=== PATIENT | male | born 1985 | race Caucasian/White ===

== ENCOUNTER 2017-03-22 22:04 | Emergency (ER) | payer OTHER ==
[~2017-03-22] VITALS: Ht 170.2 cm; Wt 72.6 kg
[~2017-03-22 22:04] MED LIST: POTASSIUM CHLO20 MEQ PO
[2017-03-22 22:44] LABS: BASOPHILS ABSOLUTE AUTO 0.01 K/mm3 (0.00-0.23); BASOPHILS PERCENT AUTO 0 % (0-2); EOSINOPHILS PERCENT AUTO 0 % (0-6); Hematocrit 51.3 % (37.0-53.0); Hemoglobin 17.6 g/dL (13.5-17.5); IMMATURE GRAN ABSOLUTE AUTO 0.13 K/mm3 (0.00-0.10); IMMATURE GRAN PERCENT AUTO 1 % (0-1); LYMPHOCYTES ABSOLUTE AUTO 1.17 K/mm3 (0.84-5.20); LYMPHOCYTES PERCENT AUTO 6 % (21-46); MONOCYTES ABSOLUTE AUTO 0.85 K/mm3 (0.16-1.47); MONOCYTES PERCENT AUTO 5 % (4-13); Mean Corpuscular HGB 30.5 pg (26.0-34.0); Mean Corpuscular HGB Conc 34.3 g/dL (31.5-36.5); Mean Corpuscular Volume 89 fL (80-100); Mean Platelet Volume 11.4 fL (9.1-12.4); NEUTROPHILS ABSOLUTE AUTO 16.92 K/mm3 (1.96-9.15); NEUTROPHILS PERCENT AUTO 89 % (41-73); Platelet Count 286 K/mm3 (150-400); RDW Coefficient Variation 13.3 % (11.7-14.2); RDW Standard Deviation 43.3 fL (35.1-46.3); Red Blood Cell Count 5.77 M/mm3 (4.30-5.90); White Blood Cell Count 19.08 K/mm3 (4.00-11.30)
[2017-03-22 23:02] LABS: Alanine Aminotransfer (ALT/SGP 27 U/L (12-78); Albumin, Blood 4.7 g/dL (3.4-5.0); Albumin/Globulin Ratio 1.1 (0.8-1.8); Alk Phos 89 U/L (50-136); Anion Gap 11 mmol/L (6-16); Aspartate Aminotrans (AST/SGOT 19 U/L (12-37); Bilirubin, Total 0.8 mg/dL (0.1-1.0); Blood Urea Nitrogen 21 mg/dL (8-24); Bun/Creatinine Ratio 24.1 (12.0-20.0); CO2, Blood 26 mmol/L (21-32); Calcium, Blood 10.2 mg/dL (8.5-10.1); Chloride, Blood 103 mmol/L (98-108); Creatinine, Blood 0.87 mg/dL (0.60-1.20); Globulin, Blood 4.2 g/dL (2.2-4.0); Glomerular Filtration Rate >60 (60-); Glucose, Blood 203 mg/dL (70-99); Potassium, Blood 3.8 mmol/L (3.5-5.5); Sodium, Blood 140 mmol/L (136-145); Total Protein, Blood 8.9 g/dL (6.4-8.2)
[2017-03-23] MEDS ORDERED: PROM25 PO (03:42)
[2017-10-13] MEDS ORDERED: ACET325 PO (09:04)
[2017-10-13] MEDS ORDERED: CIPR500 PO (09:04)
[2017-10-13] MEDS ORDERED: CLIN150 PO (09:08)
[2017-10-13] MEDS ORDERED: PANT20 PO (09:08)
[2017-10-13] MEDS ORDERED: PROM25 PO (09:09)
[2018-02-17] MEDS ORDERED: K-Dur20 MEQ PO (13:38)
[2018-02-17] MEDS ORDERED: ONDA4ODT MM (13:38)
== END 2017-03-23 03:55 | disposition home or self-care (01) ==
LOC: ER 22:04
PROVIDERS: Emergency Medicine
DX: A08.4 Viral intestinal infection, unspecified (principal); Z87.891 Personal history of nicotine dependence; Z88.0 Allergy status to penicillin; Z88.5 Allergy status to narcotic agent
CPT/HCPCS: 36415; 74177; 80053; 83690; 85025; 96361; 96374; 96375; 99284; J1170; J2405; J2550; J7030; Q9967

== ENCOUNTER 2017-06-22 18:51 | Emergency (ER) | payer OTHER ==
[~2017-06-22] VITALS: Ht 172.7 cm; Wt 61.2 kg
[~2017-06-22 18:51] MED LIST changes: +PROM25 PO
[2017-06-22 19:19] LABS: Source, Urine Clean Catch
[2017-06-22 19:24] LABS: BASOPHILS ABSOLUTE AUTO 0.02 K/mm3 (0.00-0.23); BASOPHILS PERCENT AUTO 0 % (0-2); EOSINOPHILS PERCENT AUTO 0 % (0-6); Hematocrit 49.6 % (37.0-53.0); Hemoglobin 17.6 g/dL (13.5-17.5); IMMATURE GRAN ABSOLUTE AUTO 0.08 K/mm3 (0.00-0.10); IMMATURE GRAN PERCENT AUTO 1 % (0-1); LYMPHOCYTES ABSOLUTE AUTO 0.77 K/mm3 (0.84-5.20); LYMPHOCYTES PERCENT AUTO 6 % (21-46); MONOCYTES ABSOLUTE AUTO 0.38 K/mm3 (0.16-1.47); MONOCYTES PERCENT AUTO 3 % (4-13); Mean Corpuscular HGB 30.1 pg (26.0-34.0); Mean Corpuscular HGB Conc 35.5 g/dL (31.5-36.5); Mean Corpuscular Volume 85 fL (80-100); Mean Platelet Volume 11.2 fL (9.1-12.4); NEUTROPHILS ABSOLUTE AUTO 12.79 K/mm3 (1.96-9.15); NEUTROPHILS PERCENT AUTO 91 % (41-73); Platelet Count 268 K/mm3 (150-400); RDW Coefficient Variation 12.6 % (11.7-14.2); RDW Standard Deviation 38.3 fL (35.1-46.3); Red Blood Cell Count 5.84 M/mm3 (4.30-5.90); White Blood Cell Count 14.04 K/mm3 (4.00-11.30)
[2017-06-22 19:27] LABS: Appearance, Urine Hazy (Clear); Bilirubin, Urine Neg (Neg); Blood, Urine 2+ (Neg); Color, Urine Yellow (P-Yellow); Glucose Qualitative, Urine Neg (Neg); Ketones, Urine 4+ (Neg); Leukocyte Esterase, Urine 1+ (Neg); Nitrite, Urine Neg (Neg); Protein, Urine 2+ (Neg); Urobilinogen, Urine NORM (Normal)
[2017-06-22 19:39] LABS: Mucus Light (0-Heavy)
[2017-06-22 19:40] LABS: Amorphous Light (0-Heavy); Bacteria Few /hpf; Squamous Epithelial Cells Few /hpf (Few); White Blood Cells, Urine 0-2 /hpf (0-5)
[2017-06-22 19:42] LABS: Alanine Aminotransfer (ALT/SGP 31 U/L (12-78); Albumin, Blood 4.8 g/dL (3.4-5.0); Albumin/Globulin Ratio 1.3 (0.8-1.8); Alk Phos 68 U/L (50-136); Anion Gap 8 mmol/L (6-16); Aspartate Aminotrans (AST/SGOT 21 U/L (12-37); Bilirubin, Total 0.9 mg/dL (0.1-1.0); Blood Urea Nitrogen 17 mg/dL (8-24); Bun/Creatinine Ratio 19.1 (12.0-20.0); CO2, Blood 26 mmol/L (21-32); Calcium, Blood 9.8 mg/dL (8.5-10.1); Chloride, Blood 102 mmol/L (98-108); Creatinine, Blood 0.89 mg/dL (0.60-1.20); Globulin, Blood 3.6 g/dL (2.2-4.0); Glomerular Filtration Rate >60 (60-); Glucose, Blood 164 mg/dL (70-99); Potassium, Blood 3.7 mmol/L (3.5-5.5); Sodium, Blood 136 mmol/L (136-145); Total Protein, Blood 8.4 g/dL (6.4-8.2)
[2017-06-22] MEDS ORDERED: Phenergan25 MG PR (22:48)
[2017-06-22] MEDS ORDERED: Zofran Odt4 MG SL (22:48)
[2017-06-23] MEDS ORDERED: Ultram50 MG PO (18:49)
[2017-06-23] MEDS ORDERED: Protonix40 MG PO (18:49)
[2017-06-23] MEDS ORDERED: Zofran Odt8 MG SL (18:49)
== END 2017-06-22 22:57 | disposition home or self-care (01) ==
LOC: ER 18:51
PROVIDERS: Emergency Medicine
DX: K52.9 Noninfective gastroenteritis and colitis, unspecified (principal); Z88.0 Allergy status to penicillin; Z88.5 Allergy status to narcotic agent; Z87.891 Personal history of nicotine dependence
CPT/HCPCS: 36415; 74176; 80053; 81001; 83690; 85025; 87086; 93005; 93010; 96361; 96374; 96375; 96376; 99284; J2405; J2550; J3010; J7030

== ENCOUNTER 2017-06-23 13:46 | Emergency (ER) | payer OTHER ==
[~2017-06-23] VITALS: Ht 172.7 cm; Wt 61.2 kg
[~2017-06-23 13:46] MED LIST changes: +Phenergan25 MG PR; +Zofran Odt4 MG SL
[2017-06-23 14:27] LABS: BASOPHILS ABSOLUTE AUTO 0.02 K/mm3 (0.00-0.23); BASOPHILS PERCENT AUTO 0 % (0-2); EOSINOPHILS PERCENT AUTO 0 % (0-6); Hematocrit 49.4 % (37.0-53.0); Hemoglobin 17.5 g/dL (13.5-17.5); IMMATURE GRAN ABSOLUTE AUTO 0.07 K/mm3 (0.00-0.10); IMMATURE GRAN PERCENT AUTO 0 % (0-1); LYMPHOCYTES ABSOLUTE AUTO 1.84 K/mm3 (0.84-5.20); LYMPHOCYTES PERCENT AUTO 11 % (21-46); MONOCYTES ABSOLUTE AUTO 1.46 K/mm3 (0.16-1.47); MONOCYTES PERCENT AUTO 9 % (4-13); Mean Corpuscular HGB 29.6 pg (26.0-34.0); Mean Corpuscular HGB Conc 35.4 g/dL (31.5-36.5); Mean Corpuscular Volume 84 fL (80-100); NEUTROPHILS ABSOLUTE AUTO 13.06 K/mm3 (1.96-9.15); NEUTROPHILS PERCENT AUTO 79 % (41-73); Platelet Count 277 K/mm3 (150-400); RDW Coefficient Variation 12.6 % (11.7-14.2); RDW Standard Deviation 38.5 fL (35.1-46.3); Red Blood Cell Count 5.91 M/mm3 (4.30-5.90); White Blood Cell Count 16.45 K/mm3 (4.00-11.30)
[2017-06-23 14:50] LABS: Alanine Aminotransfer (ALT/SGP 31 U/L (12-78); Albumin, Blood 4.6 g/dL (3.4-5.0); Albumin/Globulin Ratio 1.2 (0.8-1.8); Alk Phos 63 U/L (50-136); Anion Gap 10 mmol/L (6-16); Aspartate Aminotrans (AST/SGOT 18 U/L (12-37); Bilirubin, Total 1.2 mg/dL (0.1-1.0); Blood Urea Nitrogen 18 mg/dL (8-24); Bun/Creatinine Ratio 20.7 (12.0-20.0); CO2, Blood 25 mmol/L (21-32); Calcium, Blood 9.4 mg/dL (8.5-10.1); Chloride, Blood 107 mmol/L (98-108); Creatinine, Blood 0.87 mg/dL (0.60-1.20); Globulin, Blood 3.7 g/dL (2.2-4.0); Glomerular Filtration Rate >60 (60-); Glucose, Blood 124 mg/dL (70-99); Potassium, Blood 3.3 mmol/L (3.5-5.5); Sodium, Blood 142 mmol/L (136-145); Total Protein, Blood 8.3 g/dL (6.4-8.2)
[2017-06-23] MEDS ORDERED: Ultram50 MG PO (18:49)
[2017-06-23] MEDS ORDERED: Protonix40 MG PO (18:49)
[2017-06-23] MEDS ORDERED: Zofran Odt8 MG SL (18:49)
== END 2017-06-23 19:54 | disposition home or self-care (01) ==
LOC: ER 13:46
PROVIDERS: Physician Assistant Medical
DX: E87.6 Hypokalemia (principal); Z88.0 Allergy status to penicillin; Z88.5 Allergy status to narcotic agent; Z87.891 Personal history of nicotine dependence
CPT/HCPCS: 36415; 80053; 83690; 85025; 96361; 96374; 96375; 96376; 99283; C9113; J1200; J1630; J2405; J7030

== ENCOUNTER 2017-06-25 10:49 | Emergency (ER) | payer OTHER ==
[~2017-06-25] VITALS: Ht 172.7 cm; Wt 61.2 kg
[~2017-06-25 10:49] MED LIST changes: +Protonix40 MG PO; +Ultram50 MG PO; +Zofran Odt8 MG SL
[2017-06-25 13:05] LABS: Calcium, Ionized (POC) 1.14 mmol/L (1.10-1.46); Chloride (POC) 103 mmol/L (98-108); Creatinine (POC) 0.8 mg/dL (0.8-1.3); Glucose (ISTAT POC) 107 mg/dL (70-99); Hemoglobin (POC) 14.6 g/dL (13.5-17.5); Potassium (POC) 3.1 mmol/L (3.5-5.5); Sodium (POC) 143 mmol/L (135-148); Total CO2 (POC) 26 mmol/L (21-32)
== END 2017-06-25 16:41 | disposition home or self-care (01) ==
LOC: ER 10:49
PROVIDERS: Emergency Medicine
DX: K31.89 Other diseases of stomach and duodenum (principal); R11.2 Nausea with vomiting, unspecified; K59.00 Constipation, unspecified; Z88.0 Allergy status to penicillin; Z88.5 Allergy status to narcotic agent; Z87.891 Personal history of nicotine dependence; Z79.899 Other long term (current) drug therapy
CPT/HCPCS: 80047; 85014; 96374; 99283; J2765

== ENCOUNTER → 2018-02-25 | Outpatient (CLI) | payer OTHER ==
[~2018-02-25] MED LIST changes: +ACET325 PO; +CIPR500 PO; +CLIN150 PO; +K-Dur20 MEQ PO; +ONDA4ODT MM; +PANT20 PO
[2018-02-25 18:14] LABS: Anion Gap 5 mmol/L (6-16); Blood Urea Nitrogen 18 mg/dL (8-24); Bun/Creatinine Ratio 18.3 (12.0-20.0); CO2, Blood 28 mmol/L (21-32); Calcium, Blood 8.7 mg/dL (8.5-10.1); Chloride, Blood 110 mmol/L (98-108); Creatinine, Blood 0.98 mg/dL (0.60-1.20); Glomerular Filtration Rate >60 (60-); Glucose, Blood 80 mg/dL (70-99); Potassium, Blood 4.4 mmol/L (3.5-5.5); Sodium, Blood 143 mmol/L (136-145)
== END ==
LOC: LAB SHORT 17:26 → LAB 17:26
PROVIDERS: Nurse Practitioner Family
DX: E87.6 Hypokalemia (principal)
CPT/HCPCS: 80048

== ENCOUNTER 2018-03-18 11:09 | Emergency (ER) | payer OTHER ==
[~2018-03-18] VITALS: Ht 160 cm; Wt 61.2 kg
[2018-03-18 12:07] LABS: BASOPHILS ABSOLUTE AUTO 0.05 K/mm3 (0.00-0.23); BASOPHILS PERCENT AUTO 0 % (0-2); EOSINOPHILS PERCENT AUTO 0 % (0-6); Hematocrit 51.8 % (37.0-53.0); Hemoglobin 18.6 g/dL (13.5-17.5); IMMATURE GRAN ABSOLUTE AUTO 0.13 K/mm3 (0.00-0.10); IMMATURE GRAN PERCENT AUTO 1 % (0-1); LYMPHOCYTES ABSOLUTE AUTO 2.62 K/mm3 (0.84-5.20); LYMPHOCYTES PERCENT AUTO 18 % (21-46); MONOCYTES ABSOLUTE AUTO 1.39 K/mm3 (0.16-1.47); MONOCYTES PERCENT AUTO 9 % (4-13); Mean Corpuscular HGB 30.4 pg (26.0-34.0); Mean Corpuscular HGB Conc 35.9 g/dL (31.5-36.5); Mean Corpuscular Volume 85 fL (80-100); NEUTROPHILS PERCENT AUTO 72 % (41-73); Platelet Count 312 K/mm3 (150-400); RDW Coefficient Variation 12.6 % (11.7-14.2); RDW Standard Deviation 39.1 fL (35.1-46.3); Red Blood Cell Count 6.12 M/mm3 (4.30-5.90); White Blood Cell Count 14.89 K/mm3 (4.00-11.30)
[2018-03-18 12:24] LABS: Alanine Aminotransfer (ALT/SGP 26 U/L (12-78); Albumin, Blood 4.6 g/dL (3.4-5.0); Albumin/Globulin Ratio 1.3 (0.8-1.8); Alk Phos 69 U/L (50-136); Anion Gap 15 mmol/L (6-16); Aspartate Aminotrans (AST/SGOT 14 U/L (12-37); Bilirubin, Total 1.9 mg/dL (0.1-1.0); Blood Urea Nitrogen 30 mg/dL (8-24); CO2, Blood 27 mmol/L (21-32); Calcium, Blood 9.6 mg/dL (8.5-10.1); Chloride, Blood 91 mmol/L (98-108); Creatinine, Blood 1.07 mg/dL (0.60-1.20); Globulin, Blood 3.6 g/dL (2.2-4.0); Glomerular Filtration Rate >60 (60-); Glucose, Blood 115 mg/dL (70-99); Potassium, Blood 2.9 mmol/L (3.5-5.5); Sodium, Blood 133 mmol/L (136-145); Total Protein, Blood 8.2 g/dL (6.4-8.2)
[2018-03-18 15:12] LABS: Source, Urine Clean Catch
[2018-03-18 15:17] LABS: Blood, Urine 3+ (Neg); Glucose Qualitative, Urine Neg (Neg); Ketones, Urine 4+ (Neg); Leukocyte Esterase, Urine 1+ (Neg); Nitrite, Urine Neg (Neg); Protein, Urine 2+ (Neg); Specific Gravity, Urine 1.015 (1.003-1.022); Urobilinogen, Urine 2+ (Normal)
[2018-03-18 15:46] LABS: Appearance, Urine Hazy (Clear); Bilirubin, Urine 1+ (Neg); Color, Urine Amber (P-Yellow)
[2018-03-18 15:48] LABS: Bacteria Mod /hpf; Hyaline Casts Rare /lpf (0-2); Mucus Mod (0-Heavy); Squamous Epithelial Cells Rare /hpf (Few)
== END 2018-03-18 20:01 | disposition home or self-care (01) ==
LOC: ER 11:09
PROVIDERS: Emergency Medicine
DX: N39.0 Urinary tract infection, site not specified (principal); E87.6 Hypokalemia; Z87.891 Personal history of nicotine dependence
CPT/HCPCS: 36415; 80053; 81001; 83690; 85025; 87086; 93005; 93010; 96361; 96365; 96366; 96375; 96376; 99285-25; J2405; J2550; J2765; J3480; J7030

== ENCOUNTER → 2018-03-20 | Outpatient (CLI) | payer OTHER ==
[2018-03-20 18:03] LABS: BASOPHILS ABSOLUTE AUTO 0.02 K/mm3 (0.00-0.23); BASOPHILS PERCENT AUTO 0 % (0-2); EOSINOPHILS ABSOLUTE AUTO 0.01 K/mm3 (0.00-0.68); EOSINOPHILS PERCENT AUTO 0 % (0-6); Hematocrit 48.3 % (37.0-53.0); Hemoglobin 16.7 g/dL (13.5-17.5); IMMATURE GRAN ABSOLUTE AUTO 0.06 K/mm3 (0.00-0.10); IMMATURE GRAN PERCENT AUTO 1 % (0-1); LYMPHOCYTES PERCENT AUTO 32 % (21-46); MONOCYTES ABSOLUTE AUTO 1.02 K/mm3 (0.16-1.47); MONOCYTES PERCENT AUTO 10 % (4-13); Mean Corpuscular HGB 30.2 pg (26.0-34.0); Mean Corpuscular HGB Conc 34.6 g/dL (31.5-36.5); Mean Corpuscular Volume 87 fL (80-100); Mean Platelet Volume 11.4 fL (9.1-12.4); NEUTROPHILS ABSOLUTE AUTO 6.21 K/mm3 (1.96-9.15); NEUTROPHILS PERCENT AUTO 58 % (41-73); Platelet Count 247 K/mm3 (150-400); RDW Coefficient Variation 12.2 % (11.7-14.2); RDW Standard Deviation 39.4 fL (35.1-46.3); Red Blood Cell Count 5.53 M/mm3 (4.30-5.90); White Blood Cell Count 10.72 K/mm3 (4.00-11.30)
[2018-03-20 18:59] LABS: Alanine Aminotransfer (ALT/SGP 21 U/L (12-78); Albumin, Blood 4.2 g/dL (3.4-5.0); Albumin/Globulin Ratio 1.2 (0.8-1.8); Alk Phos 58 U/L (50-136); Anion Gap 8 mmol/L (6-16); Aspartate Aminotrans (AST/SGOT 15 U/L (12-37); Bilirubin, Total 0.9 mg/dL (0.1-1.0); Blood Urea Nitrogen 16 mg/dL (8-24); Bun/Creatinine Ratio 14.2 (12.0-20.0); CO2, Blood 28 mmol/L (21-32); Chloride, Blood 99 mmol/L (98-108); Creatinine, Blood 1.13 mg/dL (0.60-1.20); Globulin, Blood 3.4 g/dL (2.2-4.0); Glomerular Filtration Rate >60 (60-); Glucose, Blood 105 mg/dL (70-99); Potassium, Blood 3.6 mmol/L (3.5-5.5); Sodium, Blood 135 mmol/L (136-145); Total Protein, Blood 7.6 g/dL (6.4-8.2)
[2018-03-24 14:08] LABS: CHLAMYDIA BY NAA Negative (Negative); GONOCOCCUS BY NAA Negative (Negative); TRICH VAG BY NAA Negative (Negative)
== END ==
LOC: LAB SHORT 17:51 → LAB 17:51
PROVIDERS: Nurse Practitioner Family
DX: R10.9 Unspecified abdominal pain (principal)
CPT/HCPCS: 80053; 83690; 85025; 87491; 87591; 87661

== ENCOUNTER 2018-10-28 13:13 | Emergency (ER) | payer OTHER ==
[~2018-10-28] VITALS: Ht 165.1 cm; Wt 65.8 kg
[2018-10-28 13:38] LABS: BASOPHILS ABSOLUTE AUTO 0.03 K/mm3 (0.00-0.23); BASOPHILS PERCENT AUTO 0 % (0-2); EOSINOPHILS PERCENT AUTO 0 % (0-6); Hematocrit 49.2 % (37.0-53.0); Hemoglobin 16.5 g/dL (13.5-17.5); IMMATURE GRAN ABSOLUTE AUTO 0.07 K/mm3 (0.00-0.10); IMMATURE GRAN PERCENT AUTO 1 % (0-1); LYMPHOCYTES ABSOLUTE AUTO 1.21 K/mm3 (0.84-5.20); LYMPHOCYTES PERCENT AUTO 10 % (21-46); MONOCYTES ABSOLUTE AUTO 0.56 K/mm3 (0.16-1.47); MONOCYTES PERCENT AUTO 4 % (4-13); Mean Corpuscular HGB 30.3 pg (26.0-34.0); Mean Corpuscular HGB Conc 33.5 g/dL (31.5-36.5); Mean Corpuscular Volume 90 fL (80-100); Mean Platelet Volume 10.8 fL (9.1-12.4); NEUTROPHILS ABSOLUTE AUTO 10.75 K/mm3 (1.96-9.15); NEUTROPHILS PERCENT AUTO 85 % (41-73); Platelet Count 270 K/mm3 (150-400); RDW Coefficient Variation 13.1 % (11.7-14.2); RDW Standard Deviation 43.4 fL (35.1-46.3); Red Blood Cell Count 5.45 M/mm3 (4.30-5.90); White Blood Cell Count 12.62 K/mm3 (4.00-11.30)
[2018-10-28 13:51] LABS: Alanine Aminotransfer (ALT/SGP 27 U/L (12-78); Albumin, Blood 4.4 g/dL (3.4-5.0); Albumin/Globulin Ratio 1.2 (0.8-1.8); Alk Phos 58 U/L (50-136); Anion Gap 13 mmol/L (6-16); Aspartate Aminotrans (AST/SGOT 28 U/L (12-37); Bilirubin, Total 0.9 mg/dL (0.1-1.0); Blood Urea Nitrogen 14 mg/dL (8-24); Bun/Creatinine Ratio 18.4 (12.0-20.0); CO2, Blood 21 mmol/L (21-32); Calcium, Blood 9.6 mg/dL (8.5-10.1); Chloride, Blood 108 mmol/L (98-108); Creatinine, Blood 0.76 mg/dL (0.60-1.20); Globulin, Blood 3.6 g/dL (2.2-4.0); Glomerular Filtration Rate >60 (60-); Glucose, Blood 134 mg/dL (70-99); Potassium, Blood 4.1 mmol/L (3.5-5.5); Sodium, Blood 142 mmol/L (136-145)
[2018-10-28] MEDS ORDERED: PROM25 PO (14:52)
== END 2018-10-28 16:30 | disposition home or self-care (01) ==
LOC: ER 13:13
PROVIDERS: Emergency Medicine
DX: R11.2 Nausea with vomiting, unspecified (principal); Z88.0 Allergy status to penicillin; Z88.5 Allergy status to narcotic agent; Z87.891 Personal history of nicotine dependence
CPT/HCPCS: 36415; 80053; 83690; 85025; 96374; 96375; 99284-25; J0780; J1200

== ENCOUNTER 2019-02-17 15:08 | Emergency (ER) | payer OTHER ==
[~2019-02-17] VITALS: Ht 167.6 cm; Wt 63.5 kg
[2019-02-17 15:41] LABS: BASOPHILS ABSOLUTE AUTO 0.05 K/mm3 (0.00-0.23); BASOPHILS PERCENT AUTO 0 % (0-2); EOSINOPHILS ABSOLUTE AUTO 0.01 K/mm3 (0.00-0.68); EOSINOPHILS PERCENT AUTO 0 % (0-6); Hematocrit 53.4 % (37.0-53.0); Hemoglobin 19.5 g/dL (13.5-17.5); IMMATURE GRAN ABSOLUTE AUTO 0.24 K/mm3 (0.00-0.10); IMMATURE GRAN PERCENT AUTO 1 % (0-1); LYMPHOCYTES ABSOLUTE AUTO 1.72 K/mm3 (0.84-5.20); LYMPHOCYTES PERCENT AUTO 7 % (21-46); MONOCYTES ABSOLUTE AUTO 2.46 K/mm3 (0.16-1.47); MONOCYTES PERCENT AUTO 9 % (4-13); Mean Corpuscular HGB 29.9 pg (26.0-34.0); Mean Corpuscular HGB Conc 36.5 g/dL (31.5-36.5); Mean Corpuscular Volume 82 fL (80-100); Mean Platelet Volume 11.5 fL (9.1-12.4); NEUTROPHILS ABSOLUTE AUTO 21.56 K/mm3 (1.96-9.15); NEUTROPHILS PERCENT AUTO 83 % (41-73); Platelet Count 264 K/mm3 (150-400); RDW Coefficient Variation 13.2 % (11.7-14.2); RDW Standard Deviation 38.4 fL (35.1-46.3); Red Blood Cell Count 6.53 M/mm3 (4.30-5.90); White Blood Cell Count 26.04 K/mm3 (4.00-11.30)
[2019-02-17 16:08] LABS: Troponin I 0.086 ng/mL (0.000-0.040)
[2019-02-17 16:09] LABS: Albumin, Blood 5.1 g/dL (3.4-5.0); Albumin/Globulin Ratio 1.3 (0.8-1.8); Bilirubin, Total 1.6 mg/dL (0.1-1.0); Bun/Creatinine Ratio 14.4 (12.0-20.0); Calcium, Blood 9.7 mg/dL (8.5-10.1); Creatinine, Blood 6.48 mg/dL (0.60-1.20); Globulin, Blood 3.9 g/dL (2.2-4.0); Potassium, Blood 4.3 mmol/L (3.5-5.5)
== END 2019-02-17 18:10 | disposition short-term general hospital (02) ==
LOC: ER 15:08
PROVIDERS: Physician Assistant
DX: A41.9 Sepsis, unspecified organism (principal); K22.3 Perforation of esophagus; J98.2 Interstitial emphysema; I21.4 Non-ST elevation (NSTEMI) myocardial infarction; N17.9 Acute kidney failure, unspecified; Z88.0 Allergy status to penicillin; Z88.5 Allergy status to narcotic agent; Z87.891 Personal history of nicotine dependence
CPT/HCPCS: 36415; 74022; 80053; 83690; 84484; 85025; 93005; 93010; 96365; 96375; 99285-25; J0744; J2550; J7030

== ENCOUNTER → 2019-02-25 | Outpatient (CLI) | payer OTHER ==
[2019-02-25 19:38] LABS: BASOPHILS ABSOLUTE AUTO 0.05 K/mm3 (0.00-0.23); BASOPHILS PERCENT AUTO 1 % (0-2); EOSINOPHILS PERCENT AUTO 1 % (0-6); Hematocrit 43.8 % (37.0-53.0); Hemoglobin 14.4 g/dL (13.5-17.5); IMMATURE GRAN ABSOLUTE AUTO 0.26 K/mm3 (0.00-0.10); IMMATURE GRAN PERCENT AUTO 3 % (0-1); LYMPHOCYTES ABSOLUTE AUTO 2.41 K/mm3 (0.84-5.20); LYMPHOCYTES PERCENT AUTO 28 % (21-46); MONOCYTES ABSOLUTE AUTO 0.83 K/mm3 (0.16-1.47); MONOCYTES PERCENT AUTO 10 % (4-13); Mean Corpuscular HGB 29.7 pg (26.0-34.0); Mean Corpuscular HGB Conc 32.9 g/dL (31.5-36.5); Mean Platelet Volume 11.6 fL (9.1-12.4); NEUTROPHILS PERCENT AUTO 58 % (41-73); Platelet Count 256 K/mm3 (150-400); RDW Coefficient Variation 12.6 % (11.7-14.2); RDW Standard Deviation 40.9 fL (35.1-46.3); Red Blood Cell Count 4.85 M/mm3 (4.30-5.90); White Blood Cell Count 8.75 K/mm3 (4.00-11.30)
[2019-02-25 19:39] LABS: Mean Corpuscular Volume 90 fL (80-100)
[2019-02-25 19:46] LABS: Alanine Aminotransfer (ALT/SGP 36 U/L (12-78); Albumin, Blood 3.7 g/dL (3.4-5.0); Albumin/Globulin Ratio 1.2 (0.8-1.8); Alk Phos 44 U/L (50-136); Anion Gap 7 mmol/L (6-16); Aspartate Aminotrans (AST/SGOT 26 U/L (12-37); Bilirubin, Total 0.3 mg/dL (0.1-1.0); Blood Urea Nitrogen 22 mg/dL (8-24); Bun/Creatinine Ratio 24.1 (12.0-20.0); CHOL/HDL RATIO 2.3; CO2, Blood 26 mmol/L (21-32); Calcium, Blood 8.7 mg/dL (8.5-10.1); Chloride, Blood 106 mmol/L (98-108); Cholesterol 123 mg/dL (50-200); Creatinine, Blood 0.91 mg/dL (0.60-1.20); Globulin, Blood 3.1 g/dL (2.2-4.0); Glomerular Filtration Rate >60 (60-); Glucose, Blood 88 mg/dL (70-99); HDL Cholesterol 53 mg/dL (>39); LDL/HDL RATIO 1.1; Low Density Lipoprotein Chol 57 mg/dL (0-110); Potassium, Blood 4.1 mmol/L (3.5-5.5); Sodium, Blood 139 mmol/L (136-145); Total Protein, Blood 6.8 g/dL (6.4-8.2); Triglycerides 64 mg/dL (30-140); Very Low Density Lipoprot Chol 12 mg/dL (6-28)
== END | disposition home or self-care (01) ==
LOC: LAB SHORT 18:43 → LAB 18:43
PROVIDERS: Nurse Practitioner Family
DX: R11.2 Nausea with vomiting, unspecified (principal)
CPT/HCPCS: 80053; 80061; 83690; 85025

== ENCOUNTER → 2019-04-01 | Outpatient (CLI) | payer OTHER ==
[2019-04-01 23:50] LABS: Adenovirus F 40/41 Not Detected (NOT DETECT); Astrovirus Not Detected (NOT DETECT); Campylobacter Sp Not Detected (NOT DETECT); Cryptosporidium Not Detected (NOT DETECT); Cyclospora Cayetanensis Not Detected (NOT DETECT); E. Coli O157 Not Detected (NOT DETECT); Entamoeba Histolytica Not Detected (NOT DETECT); Enteroaggregative E. coli-EAEC Not Detected (NOT DETECT); Enteropathogenic E. coli-EPEC Not Detected (NOT DETECT); Enterotoxigenic E. coli-ETEC Not Detected (NOT DETECT); Giardia Lamblia Not Detected (NOT DETECT); Norovirus GI/GII Not Detected (NOT DETECT); Plesiomonas Shigelloides Not Detected (NOT DETECT); Rotavirus A Not Detected (NOT DETECT); Salmonella Sp Not Detected (NOT DETECT); Sapovirus Not Detected (NOT DETECT); Shiga Toxin-prod E. coli-STEC Not Detected (NOT DETECT); Shigella/Enteroin E. coli-EIEC Not Detected (NOT DETECT); Vibrio Cholerae Not Detected (NOT DETECT); Vibrio Sp Not Detected (NOT DETECT); Yersinia Enterocolitica Not Detected (NOT DETECT)
== END | disposition home or self-care (01) ==
LOC: LAB 16:18 → LAB SHORT 16:18
PROVIDERS: Nurse Practitioner Family
DX: R11.2 Nausea with vomiting, unspecified (principal)
CPT/HCPCS: 0097U; 87324; 87338

== ENCOUNTER 2019-04-30 08:59 | Day surgery (SDC) | payer OTHER ==
[~2019-04-30] VITALS: Ht 167.6 cm; Wt 58.1 kg
[2019-04-30] MEDS ORDERED: ONDA4 PO (09:27)
--- NOTE | 2019-04-30 09:44 | NUR ---
Ambulatory in Day Surgery History, Chart, Medications and Allergies reviewed before start of procedure. Patient States Post-Procedure ride home has been arranged. Patient confirms NPO status and agrees with scheduled surgery.
--- NOTE | 2019-04-30 10:46 | NUR ---
04/30/19 1046 Dmitry Martínez Bite Block Placed. PATIENT DETERMINED TO BE ASA APPROPRIATE FOR PROPOFOL SEDATION PRIOR TO START OF PROCEDURE BY . History, Chart, Medications and Allergies reviewed before start of procedure.MONITOR INTACT WITH CONTINUOUS PULSE OXIMETRY AND INTERMITTENT BP.O2 VIA N/C INTACT THROUGHOUT SEDATION/PROCEDURE.
--- NOTE | 2019-04-30 11:32 | NUR ---
PT RESPONSIVE, BUT VERY SLEEPY. VSS. TOLERATING ORAL FLUIDS. WILL CONTINUE TO MONITOR.
--- NOTE | 2019-04-30 12:24 | NUR ---
Patient up to Ambulate independently. Gait steady. Discharge instructions reviewed with patient. Patient verbalizes understanding. Copy given to patient to take home. Discharged via wheelchair to private car for ride home.
== END 2019-04-30 12:00 | disposition home or self-care (01) ==
LOC: ORSCMMR 08:59 → ORD 10:00 → ORSCMMR 10:00
PROVIDERS: Internal Medicine Gastroenterology
PROC: 0DB78ZX Excision of Stomach, Pylorus, Via Natural or Artificial Opening Endoscopic, Diagnostic (ICD-10-PCS; principal; 2019-04-30 10:00)
DX: R11.2 Nausea with vomiting, unspecified (principal); K25.4 Chronic or unspecified gastric ulcer with hemorrhage
CPT/HCPCS: 88305; J2250; J2704; J7120

== ENCOUNTER 2019-11-18 10:52 | Emergency (ER) | payer OTHER ==
[~2019-11-18] VITALS: Ht 170.2 cm; Wt 61.2 kg
[~2019-11-18 10:52] MED LIST changes: +OMEP20ER PO; +ONDA4 PO
[2019-11-18 11:30] LABS: BASOPHILS ABSOLUTE AUTO 0.03 K/mm3 (0.00-0.23); BASOPHILS PERCENT AUTO 0 % (0-2); EOSINOPHILS ABSOLUTE AUTO 0.02 K/mm3 (0.00-0.68); EOSINOPHILS PERCENT AUTO 0 % (0-6); Hematocrit 50.6 % (37.0-53.0); Hemoglobin 17.1 g/dL (13.5-17.5); IMMATURE GRAN ABSOLUTE AUTO 0.09 K/mm3 (0.00-0.10); IMMATURE GRAN PERCENT AUTO 1 % (0-1); LYMPHOCYTES ABSOLUTE AUTO 2.13 K/mm3 (0.84-5.20); LYMPHOCYTES PERCENT AUTO 18 % (21-46); MONOCYTES ABSOLUTE AUTO 0.51 K/mm3 (0.16-1.47); MONOCYTES PERCENT AUTO 4 % (4-13); Mean Corpuscular HGB 30.4 pg (26.0-34.0); Mean Corpuscular HGB Conc 33.8 g/dL (31.5-36.5); Mean Corpuscular Volume 90 fL (80-100); NEUTROPHILS ABSOLUTE AUTO 9.11 K/mm3 (1.96-9.15); NEUTROPHILS PERCENT AUTO 77 % (41-73); Platelet Count 260 K/mm3 (150-400); RDW Coefficient Variation 12.9 % (11.7-14.2); RDW Standard Deviation 42.5 fL (35.1-46.3); Red Blood Cell Count 5.62 M/mm3 (4.30-5.90); White Blood Cell Count 11.89 K/mm3 (4.00-11.30)
[2019-11-18 11:41] LABS: Albumin, Blood 4.8 g/dL (3.4-5.0); Albumin/Globulin Ratio 1.5 (0.8-1.8); Alk Phos 68 U/L (50-136); Anion Gap 6 mmol/L (6-16); Aspartate Aminotrans (AST/SGOT 27 U/L (12-37); Bilirubin, Total 0.7 mg/dL (0.1-1.0); Blood Urea Nitrogen 11 mg/dL (8-24); Bun/Creatinine Ratio 10.5 (12.0-20.0); CO2, Blood 27 mmol/L (21-32); Calcium, Blood 9.9 mg/dL (8.5-10.1); Chloride, Blood 112 mmol/L (98-108); Creatinine, Blood 1.05 mg/dL (0.60-1.20); Globulin, Blood 3.3 g/dL (2.2-4.0); Glomerular Filtration Rate >60 (60-); Glucose, Blood 137 mg/dL (70-99); Potassium, Blood 3.6 mmol/L (3.5-5.5); Sodium, Blood 145 mmol/L (136-145); Total Protein, Blood 8.1 g/dL (6.4-8.2)
[2019-11-18 11:45] LABS: Alanine Aminotransfer (ALT/SGP 39 U/L (12-78)
[2019-11-18 13:57] LABS: Source, Urine Clean Catch
[2019-11-18 14:02] LABS: Bilirubin, Urine Neg (Neg); Blood, Urine 2+ (Neg); Glucose Qualitative, Urine Neg (Neg); Ketones, Urine 1+ (Neg); Leukocyte Esterase, Urine Neg (Neg); Nitrite, Urine Neg (Neg); Protein, Urine 1+ (Neg); Urobilinogen, Urine NORM (Normal)
[2019-11-18 14:11] LABS: Appearance, Urine Cloudy (Clear); Color, Urine Yellow (P-Yellow)
[2019-11-18 14:12] LABS: Amorphous Mod (0-Heavy); Bacteria Few /hpf; Red Blood Cells, Urine 0-2 /hpf (0-2); Squamous Epithelial Cells Not Seen /hpf (Few); White Blood Cells, Urine 0-2 /hpf (0-5)
[2019-11-18] MEDS ORDERED: COMPAZINE10 MG PO (14:20)
[2019-11-18] MEDS ORDERED: OMEPRAZOLE MAGN20 MG PO (14:20)
== END 2019-11-18 15:32 | disposition home or self-care (01) ==
LOC: ER 10:52
PROVIDERS: Emergency Medicine
DX: K27.9 Peptic ulcer, site unspecified, unspecified as acute or chronic, without hemorrhage or perforation (principal); I10 Essential (primary) hypertension; F12.90 Cannabis use, unspecified, uncomplicated; Z91.19 Patient's noncompliance with other medical treatment and regimen; Z87.891 Personal history of nicotine dependence
CPT/HCPCS: 36415; 74177; 80053; 81001; 83690; 85025; 96361; 96374-59; 96375; 99284-25; J1200; J1630; J2405; J7120; Q9967

== ENCOUNTER → 2019-12-31 | Outpatient (CLI) | payer OTHER ==
[~2019-12-31] MED LIST changes: +COMPAZINE10 MG PO; +OMEPRAZOLE MAGN20 MG PO
[2020-01-01 09:10] LABS: HIV SCREEN 4TH GENERATION WRFX Non Reactive (Non Reactive)
== END | disposition home or self-care (01) ==
LOC: LAB 16:21 → LAB SHORT 16:21
PROVIDERS: Nurse Practitioner Family
DX: Z11.59 Encounter for screening for other viral diseases (principal)
CPT/HCPCS: 86803; 87389

== ENCOUNTER 2020-02-02 13:16 | Emergency (ER) | payer OTHER ==
[~2020-02-02] VITALS: Ht 170.2 cm; Wt 61.2 kg
[2020-02-02 14:02] LABS: BASOPHILS ABSOLUTE AUTO 0.04 K/mm3 (0.00-0.23); BASOPHILS PERCENT AUTO 0 % (0-2); EOSINOPHILS PERCENT AUTO 0 % (0-6); Hematocrit 49.1 % (37.0-53.0); Hemoglobin 16.6 g/dL (13.5-17.5); IMMATURE GRAN ABSOLUTE AUTO 0.13 K/mm3 (0.00-0.10); IMMATURE GRAN PERCENT AUTO 1 % (0-1); LYMPHOCYTES ABSOLUTE AUTO 1.01 K/mm3 (0.84-5.20); LYMPHOCYTES PERCENT AUTO 6 % (21-46); MONOCYTES ABSOLUTE AUTO 0.56 K/mm3 (0.16-1.47); MONOCYTES PERCENT AUTO 3 % (4-13); Mean Corpuscular HGB 29.9 pg (26.0-34.0); Mean Corpuscular HGB Conc 33.8 g/dL (31.5-36.5); Mean Corpuscular Volume 88 fL (80-100); Mean Platelet Volume 11.5 fL (9.1-12.4); NEUTROPHILS ABSOLUTE AUTO 15.54 K/mm3 (1.96-9.15); NEUTROPHILS PERCENT AUTO 90 % (41-73); Platelet Count 261 K/mm3 (150-400); RDW Coefficient Variation 12.9 % (11.7-14.2); RDW Standard Deviation 42.3 fL (35.1-46.3); Red Blood Cell Count 5.56 M/mm3 (4.30-5.90); White Blood Cell Count 17.28 K/mm3 (4.00-11.30)
[2020-02-02 14:23] LABS: Alanine Aminotransfer (ALT/SGP 18 U/L (12-78); Albumin, Blood 4.6 g/dL (3.4-5.0); Albumin/Globulin Ratio 1.3 (0.8-1.8); Alk Phos 59 U/L (50-136); Anion Gap 5 mmol/L (6-16); Aspartate Aminotrans (AST/SGOT 13 U/L (12-37); Bilirubin, Total 0.6 mg/dL (0.1-1.0); Blood Urea Nitrogen 14 mg/dL (8-24); Bun/Creatinine Ratio 15.9 (12.0-20.0); CO2, Blood 26 mmol/L (21-32); Calcium, Blood 9.9 mg/dL (8.5-10.1); Chloride, Blood 111 mmol/L (98-108); Creatinine, Blood 0.88 mg/dL (0.60-1.20); Globulin, Blood 3.6 g/dL (2.2-4.0); Glomerular Filtration Rate >60 (60-); Glucose, Blood 163 mg/dL (70-99); Potassium, Blood 4.4 mmol/L (3.5-5.5); Sodium, Blood 142 mmol/L (136-145); Total Protein, Blood 8.2 g/dL (6.4-8.2)
[2020-02-02 20:35] LABS: Source, Urine Clean Catch
[2020-02-02 20:38] LABS: Appearance, Urine Clear (Clear); Bilirubin, Urine Neg (Neg); Blood, Urine 3+ (Neg); Color, Urine Amber (P-Yellow); Glucose Qualitative, Urine 1+ (Neg); Ketones, Urine 4+ (Neg); Leukocyte Esterase, Urine 1+ (Neg); Nitrite, Urine Neg (Neg); Protein, Urine 2+ (Neg); Specific Gravity, Urine 1.015 (1.003-1.022); Urobilinogen, Urine 1+ (Normal); pH, Urine 6.5 (5.0-8.0)
[2020-02-02 20:43] LABS: Bacteria Many /hpf; Mucus Heavy (0-Heavy); Squamous Epithelial Cells Not Seen /hpf (Few); Yeast/Fungi Urine Few /hpf
[2020-02-02] MEDS ORDERED: CIPR500 PO (21:46)
[2020-02-02] MEDS ORDERED: Flagyl500 MG PO (21:46)
== END 2020-02-02 22:45 | disposition home or self-care (01) ==
LOC: ER 13:16
PROVIDERS: Physician Assistant
DX: K52.9 Noninfective gastroenteritis and colitis, unspecified (principal); N39.0 Urinary tract infection, site not specified; Z87.891 Personal history of nicotine dependence
CPT/HCPCS: 36415; 74022; 74177; 80053; 81001; 83690; 85025; 87086; 96361; 96374-59; 96375; 99285-25; A9270-GY; J1885; J2405; J7030; Q9967

== ENCOUNTER → 2020-02-09 | Outpatient (CLI) | payer OTHER ==
[~2020-02-09] MED LIST changes: +Flagyl500 MG PO; +ONDA4ODT SL
[2020-02-09 18:01] LABS: Appearance, Urine Cloudy (Clear); Blood, Urine 4+ (Neg); Color, Urine Amber (P-Yellow); Glucose Qualitative, Urine Neg (Neg); Ketones, Urine 1+ (Neg); Leukocyte Esterase, Urine 1+ (Neg); Nitrite, Urine Neg (Neg); Protein, Urine 2+ (Neg); Urobilinogen, Urine 1+ (Normal)
[2020-02-09 18:14] LABS: Bilirubin, Urine 1+ (Neg)
[2020-02-09 18:18] LABS: Amorphous Mod (0-Heavy); Bacteria Few /hpf; Mucus Heavy (0-Heavy); Squamous Epithelial Cells Rare /hpf (Few)
== END | disposition home or self-care (01) ==
LOC: LAB 16:35
PROVIDERS: Nurse Practitioner Family
DX: R31.29 Other microscopic hematuria (principal)
CPT/HCPCS: 81001; 87086

== ENCOUNTER → 2020-02-20 | Outpatient (CLI) | payer OTHER ==
[~2020-02-20] MED LIST changes: -ONDA4ODT SL
[2020-02-20 16:04] LABS: Protein, Urine Quantitative 19.7 mg/dL (0.0-11.9)
[2020-02-20 16:07] LABS: Microalbumin, Urine Quant. 9.38 mg/L (0.000-20.000)
== END | disposition home or self-care (01) ==
LOC: LAB SHORT 11:42 → OLS 11:42
PROVIDERS: Internal Medicine Nephrology
DX: N18.1 Chronic kidney disease, stage 1 (principal); D63.1 Anemia in chronic kidney disease; N25.81 Secondary hyperparathyroidism of renal origin; E55.9 Vitamin D deficiency, unspecified; E78.00 Pure hypercholesterolemia, unspecified; N40.1 Benign prostatic hyperplasia with lower urinary tract symptoms; R76.9 Abnormal immunological finding in serum, unspecified; R94.5 Abnormal results of liver function studies; R94.6 Abnormal results of thyroid function studies; D51.8 Other vitamin B12 deficiency anemias; D52.8 Other folate deficiency anemias; D50.9 Iron deficiency anemia, unspecified
CPT/HCPCS: 81050; 82043; 84133; 84156

== ENCOUNTER 2020-03-23 13:42 | Emergency (ER) | payer OTHER ==
[~2020-03-23] VITALS: Ht 170.2 cm; Wt 88.5 kg
[2020-03-23 14:13] LABS: BASOPHILS ABSOLUTE AUTO 0.03 K/mm3 (0.00-0.23); BASOPHILS PERCENT AUTO 0 % (0-2); EOSINOPHILS PERCENT AUTO 0 % (0-6); Hematocrit 48.1 % (37.0-53.0); Hemoglobin 16.2 g/dL (13.5-17.5); IMMATURE GRAN ABSOLUTE AUTO 0.06 K/mm3 (0.00-0.10); IMMATURE GRAN PERCENT AUTO 1 % (0-1); LYMPHOCYTES ABSOLUTE AUTO 1.01 K/mm3 (0.84-5.20); LYMPHOCYTES PERCENT AUTO 8 % (21-46); MONOCYTES ABSOLUTE AUTO 0.45 K/mm3 (0.16-1.47); MONOCYTES PERCENT AUTO 4 % (4-13); Mean Corpuscular HGB 29.8 pg (26.0-34.0); Mean Corpuscular HGB Conc 33.7 g/dL (31.5-36.5); Mean Corpuscular Volume 88 fL (80-100); Mean Platelet Volume 10.7 fL (9.1-12.4); NEUTROPHILS ABSOLUTE AUTO 11.48 K/mm3 (1.96-9.15); NEUTROPHILS PERCENT AUTO 88 % (41-73); Platelet Count 287 K/mm3 (150-400); RDW Coefficient Variation 12.8 % (11.7-14.2); RDW Standard Deviation 41.8 fL (35.1-46.3); Red Blood Cell Count 5.44 M/mm3 (4.30-5.90); White Blood Cell Count 13.03 K/mm3 (4.00-11.30)
[2020-03-23 14:43] LABS: Alanine Aminotransfer (ALT/SGP 24 U/L (12-78); Albumin, Blood 4.4 g/dL (3.4-5.0); Albumin/Globulin Ratio 1.2 (0.8-1.8); Alk Phos 71 U/L (50-136); Anion Gap 9 mmol/L (6-16); Aspartate Aminotrans (AST/SGOT 13 U/L (12-37); Bilirubin, Total 0.6 mg/dL (0.1-1.0); Blood Urea Nitrogen 21 mg/dL (8-24); Bun/Creatinine Ratio 27.5 (12.0-20.0); CO2, Blood 24 mmol/L (21-32); Calcium, Blood 9.5 mg/dL (8.5-10.1); Chloride, Blood 111 mmol/L (98-108); Creatinine, Blood 0.76 mg/dL (0.60-1.20); Globulin, Blood 3.7 g/dL (2.2-4.0); Glomerular Filtration Rate >60 (60-); Glucose, Blood 138 mg/dL (70-99); Potassium, Blood 3.6 mmol/L (3.5-5.5); Sodium, Blood 144 mmol/L (136-145); Total Protein, Blood 8.1 g/dL (6.4-8.2)
[2020-03-23] MEDS ORDERED: ONDA4ODT SL (16:25)
[2020-03-23] MEDS ORDERED: OMEPRAZOLE MAGN20 MG PO (16:25)
== END 2020-03-23 17:08 | disposition home or self-care (01) ==
LOC: ER 13:42
PROVIDERS: Physician Assistant
DX: R10.11 Right upper quadrant pain (principal); R11.2 Nausea with vomiting, unspecified; Z88.0 Allergy status to penicillin; Z88.5 Allergy status to narcotic agent; Z87.891 Personal history of nicotine dependence
CPT/HCPCS: 36415; 74018; 80053; 83690; 85025; 96361; 96374; 96375; 99284-25; J1170; J1200; J1630; J2405; J7120

== ENCOUNTER 2020-03-25 08:47 | Emergency (ER) | payer OTHER ==
[~2020-03-25] VITALS: Ht 170.2 cm; Wt 65.8 kg
[~2020-03-25 08:47] MED LIST changes: +ONDA4ODT SL
[2020-03-25 09:16] LABS: BASOPHILS ABSOLUTE AUTO 0.04 K/mm3 (0.00-0.23); BASOPHILS PERCENT AUTO 0 % (0-2); EOSINOPHILS ABSOLUTE AUTO 0.01 K/mm3 (0.00-0.68); EOSINOPHILS PERCENT AUTO 0 % (0-6); Hematocrit 48.7 % (37.0-53.0); Hemoglobin 16.6 g/dL (13.5-17.5); IMMATURE GRAN PERCENT AUTO 1 % (0-1); LYMPHOCYTES ABSOLUTE AUTO 1.89 K/mm3 (0.84-5.20); LYMPHOCYTES PERCENT AUTO 17 % (21-46); MONOCYTES ABSOLUTE AUTO 0.67 K/mm3 (0.16-1.47); MONOCYTES PERCENT AUTO 6 % (4-13); Mean Corpuscular HGB 30.4 pg (26.0-34.0); Mean Corpuscular HGB Conc 34.1 g/dL (31.5-36.5); Mean Corpuscular Volume 89 fL (80-100); Mean Platelet Volume 10.6 fL (9.1-12.4); NEUTROPHILS ABSOLUTE AUTO 8.41 K/mm3 (1.96-9.15); NEUTROPHILS PERCENT AUTO 76 % (41-73); Platelet Count 264 K/mm3 (150-400); RDW Standard Deviation 42.2 fL (35.1-46.3); Red Blood Cell Count 5.46 M/mm3 (4.30-5.90); White Blood Cell Count 11.12 K/mm3 (4.00-11.30)
[2020-03-25 09:39] LABS: Alanine Aminotransfer (ALT/SGP 28 U/L (12-78); Albumin, Blood 4.5 g/dL (3.4-5.0); Albumin/Globulin Ratio 1.3 (0.8-1.8); Alk Phos 65 U/L (50-136); Anion Gap 6 mmol/L (6-16); Aspartate Aminotrans (AST/SGOT 14 U/L (12-37); Bilirubin, Total 0.8 mg/dL (0.1-1.0); Blood Urea Nitrogen 24 mg/dL (8-24); Bun/Creatinine Ratio 28.1 (12.0-20.0); CO2, Blood 31 mmol/L (21-32); Calcium, Blood 9.2 mg/dL (8.5-10.1); Chloride, Blood 104 mmol/L (98-108); Creatinine, Blood 0.85 mg/dL (0.60-1.20); Globulin, Blood 3.4 g/dL (2.2-4.0); Glomerular Filtration Rate >60 (60-); Glucose, Blood 123 mg/dL (70-99); Potassium, Blood 3.6 mmol/L (3.5-5.5); Sodium, Blood 141 mmol/L (136-145); Total Protein, Blood 7.9 g/dL (6.4-8.2)
== END 2020-03-25 11:03 | disposition home or self-care (01) ==
LOC: ER 08:47
PROVIDERS: Emergency Medicine
DX: R11.2 Nausea with vomiting, unspecified (principal); R10.13 Epigastric pain; Z87.19 Personal history of other diseases of the digestive system; Z88.0 Allergy status to penicillin; Z88.5 Allergy status to narcotic agent
CPT/HCPCS: 76705; 80053; 83690; 85025; 96374; 96375; 99284-25; A9270; J1200; J1630; J7030

== ENCOUNTER 2021-08-21 16:23 | Emergency (ER) | payer OTHER ==
[~2021-08-21] VITALS: Ht 170.2 cm; Wt 59.0 kg
[2021-08-21 17:08] LABS: BASOPHILS ABSOLUTE AUTO 0.04 K/mm3 (0.00-0.23); BASOPHILS PERCENT AUTO 0 % (0-2); EOSINOPHILS ABSOLUTE AUTO 0.03 K/mm3 (0.00-0.68); EOSINOPHILS PERCENT AUTO 0 % (0-6); Hematocrit 45.1 % (37.0-53.0); Hemoglobin 15.4 g/dL (13.5-17.5); IMMATURE GRAN ABSOLUTE AUTO 0.07 K/mm3 (0.00-0.10); IMMATURE GRAN PERCENT AUTO 1 % (0-1); LYMPHOCYTES ABSOLUTE AUTO 1.88 K/mm3 (0.84-5.20); LYMPHOCYTES PERCENT AUTO 14 % (21-46); MONOCYTES ABSOLUTE AUTO 0.77 K/mm3 (0.16-1.47); MONOCYTES PERCENT AUTO 6 % (4-13); Mean Corpuscular HGB 30.1 pg (26.0-34.0); Mean Corpuscular HGB Conc 34.1 g/dL (31.5-36.5); Mean Corpuscular Volume 88 fL (80-100); Mean Platelet Volume 10.4 fL (9.1-12.4); NEUTROPHILS ABSOLUTE AUTO 10.39 K/mm3 (1.96-9.15); NEUTROPHILS PERCENT AUTO 79 % (41-73); Platelet Count 276 K/mm3 (150-400); RDW Coefficient Variation 12.8 % (11.7-14.2); RDW Standard Deviation 41.6 fL (35.1-46.3); Red Blood Cell Count 5.12 M/mm3 (4.30-5.90); White Blood Cell Count 13.18 K/mm3 (4.00-11.30)
[2021-08-21 18:08] LABS: Albumin, Blood 4.3 g/dL (3.4-5.0); Albumin/Globulin Ratio 1.3 (0.8-1.8); Bilirubin, Total 0.6 mg/dL (0.1-1.0); Bun/Creatinine Ratio 19.3 (12.0-20.0); Calcium, Blood 9.4 mg/dL (8.5-10.1); Creatinine, Blood 0.83 mg/dL (0.60-1.20); Globulin, Blood 3.3 g/dL (2.2-4.0); Potassium, Blood 3.7 mmol/L (3.5-5.5); Total Protein, Blood 7.6 g/dL (6.4-8.2)
[2021-08-22] MEDS ORDERED: ONDA4ODT MM (01:33)
[2021-08-22] MEDS ORDERED: PROM12.5S PR (01:33)
== END 2021-08-22 01:40 | disposition home or self-care (01) ==
LOC: ER 16:23
PROVIDERS: Physician Assistant
DX: R11.2 Nausea with vomiting, unspecified (principal); R10.13 Epigastric pain; D72.829 Elevated white blood cell count, unspecified; I10 Essential (primary) hypertension; Z87.19 Personal history of other diseases of the digestive system; Z88.0 Allergy status to penicillin; Z88.5 Allergy status to narcotic agent
CPT/HCPCS: 36415; 74176; 80053; 83690; 85025; 96361; 96374; 96375; 99284-25; A9270; J1790; J1885; J2405; J7030

== ENCOUNTER 2021-09-07 19:42 | Emergency (ER) | payer OTHER ==
[~2021-09-07] VITALS: Ht 170.2 cm; Wt 61.2 kg
[~2021-09-07 19:42] MED LIST changes: +PROM12.5S PR
[2021-09-07 20:21] LABS: BASOPHILS ABSOLUTE AUTO 0.02 K/mm3 (0.00-0.23); BASOPHILS PERCENT AUTO 0 % (0-2); EOSINOPHILS PERCENT AUTO 0 % (0-6); Hematocrit 46.9 % (37.0-53.0); Hemoglobin 16.2 g/dL (13.5-17.5); IMMATURE GRAN ABSOLUTE AUTO 0.02 K/mm3 (0.00-0.10); IMMATURE GRAN PERCENT AUTO 0 % (0-1); LYMPHOCYTES ABSOLUTE AUTO 0.65 K/mm3 (0.84-5.20); LYMPHOCYTES PERCENT AUTO 9 % (21-46); MONOCYTES ABSOLUTE AUTO 0.38 K/mm3 (0.16-1.47); MONOCYTES PERCENT AUTO 5 % (4-13); Mean Corpuscular HGB 29.8 pg (26.0-34.0); Mean Corpuscular HGB Conc 34.5 g/dL (31.5-36.5); Mean Corpuscular Volume 86 fL (80-100); Mean Platelet Volume 10.9 fL (9.1-12.4); NEUTROPHILS PERCENT AUTO 86 % (41-73); Platelet Count 210 K/mm3 (150-400); RDW Coefficient Variation 13.2 % (11.7-14.2); Red Blood Cell Count 5.44 M/mm3 (4.30-5.90); White Blood Cell Count 7.67 K/mm3 (4.00-11.30)
[2021-09-07 20:42] LABS: Albumin, Blood 4.5 g/dL (3.4-5.0); Albumin/Globulin Ratio 1.3 (0.8-1.8); Bilirubin, Total 0.4 mg/dL (0.1-1.0); Bun/Creatinine Ratio 21.5 (12.0-20.0); Creatinine, Blood 0.84 mg/dL (0.60-1.20); Globulin, Blood 3.5 g/dL (2.2-4.0); Potassium, Blood 3.6 mmol/L (3.5-5.5)
[2021-09-07] MEDS ORDERED: PROM12.5S PR (22:38)
[2021-09-09] MEDS ORDERED: PROC5 PO (15:54)
== END 2021-09-07 23:00 | disposition home or self-care (01) ==
LOC: ER 19:42
PROVIDERS: Physician Assistant
DX: R11.15 Cyclical vomiting syndrome unrelated to migraine (principal); I10 Essential (primary) hypertension; Z88.5 Allergy status to narcotic agent; Z88.0 Allergy status to penicillin; Z79.899 Other long term (current) drug therapy
CPT/HCPCS: 36415; 80053; 83690; 85025; 96374; 96375; 99284-25; J1200; J1630; J1885; J2405; J2550; J7030

== ENCOUNTER 2021-09-11 10:50 | Emergency (ER) | payer OTHER ==
[~2021-09-11] VITALS: Ht 170.2 cm; Wt 61.2 kg
[~2021-09-11 10:50] MED LIST changes: +PROC5 PO
[2021-09-11 11:34] LABS: BASOPHILS ABSOLUTE AUTO 0.04 K/mm3 (0.00-0.23); BASOPHILS PERCENT AUTO 0 % (0-2); EOSINOPHILS ABSOLUTE AUTO 0.02 K/mm3 (0.00-0.68); EOSINOPHILS PERCENT AUTO 0 % (0-6); Hematocrit 46.8 % (37.0-53.0); Hemoglobin 16.1 g/dL (13.5-17.5); IMMATURE GRAN ABSOLUTE AUTO 0.06 K/mm3 (0.00-0.10); IMMATURE GRAN PERCENT AUTO 1 % (0-1); LYMPHOCYTES ABSOLUTE AUTO 2.55 K/mm3 (0.84-5.20); LYMPHOCYTES PERCENT AUTO 23 % (21-46); MONOCYTES ABSOLUTE AUTO 0.69 K/mm3 (0.16-1.47); MONOCYTES PERCENT AUTO 6 % (4-13); Mean Corpuscular HGB 30.1 pg (26.0-34.0); Mean Corpuscular HGB Conc 34.4 g/dL (31.5-36.5); Mean Corpuscular Volume 88 fL (80-100); Mean Platelet Volume 11.1 fL (9.1-12.4); NEUTROPHILS ABSOLUTE AUTO 7.95 K/mm3 (1.96-9.15); NEUTROPHILS PERCENT AUTO 70 % (41-73); Platelet Count 239 K/mm3 (150-400); RDW Coefficient Variation 12.5 % (11.7-14.2); RDW Standard Deviation 40.2 fL (35.1-46.3); Red Blood Cell Count 5.34 M/mm3 (4.30-5.90); White Blood Cell Count 11.31 K/mm3 (4.00-11.30)
[2021-09-11 11:46] LABS: Albumin, Blood 4.4 g/dL (3.4-5.0); Albumin/Globulin Ratio 1.4 (0.8-1.8); Bilirubin, Total 1.1 mg/dL (0.1-1.0); Bun/Creatinine Ratio 20.3 (12.0-20.0); Calcium, Blood 9.5 mg/dL (8.5-10.1); Creatinine, Blood 0.94 mg/dL (0.60-1.20); Globulin, Blood 3.2 g/dL (2.2-4.0); Potassium, Blood 3.7 mmol/L (3.5-5.5); Total Protein, Blood 7.6 g/dL (6.4-8.2)
== END 2021-09-11 16:46 | disposition home or self-care (01) ==
LOC: ER 10:50
PROVIDERS: Physician Assistant
DX: R11.2 Nausea with vomiting, unspecified (principal); F12.10 Cannabis abuse, uncomplicated; Z87.891 Personal history of nicotine dependence
CPT/HCPCS: 36415; 80053; 83690; 85025; J1200; J1630; J2405; J2550; J7030

== ENCOUNTER 2022-01-02 10:36 | Observation (INO) | payer OTHER ==
[~2022-01-02] VITALS: Ht 170.2 cm; Wt 62.0 kg
[~2022-01-02 10:36] MED LIST changes: +POTA20PAC PO
[2022-01-02 11:27] LABS: BASOPHILS ABSOLUTE AUTO 0.04 K/mm3 (0.00-0.23); BASOPHILS PERCENT AUTO 0 % (0-2); EOSINOPHILS ABSOLUTE AUTO 0.02 K/mm3 (0.00-0.68); EOSINOPHILS PERCENT AUTO 0 % (0-6); Hemoglobin 17.7 g/dL (13.5-17.5); IMMATURE GRAN ABSOLUTE AUTO 0.16 K/mm3 (0.00-0.10); IMMATURE GRAN PERCENT AUTO 1 % (0-1); LYMPHOCYTES ABSOLUTE AUTO 3.24 K/mm3 (0.84-5.20); LYMPHOCYTES PERCENT AUTO 21 % (21-46); MONOCYTES ABSOLUTE AUTO 1.97 K/mm3 (0.16-1.47); MONOCYTES PERCENT AUTO 13 % (4-13); Mean Corpuscular HGB 30.6 pg (26.0-34.0); Mean Corpuscular HGB Conc 36.9 g/dL (31.5-36.5); Mean Corpuscular Volume 83 fL (80-100); Mean Platelet Volume 11.2 fL (9.1-12.4); NEUTROPHILS ABSOLUTE AUTO 10.38 K/mm3 (1.96-9.15); NEUTROPHILS PERCENT AUTO 66 % (41-73); Platelet Count 260 K/mm3 (150-400); RDW Coefficient Variation 12.3 % (11.7-14.2); RDW Standard Deviation 37.2 fL (35.1-46.3); Red Blood Cell Count 5.78 M/mm3 (4.30-5.90); White Blood Cell Count 15.81 K/mm3 (4.00-11.30)
[2022-01-02 11:54] LABS: Albumin, Blood 4.4 g/dL (3.4-5.0); Albumin/Globulin Ratio 1.3 (0.8-1.8); Bilirubin, Total 2.1 mg/dL (0.1-1.0); Bun/Creatinine Ratio 21.3 (12.0-20.0); Calcium, Blood 9.7 mg/dL (8.5-10.1); Creatinine, Blood 1.69 mg/dL (0.60-1.20); Globulin, Blood 3.4 g/dL (2.2-4.0); Potassium, Blood 2.3 mmol/L (3.5-5.5); Total Protein, Blood 7.8 g/dL (6.4-8.2)
[2022-01-02 13:28] LABS: Source, Urine Clean Catch
[2022-01-02 13:50] LABS: Appearance, Urine Clear (Clear); Bilirubin, Urine Neg (Neg); Blood, Urine 4+ (Neg); Color, Urine Amber (P-Yellow); Glucose Qualitative, Urine Neg (Neg); Ketones, Urine 3+ (Neg); Leukocyte Esterase, Urine 1+ (Neg); Nitrite, Urine Neg (Neg); Protein, Urine 2+ (Neg); Urobilinogen, Urine NORM (Normal)
[2022-01-02 14:04] LABS: Bacteria Few /hpf; Squamous Epithelial Cells Not Seen /hpf (Few); White Blood Cells, Urine 0-2 /hpf (0-5)
--- NOTE | 2022-01-02 18:19 | NUR ---
PT ARRIVED AT 1800 VIA CART. NO DISTRESS NOTED AND AOX4. PT SETTLED INTO ROOM AND CALL LIGHT PUT WITHIN REACH. WILL CONTINUE TO MONITOR.
[2022-01-02 18:30] LABS: U Amphetamine Screen Not Detected; U Barbituate Screen Not Detected; U Benzodiazapine Screen Not Detected; U Cannabinoids Screen DETECTED; U Cocaine Screen Not Detected; U Methadone Screen Not Detected; U Methamphetamine Screen Not Detected; U Opiates Screen Not Detected; U Phencyclidine Screen Not Detected
[2022-01-02 18:31] LABS: U Buprenorphine Screen Not Detected; U Oxycodone Screen Not Detected; U Propoxyphene Screen Not Detected
--- NOTE | 2022-01-02 20:15 | NUR ---
CALL PLACED TO DR. FINE - REVIEWED VS - NO NEW ORDERS WITH ELEVATED BP. RECEIVED ORDER FOR COMPAZINE, BLADDER SCAN IF NEEDED.
--- NOTE | 2022-01-02 20:30 | NUR ---
PT REPORTS HE IS HOMELESS, LIVES WITH HIS GIRLFRIEND - PT RELAYS THEY ARE IN THE PROCESS OF GETTING A MOTOR HOME. PT REPORTS USE OF THC, 3X A WEEK APPX - "HELPS HIM GET TO SLEEP." PT HAS OCCASIONAL SCANT AMOUNT OF EMESIS - WILL GET ORDER FOR NAUSEA MEDICATION - NOT ZOFRAN PT'S QT IS PROLONGED. PT HAS TELE IN PLACE - SINUS TACH. PT DENIES ANY CHEST PAIN, JAW PAIN, SHOULDER PAIN, OR SOB. PT'S ONLY COMPLAINT IS NAUSEA, FEELING COLD, AND BURNING WITH URINATION. REVIEWED CALL LIGHT WITH PT. FLUIDS AT BEDSIDE. IV INFUSING TO LEFT HAND IV SITE WITHOUT COMPLICATIONS.
[2022-01-03 05:57] LABS: Hematocrit 42.1 % (37.0-53.0); Hemoglobin 14.6 g/dL (13.5-17.5); Mean Corpuscular HGB 30.8 pg (26.0-34.0); Mean Corpuscular HGB Conc 34.7 g/dL (31.5-36.5); Mean Platelet Volume 11.5 fL (9.1-12.4); Platelet Count 197 K/mm3 (150-400); RDW Coefficient Variation 12.5 % (11.7-14.2); RDW Standard Deviation 41.2 fL (35.1-46.3); Red Blood Cell Count 4.74 M/mm3 (4.30-5.90); White Blood Cell Count 9.91 K/mm3 (4.00-11.30)
[2022-01-03 06:04] LABS: Mean Corpuscular Volume 89 fL (80-100)
[2022-01-03 06:44] LABS: Bun/Creatinine Ratio 17.3 (12.0-20.0); Creatinine, Blood 1.33 mg/dL (0.60-1.20); Potassium, Blood 3.1 mmol/L (3.5-5.5)
--- NOTE | 2022-01-03 06:51 | NUR ---
SHIFT SUMMARY - PT HAD SMALL AMOUNT OF YELLOW EMESIS - APPX 100 CC. PT MEDICATED WITH COMPAZINE WITH GOOD RELIEF, AND THEN ATIVAN X1 WITH RESULT OF SLEEP. PT HAD MULTIPLE BLANKETS ON, PER PT REQUEST. PT WAS SWEATING AND FRAME WELDER [employer]GO UTILITY TRAILERS ASSISTED WITH BED BATH, LINEN CHANGE THIS AM. AFEBRILE. IV FLUIDS CONTINUE INFUSING AT 200 CC HOUR - SEE EMAR. WILL CONTINUE TO MONITOR UNTIL AM SHIFT CHANGE. CALL LIGHT WITHIN REACH. BED IN LOW POSITION. MINIMAL SWELLING/REDNESS TO GROIN AREA.
--- NOTE | 2022-01-03 18:20 | NUR ---
SHIFT SUMMARY- VSS. PT ON RA. PT VOMITED X3, MEDICATED PER EMAR. INDEPENDANT IN ROOM. NS RUNNING AT 200 HR. PT ASLEEP MOST OF SHIFT. D/C- PT EDUCATED PER PAPERWORK. SENT HOME ALL BELONGINGS AND PAPERWORK WITH PT. IV D/C. TELE D/C. WHEEL CHAIR TO AUTOMOBILE WITH FAMILY MEMBER.
--- NOTE | 2022-01-04 15:49 | NUR ---
POTASSIUM PRESCRIPTION DR. HINOJOSA GAVE A VERBAL ORDER TO CHANGE THE DISCHARGE PRESCRIPTION FROM POTASSIUM 20 MEQ PACKET DAILY TO POTASSIUM 20 MEQ TAB PO DAILY, DISPENSE 30 TABS AND NO REFILLS. THIS RN CALLED THE PRESCRIPTION INTO [facility].
== END 2022-01-03 17:25 | disposition home or self-care (01) ==
LOC: ER 10:36 → MEDS 10:37 → ERHOLD 10:37 → MEDS 18:09
PROVIDERS: Nurse Practitioner Acute Care; Physician Assistant; ADMIT Internal Medicine
DX: E87.6 Hypokalemia (principal); N17.9 Acute kidney failure, unspecified; I10 Essential (primary) hypertension; R94.31 Abnormal electrocardiogram [ECG] [EKG]; E86.0 Dehydration; K21.9 Gastro-esophageal reflux disease without esophagitis; N50.89 Other specified disorders of the male genital organs; D72.829 Elevated white blood cell count, unspecified; Z87.11 Personal history of peptic ulcer disease; Z88.0 Allergy status to penicillin; Z88.5 Allergy status to narcotic agent; Z86.718 Personal history of other venous thrombosis and embolism
CPT/HCPCS: 36415; 74177; 76870; 80048; 80053; 81001; 82550; 83690; 83735; 84484; 85025; 85027; 87086; 93005; 93010; 96366; 96372; 96375; 96376; A9270; G0378; J0780; J1200; J1644; J2060; J2405; J3010; J3480; J7030; J7050; Q9967

== ENCOUNTER → 2022-01-23 | Outpatient (CLI) | payer OTHER ==
[2022-01-23 10:22] LABS: BASOPHILS ABSOLUTE AUTO 0.04 K/mm3 (0.00-0.23); BASOPHILS PERCENT AUTO 0 % (0-2); EOSINOPHILS ABSOLUTE AUTO 0.03 K/mm3 (0.00-0.68); EOSINOPHILS PERCENT AUTO 0 % (0-6); Hematocrit 47.9 % (37.0-53.0); IMMATURE GRAN ABSOLUTE AUTO 0.07 K/mm3 (0.00-0.10); IMMATURE GRAN PERCENT AUTO 1 % (0-1); LYMPHOCYTES PERCENT AUTO 17 % (21-46); MONOCYTES ABSOLUTE AUTO 0.82 K/mm3 (0.16-1.47); MONOCYTES PERCENT AUTO 7 % (4-13); Mean Corpuscular HGB 30.1 pg (26.0-34.0); Mean Corpuscular HGB Conc 33.4 g/dL (31.5-36.5); Mean Corpuscular Volume 90 fL (80-100); Mean Platelet Volume 10.5 fL (9.1-12.4); NEUTROPHILS PERCENT AUTO 75 % (41-73); Platelet Count 284 K/mm3 (150-400); RDW Standard Deviation 42.6 fL (35.1-46.3); Red Blood Cell Count 5.31 M/mm3 (4.30-5.90); White Blood Cell Count 11.96 K/mm3 (4.00-11.30)
[2022-01-23 10:33] LABS: Albumin, Blood 4.6 g/dL (3.4-5.0); Albumin/Globulin Ratio 1.4 (0.8-1.8); Bilirubin, Total 0.4 mg/dL (0.1-1.0); Bun/Creatinine Ratio 14.2 (12.0-20.0); Calcium, Blood 9.7 mg/dL (8.5-10.1); Creatinine, Blood 1.06 mg/dL (0.60-1.20); Globulin, Blood 3.4 g/dL (2.2-4.0); Potassium, Blood 3.9 mmol/L (3.5-5.5)
== END | disposition home or self-care (01) ==
LOC: LAB 10:17 → LAB SHORT 10:17
PROVIDERS: Physician Assistant
DX: R10.9 Unspecified abdominal pain (principal)
CPT/HCPCS: 80053; 83690; 85025

== ENCOUNTER 2022-01-25 08:09 | Emergency (ER) | payer OTHER ==
[~2022-01-25] VITALS: Ht 172.7 cm; Wt 61.2 kg
[2022-01-25 08:54] LABS: BASOPHILS ABSOLUTE AUTO 0.06 K/mm3 (0.00-0.23); BASOPHILS PERCENT AUTO 0 % (0-2); EOSINOPHILS ABSOLUTE AUTO 0.01 K/mm3 (0.00-0.68); EOSINOPHILS PERCENT AUTO 0 % (0-6); Hemoglobin 18.1 g/dL (13.5-17.5); IMMATURE GRAN ABSOLUTE AUTO 0.17 K/mm3 (0.00-0.10); IMMATURE GRAN PERCENT AUTO 1 % (0-1); LYMPHOCYTES ABSOLUTE AUTO 2.19 K/mm3 (0.84-5.20); LYMPHOCYTES PERCENT AUTO 15 % (21-46); MONOCYTES ABSOLUTE AUTO 1.38 K/mm3 (0.16-1.47); MONOCYTES PERCENT AUTO 9 % (4-13); Mean Corpuscular HGB 30.3 pg (26.0-34.0); Mean Corpuscular HGB Conc 35.5 g/dL (31.5-36.5); Mean Platelet Volume 10.7 fL (9.1-12.4); NEUTROPHILS ABSOLUTE AUTO 11.05 K/mm3 (1.96-9.15); NEUTROPHILS PERCENT AUTO 74 % (41-73); Platelet Count 360 K/mm3 (150-400); RDW Standard Deviation 40.2 fL (35.1-46.3); Red Blood Cell Count 5.98 M/mm3 (4.30-5.90); White Blood Cell Count 14.86 K/mm3 (4.00-11.30)
[2022-01-25 08:56] LABS: Mean Corpuscular Volume 85 fL (80-100)
[2022-01-25 09:11] LABS: Albumin, Blood 5.1 g/dL (3.4-5.0); Albumin/Globulin Ratio 1.2 (0.8-1.8); Bilirubin, Total 0.9 mg/dL (0.1-1.0); Bun/Creatinine Ratio 14.3 (12.0-20.0); Calcium, Blood 11.1 mg/dL (8.5-10.1); Creatinine, Blood 1.82 mg/dL (0.60-1.20); Globulin, Blood 4.1 g/dL (2.2-4.0); Potassium, Blood 3.7 mmol/L (3.5-5.5); Total Protein, Blood 9.2 g/dL (6.4-8.2)
[2022-01-25 10:35] LABS: Influenza A, PCR NEGATIVE (NEGATIVE); Influenza B, PCR NEGATIVE (NEGATIVE); Resp Syncytial Virus, PCR NEGATIVE (NEGATIVE); SARS-Cov-2 (COVID-19) PCR, MMC NEGATIVE (NEGATIVE)
[2022-01-25] MEDS ORDERED: ONDA4ODT MM (12:28)
[2022-01-25 13:02] LABS: Source, Urine Clean Catch
[2022-01-25 13:04] LABS: Bilirubin, Urine Neg (Neg); Blood, Urine 3+ (Neg); Glucose Qualitative, Urine Neg (Neg); Ketones, Urine 4+ (Neg); Leukocyte Esterase, Urine 1+ (Neg); Nitrite, Urine Neg (Neg); Protein, Urine 3+ (Neg); Urobilinogen, Urine 2+ (Normal)
[2022-01-25 13:14] LABS: Appearance, Urine Hazy (Clear); Bacteria Rare /hpf; Color, Urine Yellow (P-Yellow); Squamous Epithelial Cells Few /hpf (Few)
[2022-01-25 14:06] LABS: U Amphetamine Screen Not Detected; U Barbituate Screen Not Detected; U Benzodiazapine Screen Not Detected; U Buprenorphine Screen Not Detected; U Cannabinoids Screen DETECTED; U Cocaine Screen Not Detected; U Methadone Screen Not Detected; U Methamphetamine Screen Not Detected; U Opiates Screen DETECTED; U Oxycodone Screen Not Detected; U Phencyclidine Screen Not Detected; U Propoxyphene Screen Not Detected
== END 2022-01-25 15:05 | disposition home or self-care (01) ==
LOC: ER 08:09
PROVIDERS: Physician Assistant
DX: F12.90 Cannabis use, unspecified, uncomplicated (principal); A08.4 Viral intestinal infection, unspecified; R11.2 Nausea with vomiting, unspecified; I11.0 Hypertensive heart disease with heart failure; I50.9 Heart failure, unspecified; Z88.0 Allergy status to penicillin; Z88.5 Allergy status to narcotic agent; Z20.822 Contact with and (suspected) exposure to COVID-19
CPT/HCPCS: 0241U; 36415; 74177; 80053; 81001; 83690; 85025; 87086; 96361; 96374-59; 96375; 99285-25; J1170; J1790; J2405; J2550; J7030; Q9967

== ENCOUNTER 2022-01-27 08:43 | Emergency (ER) | payer OTHER ==
[~2022-01-27] VITALS: Ht 170.2 cm; Wt 61.2 kg
[2022-01-27 09:45] LABS: BASOPHILS ABSOLUTE AUTO 0.03 K/mm3 (0.00-0.23); BASOPHILS PERCENT AUTO 0 % (0-2); EOSINOPHILS PERCENT AUTO 0 % (0-6); Hematocrit 40.4 % (37.0-53.0); Hemoglobin 14.5 g/dL (13.5-17.5); IMMATURE GRAN ABSOLUTE AUTO 0.03 K/mm3 (0.00-0.10); IMMATURE GRAN PERCENT AUTO 0 % (0-1); LYMPHOCYTES ABSOLUTE AUTO 1.48 K/mm3 (0.84-5.20); LYMPHOCYTES PERCENT AUTO 17 % (21-46); MONOCYTES ABSOLUTE AUTO 0.78 K/mm3 (0.16-1.47); MONOCYTES PERCENT AUTO 9 % (4-13); Mean Corpuscular HGB 30.4 pg (26.0-34.0); Mean Corpuscular HGB Conc 35.9 g/dL (31.5-36.5); Mean Corpuscular Volume 85 fL (80-100); Mean Platelet Volume 10.7 fL (9.1-12.4); NEUTROPHILS ABSOLUTE AUTO 6.22 K/mm3 (1.96-9.15); NEUTROPHILS PERCENT AUTO 73 % (41-73); Platelet Count 240 K/mm3 (150-400); RDW Coefficient Variation 12.5 % (11.7-14.2); RDW Standard Deviation 38.2 fL (35.1-46.3); Red Blood Cell Count 4.77 M/mm3 (4.30-5.90); White Blood Cell Count 8.54 K/mm3 (4.00-11.30)
[2022-01-27 09:48] LABS: Albumin/Globulin Ratio 1.4 (0.8-1.8); Bilirubin, Total 0.9 mg/dL (0.1-1.0); Bun/Creatinine Ratio 13.5 (12.0-20.0); Creatinine, Blood 0.96 mg/dL (0.60-1.20); Globulin, Blood 2.9 g/dL (2.2-4.0); Potassium, Blood 2.8 mmol/L (3.5-5.5); Total Protein, Blood 6.9 g/dL (6.4-8.2)
[2022-01-27 10:49] LABS: Source, Urine Clean Catch
[2022-01-27 11:10] LABS: Appearance, Urine Clear (Clear); Bilirubin, Urine Neg (Neg); Blood, Urine Neg (Neg); Color, Urine Yellow (P-Yellow); Glucose Qualitative, Urine Neg (Neg); Ketones, Urine Neg (Neg); Leukocyte Esterase, Urine Neg (Neg); Nitrite, Urine Neg (Neg); Protein, Urine Neg (Neg); Urobilinogen, Urine NORM (Normal)
[2022-01-27 11:29] LABS: Influenza A, PCR NEGATIVE (NEGATIVE); Influenza B, PCR NEGATIVE (NEGATIVE); Resp Syncytial Virus, PCR NEGATIVE (NEGATIVE); SARS-Cov-2 (COVID-19) PCR, MMC NEGATIVE (NEGATIVE)
[2022-01-28 23:07] LABS: CHLAMYDIA TRACHOMATIS, NAA Negative (Negative)
== END 2022-01-27 14:48 | disposition short-term general hospital (02) ==
LOC: ER 08:43
PROVIDERS: Student in an Organized Health Care Education/Training Program
DX: N50.811 Right testicular pain (principal); I10 Essential (primary) hypertension; Z20.822 Contact with and (suspected) exposure to COVID-19; Z88.0 Allergy status to penicillin; Z88.5 Allergy status to narcotic agent
CPT/HCPCS: 0241U; 36415; 76870; 80053; 81003; 85025; 86850; 86900; 86901; 87491; 87591; 93005; 93010; A9270; J1170; J2405; J3480; J7030

== ENCOUNTER 2022-03-23 11:14 | Emergency (ER) | payer OTHER ==
[~2022-03-23] VITALS: Ht 170.2 cm; Wt 61.2 kg
[2022-03-23 12:03] LABS: BASOPHILS ABSOLUTE AUTO 0.04 K/mm3 (0.00-0.23); BASOPHILS PERCENT AUTO 0 % (0-2); EOSINOPHILS ABSOLUTE AUTO 0.05 K/mm3 (0.00-0.68); EOSINOPHILS PERCENT AUTO 0 % (0-6); Hematocrit 44.2 % (37.0-53.0); Hemoglobin 15.4 g/dL (13.5-17.5); IMMATURE GRAN ABSOLUTE AUTO 0.07 K/mm3 (0.00-0.10); IMMATURE GRAN PERCENT AUTO 1 % (0-1); LYMPHOCYTES ABSOLUTE AUTO 2.44 K/mm3 (0.84-5.20); LYMPHOCYTES PERCENT AUTO 21 % (21-46); MONOCYTES ABSOLUTE AUTO 0.86 K/mm3 (0.16-1.47); MONOCYTES PERCENT AUTO 7 % (4-13); Mean Corpuscular HGB 30.3 pg (26.0-34.0); Mean Corpuscular HGB Conc 34.8 g/dL (31.5-36.5); Mean Corpuscular Volume 87 fL (80-100); Mean Platelet Volume 11.2 fL (9.1-12.4); NEUTROPHILS ABSOLUTE AUTO 8.09 K/mm3 (1.96-9.15); NEUTROPHILS PERCENT AUTO 70 % (41-73); Platelet Count 287 K/mm3 (150-400); RDW Coefficient Variation 12.6 % (11.7-14.2); Red Blood Cell Count 5.09 M/mm3 (4.30-5.90); White Blood Cell Count 11.55 K/mm3 (4.00-11.30)
[2022-03-23 12:23] LABS: Albumin, Blood 4.3 g/dL (3.4-5.0); Albumin/Globulin Ratio 1.3 (0.8-1.8); Bilirubin, Total 1.1 mg/dL (0.1-1.0); Bun/Creatinine Ratio 11.6 (12.0-20.0); Calcium, Blood 9.6 mg/dL (8.5-10.1); Creatinine, Blood 1.12 mg/dL (0.60-1.20); Globulin, Blood 3.4 g/dL (2.2-4.0); Total Protein, Blood 7.7 g/dL (6.4-8.2)
[2022-03-23 14:19] LABS: Source, Urine Clean Catch
[2022-03-23 14:33] LABS: Bilirubin, Urine Neg (Neg); Blood, Urine 2+ (Neg); Color, Urine Yellow (P-Yellow); Glucose Qualitative, Urine Neg (Neg); Ketones, Urine 1+ (Neg); Leukocyte Esterase, Urine Neg (Neg); Nitrite, Urine Neg (Neg); Protein, Urine 2+ (Neg); Specific Gravity, Urine 1.015 (1.003-1.022); Urobilinogen, Urine 1+ (Normal)
[2022-03-23 16:01] LABS: Appearance, Urine Hazy (Clear)
[2022-03-23 16:02] LABS: Amorphous Light (0-Heavy); Bacteria Few /hpf; Calcium Oxalate Crystals Many /hpf; Mucus Light (0-Heavy); Red Blood Cells, Urine 0-2 /hpf (0-2); Squamous Epithelial Cells Rare /hpf (Few); White Blood Cells, Urine 0-2 /hpf (0-5)
[2022-03-23] MEDS ORDERED: Cipro500 MG PO (16:16)
[2022-03-23] MEDS ORDERED: PHENERGAN25 MG PR (16:16)
[2022-03-23] MEDS ORDERED: DICY20 PO (16:16)
== END 2022-03-23 17:18 | disposition home or self-care (01) ==
LOC: ER 11:14
PROVIDERS: Physician Assistant
DX: K52.9 Noninfective gastroenteritis and colitis, unspecified (principal); I10 Essential (primary) hypertension; Z88.5 Allergy status to narcotic agent; Z88.0 Allergy status to penicillin; Z87.891 Personal history of nicotine dependence
CPT/HCPCS: 36415; 74177; 80053; 81001; 83690; 85025; A9270; J1790; J1885; J2405; Q9967

== ENCOUNTER 2022-03-27 09:30 | Emergency (ER) | payer OTHER ==
[~2022-03-27] VITALS: Ht 170.2 cm; Wt 61.2 kg
[~2022-03-27 09:30] MED LIST changes: +Cipro500 MG PO; +DICY20 PO; +PHENERGAN25 MG PR
[2022-03-27 10:20] LABS: BASOPHILS ABSOLUTE AUTO 0.06 K/mm3 (0.00-0.23); BASOPHILS PERCENT AUTO 1 % (0-2); EOSINOPHILS ABSOLUTE AUTO 0.01 K/mm3 (0.00-0.68); EOSINOPHILS PERCENT AUTO 0 % (0-6); Hematocrit 46.2 % (37.0-53.0); Hemoglobin 16.9 g/dL (13.5-17.5); IMMATURE GRAN ABSOLUTE AUTO 0.17 K/mm3 (0.00-0.10); IMMATURE GRAN PERCENT AUTO 1 % (0-1); LYMPHOCYTES ABSOLUTE AUTO 2.43 K/mm3 (0.84-5.20); LYMPHOCYTES PERCENT AUTO 19 % (21-46); MONOCYTES ABSOLUTE AUTO 1.34 K/mm3 (0.16-1.47); MONOCYTES PERCENT AUTO 11 % (4-13); Mean Corpuscular HGB 30.7 pg (26.0-34.0); Mean Corpuscular HGB Conc 36.6 g/dL (31.5-36.5); Mean Corpuscular Volume 84 fL (80-100); Mean Platelet Volume 10.7 fL (9.1-12.4); NEUTROPHILS ABSOLUTE AUTO 8.78 K/mm3 (1.96-9.15); NEUTROPHILS PERCENT AUTO 69 % (41-73); NRBC ABSOLUTE 0.04 K/mm3 (0.00-0.02); NRBC Auto 0.3 /100 WBC (0.0-0.2); Platelet Count 328 K/mm3 (150-400); RDW Coefficient Variation 12.7 % (11.7-14.2); RDW Standard Deviation 38.6 fL (35.1-46.3); Red Blood Cell Count 5.51 M/mm3 (4.30-5.90); White Blood Cell Count 12.79 K/mm3 (4.00-11.30)
[2022-03-27 10:40] LABS: Albumin, Blood 4.4 g/dL (3.4-5.0); Albumin/Globulin Ratio 1.3 (0.8-1.8); Bilirubin, Total 0.8 mg/dL (0.1-1.0); Bun/Creatinine Ratio 12.1 (12.0-20.0); Calcium, Blood 9.7 mg/dL (8.5-10.1); Creatinine, Blood 1.49 mg/dL (0.60-1.20); Globulin, Blood 3.3 g/dL (2.2-4.0); Potassium, Blood 3.5 mmol/L (3.5-5.5); Total Protein, Blood 7.7 g/dL (6.4-8.2)
[2022-03-27 11:43] LABS: Source, Urine Clean Catch
[2022-03-27 11:53] LABS: Appearance, Urine Hazy (Clear); Bilirubin, Urine Neg (Neg); Blood, Urine Neg (Neg); Color, Urine Amber (P-Yellow); Glucose Qualitative, Urine Neg (Neg); Ketones, Urine 1+ (Neg); Leukocyte Esterase, Urine Neg (Neg); Nitrite, Urine Neg (Neg); Protein, Urine 3+ (Neg); Urobilinogen, Urine 1+ (Normal)
[2022-03-27 12:15] LABS: Mucus Heavy (0-Heavy); Red Blood Cells, Urine 0-2 /hpf (0-2); Squamous Epithelial Cells Not Seen /hpf (Few); White Blood Cells, Urine 0-2 /hpf (0-5)
[2022-03-27 12:16] LABS: Amorphous Light (0-Heavy); Bacteria Few /hpf; Calcium Oxalate Crystals Few /hpf; Transitional Epithelial Cells Rare /hpf (0-Rare)
[2022-03-27] MEDS ORDERED: CIPR500 PO (14:25)
[2022-03-27] MEDS ORDERED: METR500 PO (14:25)
== END 2022-03-27 15:08 | disposition home or self-care (01) ==
LOC: ER 09:30
PROVIDERS: Physician Assistant
DX: K52.9 Noninfective gastroenteritis and colitis, unspecified (principal); I10 Essential (primary) hypertension; Z88.0 Allergy status to penicillin; Z88.5 Allergy status to narcotic agent; Z87.891 Personal history of nicotine dependence
CPT/HCPCS: 36415; 80053; 81001; 83605; 83690; 85025; A9270; J1885; J2270; J2405; J7030

== ENCOUNTER 2022-05-07 09:42 | Emergency (ER) | payer OTHER ==
[~2022-05-07] VITALS: Ht 165.1 cm; Wt 79.4 kg
[~2022-05-07 09:42] MED LIST changes: +METR500 PO
[2022-05-07 11:23] LABS: BASOPHILS ABSOLUTE AUTO 0.03 K/mm3 (0.00-0.23); BASOPHILS PERCENT AUTO 0 % (0-2); EOSINOPHILS PERCENT AUTO 0 % (0-6); Hematocrit 41.3 % (37.0-53.0); Hemoglobin 14.1 g/dL (13.5-17.5); IMMATURE GRAN ABSOLUTE AUTO 0.05 K/mm3 (0.00-0.10); IMMATURE GRAN PERCENT AUTO 1 % (0-1); LYMPHOCYTES ABSOLUTE AUTO 0.87 K/mm3 (0.84-5.20); LYMPHOCYTES PERCENT AUTO 8 % (21-46); MONOCYTES ABSOLUTE AUTO 0.41 K/mm3 (0.16-1.47); MONOCYTES PERCENT AUTO 4 % (4-13); Mean Corpuscular HGB 30.5 pg (26.0-34.0); Mean Corpuscular HGB Conc 34.1 g/dL (31.5-36.5); Mean Corpuscular Volume 89 fL (80-100); Mean Platelet Volume 11.6 fL (9.1-12.4); NEUTROPHILS ABSOLUTE AUTO 9.53 K/mm3 (1.96-9.15); NEUTROPHILS PERCENT AUTO 87 % (41-73); Platelet Count 220 K/mm3 (150-400); RDW Coefficient Variation 12.7 % (11.7-14.2); RDW Standard Deviation 41.6 fL (35.1-46.3); Red Blood Cell Count 4.63 M/mm3 (4.30-5.90); White Blood Cell Count 10.89 K/mm3 (4.00-11.30)
[2022-05-07 11:30] LABS: Albumin, Blood 4.2 g/dL (3.4-5.0); Albumin/Globulin Ratio 1.4 (0.8-1.8); Bilirubin, Total 0.4 mg/dL (0.1-1.0); Bun/Creatinine Ratio 17.3 (12.0-20.0); Calcium, Blood 9.2 mg/dL (8.5-10.1); Creatinine, Blood 0.93 mg/dL (0.60-1.20); Potassium, Blood 3.4 mmol/L (3.5-5.5); Total Protein, Blood 7.2 g/dL (6.4-8.2)
[2022-05-07] MEDS ORDERED: ONDA4ODT MM (11:51)
== END 2022-05-07 12:08 | disposition home or self-care (01) ==
LOC: ER 09:42
PROVIDERS: Student in an Organized Health Care Education/Training Program
DX: R11.2 Nausea with vomiting, unspecified (principal); I10 Essential (primary) hypertension; Z88.0 Allergy status to penicillin; Z88.5 Allergy status to narcotic agent; Z79.899 Other long term (current) drug therapy; Z87.891 Personal history of nicotine dependence
CPT/HCPCS: 36415; 80053; 83690; 85025; 96374; 96375; 99284-25; J1200; J1630; J1885; J2405

== ENCOUNTER 2022-05-23 08:52 | Emergency (ER) | payer OTHER ==
[~2022-05-23] VITALS: Ht 170.2 cm; Wt 65.8 kg
[2022-05-23 09:23] LABS: BASOPHILS ABSOLUTE AUTO 0.05 K/mm3 (0.00-0.23); BASOPHILS PERCENT AUTO 0 % (0-2); EOSINOPHILS PERCENT AUTO 0 % (0-6); Hematocrit 46.4 % (37.0-53.0); Hemoglobin 16.5 g/dL (13.5-17.5); IMMATURE GRAN PERCENT AUTO 1 % (0-1); LYMPHOCYTES ABSOLUTE AUTO 1.33 K/mm3 (0.84-5.20); LYMPHOCYTES PERCENT AUTO 9 % (21-46); MONOCYTES ABSOLUTE AUTO 0.44 K/mm3 (0.16-1.47); MONOCYTES PERCENT AUTO 3 % (4-13); Mean Corpuscular HGB 30.2 pg (26.0-34.0); Mean Corpuscular HGB Conc 35.6 g/dL (31.5-36.5); Mean Corpuscular Volume 85 fL (80-100); Mean Platelet Volume 10.8 fL (9.1-12.4); NEUTROPHILS PERCENT AUTO 86 % (41-73); Platelet Count 339 K/mm3 (150-400); RDW Coefficient Variation 12.7 % (11.7-14.2); RDW Standard Deviation 39.5 fL (35.1-46.3); Red Blood Cell Count 5.47 M/mm3 (4.30-5.90); White Blood Cell Count 14.12 K/mm3 (4.00-11.30)
[2022-05-23 09:45] LABS: Albumin/Globulin Ratio 1.4 (0.8-1.8); Bilirubin, Total 0.9 mg/dL (0.1-1.0); Bun/Creatinine Ratio 20.2 (12.0-20.0); Calcium, Blood 10.3 mg/dL (8.5-10.1); Creatinine, Blood 1.14 mg/dL (0.60-1.20); Globulin, Blood 3.5 g/dL (2.2-4.0); Potassium, Blood 3.8 mmol/L (3.5-5.5); Total Protein, Blood 8.5 g/dL (6.4-8.2)
[2022-05-23] MEDS ORDERED: METO10 PO (12:57)
== END 2022-05-23 14:00 | disposition home or self-care (01) ==
LOC: ER 08:52
PROVIDERS: Emergency Medicine
DX: R10.13 Epigastric pain (principal); R11.2 Nausea with vomiting, unspecified; I10 Essential (primary) hypertension; Z87.891 Personal history of nicotine dependence; Z79.899 Other long term (current) drug therapy
CPT/HCPCS: 36415; 80053; 83690; 83735; 85025; 96361; 96374; 96375; 96376; 99284-25; J1630; J3010; J7030

== ENCOUNTER 2022-05-26 13:07 | Emergency (ER) | payer OTHER ==
[~2022-05-26] VITALS: Ht 170.2 cm; Wt 61.2 kg
[~2022-05-26 13:07] MED LIST changes: +METO10 PO
[2022-05-26 14:25] LABS: BASOPHILS ABSOLUTE AUTO 0.02 K/mm3 (0.00-0.23); BASOPHILS PERCENT AUTO 0 % (0-2); EOSINOPHILS PERCENT AUTO 0 % (0-6); Hematocrit 41.9 % (37.0-53.0); Hemoglobin 15.3 g/dL (13.5-17.5); IMMATURE GRAN ABSOLUTE AUTO 0.03 K/mm3 (0.00-0.10); IMMATURE GRAN PERCENT AUTO 0 % (0-1); LYMPHOCYTES ABSOLUTE AUTO 0.94 K/mm3 (0.84-5.20); LYMPHOCYTES PERCENT AUTO 9 % (21-46); MONOCYTES ABSOLUTE AUTO 0.42 K/mm3 (0.16-1.47); MONOCYTES PERCENT AUTO 4 % (4-13); Mean Corpuscular HGB 30.7 pg (26.0-34.0); Mean Corpuscular HGB Conc 36.5 g/dL (31.5-36.5); Mean Corpuscular Volume 84 fL (80-100); Mean Platelet Volume 10.8 fL (9.1-12.4); NEUTROPHILS PERCENT AUTO 86 % (41-73); Platelet Count 256 K/mm3 (150-400); RDW Coefficient Variation 12.7 % (11.7-14.2); RDW Standard Deviation 38.8 fL (35.1-46.3); Red Blood Cell Count 4.99 M/mm3 (4.30-5.90); White Blood Cell Count 10.21 K/mm3 (4.00-11.30)
[2022-05-26 14:32] LABS: Albumin, Blood 4.6 g/dL (3.4-5.0); Albumin/Globulin Ratio 1.4 (0.8-1.8); Bilirubin, Total 0.8 mg/dL (0.1-1.0); Bun/Creatinine Ratio 18.2 (12.0-20.0); Calcium, Blood 9.9 mg/dL (8.5-10.1); Creatinine, Blood 0.99 mg/dL (0.60-1.20); Globulin, Blood 3.3 g/dL (2.2-4.0); Potassium, Blood 3.6 mmol/L (3.5-5.5); Total Protein, Blood 7.9 g/dL (6.4-8.2)
[2022-05-26 15:24] LABS: U Amphetamine Screen Not Detected; U Barbituate Screen Not Detected; U Benzodiazapine Screen Not Detected; U Buprenorphine Screen Not Detected; U Cannabinoids Screen DETECTED; U Cocaine Screen Not Detected; U Methadone Screen Not Detected; U Methamphetamine Screen Not Detected; U Opiates Screen DETECTED; U Oxycodone Screen Not Detected; U Phencyclidine Screen Not Detected; U Propoxyphene Screen Not Detected
[2022-05-26] MEDS ORDERED: HYDR1TAB94 PO (15:38)
[2022-05-26] MEDS ORDERED: PROM25 PO (15:38)
[2022-05-26] MEDS ORDERED: Pepcid20 MG PO (15:38)
== END 2022-05-26 15:51 | disposition home or self-care (01) ==
LOC: ER 13:07
PROVIDERS: Emergency Medicine
DX: R10.9 Unspecified abdominal pain (principal); R11.2 Nausea with vomiting, unspecified; I10 Essential (primary) hypertension; Z87.19 Personal history of other diseases of the digestive system; Z88.0 Allergy status to penicillin; Z88.5 Allergy status to narcotic agent; Z79.899 Other long term (current) drug therapy; Z87.891 Personal history of nicotine dependence
CPT/HCPCS: 80053; 83690; 85025; C9113; J1170; J1790; J7120

== ENCOUNTER → 2022-06-01 | Outpatient (CLI) | payer OTHER ==
[~2022-06-01] MED LIST changes: +HYDR1TAB94 PO; +Pepcid20 MG PO
[2022-06-05 08:05] LABS: Stool Occult Bld Immuno 1 Negative (NEGATIVE)
== END | disposition home or self-care (01) ==
LOC: LAB SHORT 12:00 → LAB 12:00
PROVIDERS: Internal Medicine Nephrology
DX: N18.2 Chronic kidney disease, stage 2 (mild) (principal); D63.1 Anemia in chronic kidney disease; N25.81 Secondary hyperparathyroidism of renal origin; E55.9 Vitamin D deficiency, unspecified; E78.00 Pure hypercholesterolemia, unspecified; D51.8 Other vitamin B12 deficiency anemias; R76.9 Abnormal immunological finding in serum, unspecified; R94.5 Abnormal results of liver function studies
CPT/HCPCS: G0328

== ENCOUNTER → 2022-06-03 | Outpatient (CLI) | payer OTHER ==
[2022-06-04 18:59] LABS: Microalbumin, Urine Quant. 6.71 mg/L (0.000-20.000); Protein, Urine Quantitative 14.7 mg/dL (0.0-11.9)
== END | disposition home or self-care (01) ==
LOC: LAB SHORT 11:00 → LAB 11:00 → EDSTATUS 01-23 11:30 → LAB FUT 01-23 11:30
PROVIDERS: Internal Medicine Nephrology
DX: N18.30 Chronic kidney disease, stage 3 unspecified (principal); D63.1 Anemia in chronic kidney disease; N25.81 Secondary hyperparathyroidism of renal origin; E55.9 Vitamin D deficiency, unspecified; E78.00 Pure hypercholesterolemia, unspecified; R76.9 Abnormal immunological finding in serum, unspecified; R94.5 Abnormal results of liver function studies; G60.9 Hereditary and idiopathic neuropathy, unspecified; D51.8 Other vitamin B12 deficiency anemias
CPT/HCPCS: 81050; 82043; 82570; 84156

== ENCOUNTER 2022-07-18 08:05 | Emergency (ER) | payer OTHER ==
[~2022-07-18] VITALS: Ht 170.2 cm; Wt 63.5 kg
[~2022-07-18 08:05] MED LIST changes: +OMEP20ER
[2022-07-18 09:20] LABS: BASOPHILS ABSOLUTE AUTO 0.03 K/mm3 (0.00-0.23); BASOPHILS PERCENT AUTO 0 % (0-2); EOSINOPHILS ABSOLUTE AUTO 0.06 K/mm3 (0.00-0.68); EOSINOPHILS PERCENT AUTO 1 % (0-6); Hematocrit 44.4 % (37.0-53.0); IMMATURE GRAN ABSOLUTE AUTO 0.05 K/mm3 (0.00-0.10); IMMATURE GRAN PERCENT AUTO 0 % (0-1); LYMPHOCYTES ABSOLUTE AUTO 1.49 K/mm3 (0.84-5.20); LYMPHOCYTES PERCENT AUTO 11 % (21-46); MONOCYTES ABSOLUTE AUTO 0.71 K/mm3 (0.16-1.47); MONOCYTES PERCENT AUTO 5 % (4-13); Mean Corpuscular HGB 30.5 pg (26.0-34.0); Mean Corpuscular HGB Conc 33.8 g/dL (31.5-36.5); Mean Corpuscular Volume 90 fL (80-100); Mean Platelet Volume 11.9 fL (9.1-12.4); NEUTROPHILS ABSOLUTE AUTO 10.87 K/mm3 (1.96-9.15); NEUTROPHILS PERCENT AUTO 82 % (41-73); Platelet Count 240 K/mm3 (150-400); RDW Coefficient Variation 13.3 % (11.7-14.2); RDW Standard Deviation 44.5 fL (35.1-46.3); Red Blood Cell Count 4.91 M/mm3 (4.30-5.90); White Blood Cell Count 13.21 K/mm3 (4.00-11.30)
[2022-07-18 09:51] LABS: Albumin, Blood 4.3 g/dL (3.4-5.0); Albumin/Globulin Ratio 1.2 (0.8-1.8); Bilirubin, Total 0.4 mg/dL (0.1-1.0); Bun/Creatinine Ratio 23.1 (12.0-20.0); Calcium, Blood 9.2 mg/dL (8.5-10.1); Creatinine, Blood 0.91 mg/dL (0.60-1.20); Globulin, Blood 3.5 g/dL (2.2-4.0); Total Protein, Blood 7.8 g/dL (6.4-8.2)
[2022-07-18] MEDS ORDERED: PHENERGAN25 MG PR (11:33)
[2022-07-18 12:30] VITALS: BP 172/112
== END 2022-07-18 12:30 | disposition home or self-care (01) ==
LOC: ER 08:05
PROVIDERS: Physician Assistant
DX: R11.2 Nausea with vomiting, unspecified (principal); I12.9 Hypertensive chronic kidney disease with stage 1 through stage 4 chronic kidney disease, or unspecified chronic kidney disease; N18.9 Chronic kidney disease, unspecified; Z88.0 Allergy status to penicillin; Z88.5 Allergy status to narcotic agent; Z87.891 Personal history of nicotine dependence
CPT/HCPCS: 80053; 83690; 85025; 96374; 96375; 99284-25; J1630; J1885; J7030

== ENCOUNTER 2022-07-24 15:54 | Emergency (ER) | payer OTHER ==
[~2022-07-24] VITALS: Ht 172.7 cm; Wt 63.5 kg
[~2022-07-24 15:54] MED LIST changes: +PANTOPRAZOLE SO40 M2 PO; +Zofran4 MG
[2022-07-24 19:54] LABS: BASOPHILS ABSOLUTE AUTO 0.04 K/mm3 (0.00-0.23); BASOPHILS PERCENT AUTO 0 % (0-2); EOSINOPHILS PERCENT AUTO 0 % (0-6); Hematocrit 42.8 % (37.0-53.0); Hemoglobin 14.8 g/dL (13.5-17.5); IMMATURE GRAN ABSOLUTE AUTO 0.08 K/mm3 (0.00-0.10); IMMATURE GRAN PERCENT AUTO 1 % (0-1); LYMPHOCYTES ABSOLUTE AUTO 1.23 K/mm3 (0.84-5.20); LYMPHOCYTES PERCENT AUTO 11 % (21-46); MONOCYTES PERCENT AUTO 6 % (4-13); Mean Corpuscular HGB 30.1 pg (26.0-34.0); Mean Corpuscular HGB Conc 34.6 g/dL (31.5-36.5); Mean Corpuscular Volume 87 fL (80-100); Mean Platelet Volume 10.9 fL (9.1-12.4); NEUTROPHILS ABSOLUTE AUTO 9.63 K/mm3 (1.96-9.15); NEUTROPHILS PERCENT AUTO 83 % (41-73); Platelet Count 262 K/mm3 (150-400); RDW Coefficient Variation 12.8 % (11.7-14.2); RDW Standard Deviation 40.7 fL (35.1-46.3); Red Blood Cell Count 4.91 M/mm3 (4.30-5.90); White Blood Cell Count 11.68 K/mm3 (4.00-11.30)
[2022-07-24 20:21] LABS: Albumin, Blood 4.1 g/dL (3.4-5.0); Albumin/Globulin Ratio 1.3 (0.8-1.8); Bilirubin, Total 0.7 mg/dL (0.1-1.0); Bun/Creatinine Ratio 13.1 (12.0-20.0); Calcium, Blood 9.2 mg/dL (8.5-10.1); Creatinine, Blood 0.84 mg/dL (0.60-1.20); Globulin, Blood 3.1 g/dL (2.2-4.0); Potassium, Blood 3.6 mmol/L (3.5-5.5); Total Protein, Blood 7.2 g/dL (6.4-8.2)
[2022-07-24] MEDS ORDERED: ONDA4ODT MM (21:46)
[2022-07-24 22:09] VITALS: BP 153/111
== END 2022-07-24 22:03 | disposition home or self-care (01) ==
LOC: ER 15:54
PROVIDERS: Emergency Medicine
DX: K52.9 Noninfective gastroenteritis and colitis, unspecified (principal); I12.9 Hypertensive chronic kidney disease with stage 1 through stage 4 chronic kidney disease, or unspecified chronic kidney disease; N18.9 Chronic kidney disease, unspecified; Z88.0 Allergy status to penicillin; Z88.5 Allergy status to narcotic agent; Z87.891 Personal history of nicotine dependence; R10.33 Periumbilical pain; G89.29 Other chronic pain; R11.2 Nausea with vomiting, unspecified
CPT/HCPCS: 74018; 74177; 80053; 81001; 83690; 84484; 85025; 93005; 93010; 96361; 96374; 96374-59; 96375; 99284-25; A9270; J1200; J1630; J1790; J1885; J2405; J2550; J7030; Q9967

== ENCOUNTER 2022-09-13 13:39 | Emergency (ER) | payer OTHER ==
[~2022-09-13] VITALS: Ht 170.2 cm; Wt 63.5 kg
[2022-09-13 14:16] LABS: BASOPHILS ABSOLUTE AUTO 0.06 K/mm3 (0.00-0.23); BASOPHILS PERCENT AUTO 0 % (0-2); EOSINOPHILS ABSOLUTE AUTO 0.04 K/mm3 (0.00-0.68); EOSINOPHILS PERCENT AUTO 0 % (0-6); Hematocrit 47.6 % (37.0-53.0); Hemoglobin 16.4 g/dL (13.5-17.5); IMMATURE GRAN ABSOLUTE AUTO 0.12 K/mm3 (0.00-0.10); IMMATURE GRAN PERCENT AUTO 1 % (0-1); LYMPHOCYTES ABSOLUTE AUTO 2.25 K/mm3 (0.84-5.20); LYMPHOCYTES PERCENT AUTO 15 % (21-46); MONOCYTES ABSOLUTE AUTO 0.61 K/mm3 (0.16-1.47); MONOCYTES PERCENT AUTO 4 % (4-13); Mean Corpuscular HGB 30.5 pg (26.0-34.0); Mean Corpuscular HGB Conc 34.5 g/dL (31.5-36.5); Mean Corpuscular Volume 89 fL (80-100); Mean Platelet Volume 11.6 fL (9.1-12.4); NEUTROPHILS ABSOLUTE AUTO 11.53 K/mm3 (1.96-9.15); NEUTROPHILS PERCENT AUTO 79 % (41-73); Platelet Count 302 K/mm3 (150-400); RDW Coefficient Variation 13.5 % (11.7-14.2); Red Blood Cell Count 5.38 M/mm3 (4.30-5.90); White Blood Cell Count 14.61 K/mm3 (4.00-11.30)
[2022-09-13 14:35] LABS: Albumin, Blood 4.9 g/dL (3.4-5.0); Albumin/Globulin Ratio 1.4 (0.8-1.8); Bilirubin, Total 0.8 mg/dL (0.1-1.0); Bun/Creatinine Ratio 14.9 (12.0-20.0); Calcium, Blood 10.6 mg/dL (8.5-10.1); Creatinine, Blood 1.21 mg/dL (0.60-1.20); Globulin, Blood 3.5 g/dL (2.2-4.0); Potassium, Blood 4.4 mmol/L (3.5-5.5); Total Protein, Blood 8.4 g/dL (6.4-8.2)
[2022-09-13 15:57] LABS: Source, Urine Clean Catch
[2022-09-13 16:04] LABS: Bilirubin, Urine Neg (Neg); Blood, Urine 3+ (Neg); Color, Urine Yellow (P-Yellow); Glucose Qualitative, Urine Neg (Neg); Ketones, Urine 1+ (Neg); Leukocyte Esterase, Urine Neg (Neg); Nitrite, Urine Neg (Neg); Protein, Urine Neg (Neg); Urobilinogen, Urine NORM (Normal)
[2022-09-13 16:20] LABS: Appearance, Urine Hazy (Clear)
[2022-09-13 16:22] LABS: Calcium Oxalate Crystals Rare /hpf; Mucus Mod (0-Heavy); Squamous Epithelial Cells Rare /hpf (Few); White Blood Cells, Urine 0-2 /hpf (0-5)
[2022-09-13 16:23] LABS: Bacteria Mod /hpf; Hyaline Casts 0-2 /lpf (0-2)
[2022-09-13 16:31] LABS: U Amphetamine Screen Not Detected; U Barbituate Screen Not Detected; U Benzodiazapine Screen Not Detected; U Buprenorphine Screen Not Detected; U Cannabinoids Screen DETECTED; U Cocaine Screen Not Detected; U Methadone Screen Not Detected; U Methamphetamine Screen Not Detected; U Opiates Screen DETECTED; U Oxycodone Screen Not Detected; U Phencyclidine Screen Not Detected; U Propoxyphene Screen Not Detected
[2022-09-13] MEDS ORDERED: Prinivil5 MG PO (16:56)
[2022-09-13] MEDS ORDERED: ONDA4ODT SL (16:56)
[2022-09-13] MEDS ORDERED: PROM25 PO (16:56)
[2022-09-13 17:00] VITALS: BP 183/113
[2022-09-15] MEDS ORDERED: LOSARTAN POTASS25 M2 PO (15:51)
[2022-09-17] MEDS ORDERED: ONDA4ODT MM (11:21)
[2022-09-17] MEDS ORDERED: AMLO5 PO (12:16)
[2022-09-17] MEDS ORDERED: LISI5 PO (12:18)
== END 2022-09-13 17:30 | disposition home or self-care (01) ==
LOC: ER 13:39
PROVIDERS: Emergency Medicine
DX: R10.9 Unspecified abdominal pain (principal); R11.2 Nausea with vomiting, unspecified; I10 Essential (primary) hypertension; K21.9 Gastro-esophageal reflux disease without esophagitis; Z88.0 Allergy status to penicillin; Z88.5 Allergy status to narcotic agent; Z79.899 Other long term (current) drug therapy; Z87.891 Personal history of nicotine dependence
CPT/HCPCS: 80053; 81001; 83690; 85025; 87086; 93005; 93010; 96374; 96375; 99284-25; A9270; C9113; J1170; J1790; J7120

== ENCOUNTER 2022-09-15 15:23 | Inpatient (IN) | payer OTHER ==
[~2022-09-15] VITALS: Ht 170.2 cm; Wt 59.5 kg
[~2022-09-15 15:23] MED LIST changes: +Prinivil5 MG PO
[2022-09-15] MEDS ORDERED: LOSARTAN POTASS25 M2 PO ×2 (15:51)
[2022-09-15 16:14] LABS: BASOPHILS ABSOLUTE AUTO 0.04 K/mm3 (0.00-0.23); BASOPHILS PERCENT AUTO 0 % (0-2); EOSINOPHILS PERCENT AUTO 0 % (0-6); Hematocrit 49.2 % (37.0-53.0); Hemoglobin 17.8 g/dL (13.5-17.5); IMMATURE GRAN ABSOLUTE AUTO 0.21 K/mm3 (0.00-0.10); IMMATURE GRAN PERCENT AUTO 1 % (0-1); LYMPHOCYTES ABSOLUTE AUTO 1.94 K/mm3 (0.84-5.20); LYMPHOCYTES PERCENT AUTO 11 % (21-46); MONOCYTES ABSOLUTE AUTO 1.68 K/mm3 (0.16-1.47); MONOCYTES PERCENT AUTO 10 % (4-13); Mean Corpuscular HGB 30.2 pg (26.0-34.0); Mean Corpuscular HGB Conc 36.2 g/dL (31.5-36.5); Mean Platelet Volume 11.3 fL (9.1-12.4); NEUTROPHILS ABSOLUTE AUTO 13.48 K/mm3 (1.96-9.15); NEUTROPHILS PERCENT AUTO 78 % (41-73); Platelet Count 318 K/mm3 (150-400); RDW Coefficient Variation 13.3 % (11.7-14.2); White Blood Cell Count 17.35 K/mm3 (4.00-11.30)
[2022-09-15 16:21] LABS: Mean Corpuscular Volume 83 fL (80-100)
[2022-09-15 16:25] LABS: Albumin, Blood 5.1 g/dL (3.4-5.0); Albumin/Globulin Ratio 1.5 (0.8-1.8); Bilirubin, Total 1.3 mg/dL (0.1-1.0); Bun/Creatinine Ratio 9.7 (12.0-20.0); Calcium, Blood 9.8 mg/dL (8.5-10.1); Creatinine, Blood 5.28 mg/dL (0.60-1.20); Globulin, Blood 3.5 g/dL (2.2-4.0); Potassium, Blood 3.5 mmol/L (3.5-5.5); Total Protein, Blood 8.6 g/dL (6.4-8.2)
[2022-09-15 18:07] LABS: Bicarbonate Venous 23.5 mmol/L (24.0-30.0); PCO2 Venous 32.3 mmHg (38-42); pH Blood Venous 7.44 (7.34-7.37)
[2022-09-15 20:38] LABS: Source, Urine Clean Catch
[2022-09-15 20:44] LABS: Appearance, Urine Clear (Clear); Bilirubin, Urine Neg (Neg); Blood, Urine 3+ (Neg); Color, Urine Yellow (P-Yellow); Glucose Qualitative, Urine Neg (Neg); Ketones, Urine 1+ (Neg); Leukocyte Esterase, Urine Neg (Neg); Nitrite, Urine Neg (Neg); Protein, Urine 2+ (Neg); Specific Gravity, Urine 1.025 (1.003-1.022); Urobilinogen, Urine NORM (Normal)
--- NOTE | 2022-09-15 20:48 | NUR ---
ACCEPTING RN SELENA SANCHEZ SPOKE WITH PRIMARY GROUP EXERCISE MANAGER DARIUS FOR REPORT PRIOR TO TRANSFER. GROUP EXERCISE MANAGER STATED THAT PATIENT WAS JUST GIVEN DILAUDED 10 MINUTES PRIOR, AND PATIENT WAS RESTING COMFORTABLY WITH 02 SAT MID 90'S AND RESPIRATIONS OF 6 PER MINUTE. RESPIRATIONS WERE QUESTIONED BY THE RECEIVING RN, AND ER PRIMARY ASSURED HER PATIENT WOKE EASILY AND WAS READY FOR TRANSFER. PUTTY MIXER AND APPLIER INFORMED. DULCE MARIA COHEN, RN
[2022-09-15 20:56] LABS: Bacteria Few /hpf; Squamous Epithelial Cells Rare /hpf (Few)
[2022-09-15 20:57] LABS: Calcium Oxalate Crystals Rare /hpf
[2022-09-15 21:05] VITALS: BP 128/75
[2022-09-15 21:09] LABS: Bun/Creatinine Ratio 13.9 (12.0-20.0); Calcium, Blood 8.1 mg/dL (8.5-10.1); Creatinine, Blood 3.09 mg/dL (0.60-1.20); Potassium, Blood 4.2 mmol/L (3.5-5.5)
--- NOTE | 2022-09-15 22:00 | NUR ---
ADMIT NOTE; PT ARRIVES FROM THE ED VIA GURNEY. THE PT IS AXO X4 AND INDEPENDENT IN THE ROOM THEREFORE THE PT IS ABLE TO INDEPENDENTLY TRANSFER FROM ED GURNEY TO THE HOSPITAL BED. UPOM ADMIT THE PT ARRIVES WITH KCL AND NS INFUSING, TOLERATIMNG WELL. THE PT ENDORSES SOME NAUSEA BUT NO VOMITING. THE PT ALSO ENDORSES 3/10 ABD PAIN UPON ADMIT. THE PT HAS NO FURTHER COMPLAINTS AT THIS TIME. THE PT APPEARS TO BE IN NO ACUTE DISTRESS. CURRENTLY THE PT IS SLEEPING IN BED WITH THE BED IN THE LOWEST POSITION AND THE CALL LIGHT AT BEDSIDE.
--- NOTE | 2022-09-15 23:19 | NUR ---
GARMENT FINISHER VERIFIED WITH PT THAT HE HAS NO FLAMMABLE OBJECTS IN HIS POSSESION WELL EDUCATED PT ON POTENTIAL FLAMMABLE OBJECTS/ITEMS.
--- NOTE | 2022-09-16 04:07 | NUR ---
SHIFT SUMMARY; NO ACUTE CHANGES OVERNIGHT. THE PT HAS BEEN RESTING IN BED SINCE ADMIT. THE PT IS AXO X4 AND INDEPENDENT IN THE ROOM. THE PT WAS NAUSEOUS UPON ADMIT BUT HAS NOT SINCE ENDORSED BEING NAUSEOUS. THE PT HAS BEEN ABLE TO URINATE A FEW TIMES THIS EVENING W/O DIFFICULTY. THE PT DENIES ANY CHEST PAIN/PRESSURE OR SOB. CURRENTLY THE PT IS SLEEPING IN BED WITH THE BED IN THE LOWEST POSITION AND THE CALL LIGHT AT BEDSIDE.
[2022-09-16 04:51] LABS: Hematocrit 38.1 % (37.0-53.0); Hemoglobin 13.2 g/dL (13.5-17.5); Mean Corpuscular HGB 30.3 pg (26.0-34.0); Mean Corpuscular HGB Conc 34.6 g/dL (31.5-36.5); Mean Platelet Volume 11.2 fL (9.1-12.4); Platelet Count 190 K/mm3 (150-400); RDW Coefficient Variation 13.7 % (11.7-14.2); RDW Standard Deviation 44.3 fL (35.1-46.3); Red Blood Cell Count 4.35 M/mm3 (4.30-5.90); White Blood Cell Count 9.99 K/mm3 (4.00-11.30)
[2022-09-16 04:53] LABS: Mean Corpuscular Volume 88 fL (80-100)
[2022-09-16 05:17] LABS: Bun/Creatinine Ratio 17.6 (12.0-20.0); Calcium, Blood 7.7 mg/dL (8.5-10.1); Creatinine, Blood 2.05 mg/dL (0.60-1.20); Magnesium, Blood 2.2 mg/dL (1.6-2.4); Potassium, Blood 3.8 mmol/L (3.5-5.5)
--- NOTE | 2022-09-16 05:29 | NUR ---
CALLED DR. CORCORAN TO REQUEST INCREASE IN PAIN MEDICATION FOR PT. PT AWOKE THIS MORMNING WITH 10/10 ABD PAIN. I MEDICATED THE PT WITH A TOTAL OF 50MCG OF FENTANYL WITH NO RELIEF. PT IS HOLDING ABDOMEN AND TEARFUL. PT VOMITTED 100MLS, MEDICATED FOR NAUSEA. NOTIFIED OF PTS CURRENT STATE, NO NEW ORDERS AT THIS TIME.
[2022-09-16 07:32] VITALS: BP 163/108
--- NOTE | 2022-09-16 10:29 | NUR ---
DR VANG ROUNDED ON PATEINT ADJUSTED AND ADDED MEDICATIONS, PATIENT INFORMED OFF ALL CHANGES, INGNITION AND FIRES SAFETY REVIEWED WITH PATIENT, MEDICATED FOR PAIN ORDERED, HAD A DM VERY HARD REPORTED FROM PATIENT, CALL LIGHT WITH IN REACH
[2022-09-16 15:46] VITALS: BP 132/89
--- NOTE | 2022-09-16 18:26 | NUR ---
NO ACUTE CHANGES, PATIENT RATES PAIN 10 AND SHARP, PATIENT CONTINUES TO BARE DONE AND HYUPERVETILATE, KPAD TO ABD, MEDICATED WITH LEVSIN, FENT, ZOFRAN, REGLAN STARTED SCHEDULED, MINIMAL FOOD TOLERATED, USE BSC INDEPENDENTLY, BUN CREAT AND GFR IMPROVED, NS @200, DM TODAY, PATIENT REPORTS IT BEING A PELLET. PATEINT NORBERT LOUDLY AND IS UNCONSOLABLE WITH THE PAIN, DR MARTIN, PATIENT SEEN IN HOSPITAL EVERY 2 MONTH, HAD A COLONSCOPY 2 MONTHS AGO, CALL LIGHT WITH IN REACH, WILL RELAY TO PM JACKI
[2022-09-16 20:21] VITALS: BP 168/109
--- NOTE | 2022-09-16 22:08 | NUR ---
ATTEMPTED TO TAKE PTS BLOOD PRESSURE MULTIPLE TIMES THIS EVENING. EACH TIME THE PT BEARS DOWN AND FLEXES WHILE VITALS ARE BEING TAKEN. PT IS HOLDING HIS ABDOMEN AND STATES THAT HIS ABD PAIN IS 10/10. PT HAS ALSO BEEN MEDICATED FOR PAIN AND WITH NAUSEA MEDICATION. EDUCATED PT ON RELAXATION TECHNIQUES BUT PT HAS YET TO IMPLEMENT THEM. WILL CONTINUE TO ATTEMPT TO TAKE VITALS ON PT.
[2022-09-16 23:20] VITALS: BP 133/92
--- NOTE | 2022-09-17 04:26 | NUR ---
SHIFT SUMMARY; NO ACUTE CHANGES OVERNIGHT. THE PT IS AXO X4 AND INDEPENDENT IN THE ROOM. THE PT WAS ENDORSING 10/10 ABD PAIN AT THE BEGINNING OF SHIFT, HOWEVER AFTER BEING MEDICATED FOR PAIN AND NAUSEA THE PT WAS ABLE TO SLEEP THE REST OF THE NIGHT. CURRENTLY THE PT IS SLEEPING IN BED WITH THE BED IN THE LOWEST POSITION AND THE CALL LIGHT AT BEDSIDE. THE PT DENIES ANY SOB OR CHEST PAIN/PRESSURE THIS SHIFT. FIRE SAFETY WAS MAINTAINED T/O THE SHIFT.
[2022-09-17 05:11] LABS: BASOPHILS ABSOLUTE AUTO 0.03 K/mm3 (0.00-0.23); BASOPHILS PERCENT AUTO 0 % (0-2); EOSINOPHILS ABSOLUTE AUTO 0.03 K/mm3 (0.00-0.68); EOSINOPHILS PERCENT AUTO 0 % (0-6); Hematocrit 40.2 % (37.0-53.0); Hemoglobin 14.1 g/dL (13.5-17.5); IMMATURE GRAN ABSOLUTE AUTO 0.07 K/mm3 (0.00-0.10); IMMATURE GRAN PERCENT AUTO 1 % (0-1); LYMPHOCYTES ABSOLUTE AUTO 3.39 K/mm3 (0.84-5.20); LYMPHOCYTES PERCENT AUTO 33 % (21-46); MONOCYTES ABSOLUTE AUTO 1.14 K/mm3 (0.16-1.47); MONOCYTES PERCENT AUTO 11 % (4-13); Mean Corpuscular HGB 30.2 pg (26.0-34.0); Mean Corpuscular HGB Conc 35.1 g/dL (31.5-36.5); Mean Corpuscular Volume 86 fL (80-100); Mean Platelet Volume 11.9 fL (9.1-12.4); NEUTROPHILS ABSOLUTE AUTO 5.72 K/mm3 (1.96-9.15); NEUTROPHILS PERCENT AUTO 55 % (41-73); Platelet Count 213 K/mm3 (150-400); RDW Standard Deviation 40.5 fL (35.1-46.3); Red Blood Cell Count 4.67 M/mm3 (4.30-5.90); White Blood Cell Count 10.38 K/mm3 (4.00-11.30)
[2022-09-17 05:38] LABS: Bun/Creatinine Ratio 11.5 (12.0-20.0); Calcium, Blood 8.6 mg/dL (8.5-10.1); Creatinine, Blood 1.04 mg/dL (0.60-1.20); Potassium, Blood 3.4 mmol/L (3.5-5.5)
[2022-09-17 06:26] VITALS: BP 170/99
--- NOTE | 2022-09-17 06:27 | NUR ---
PT HOLDING ABD AND TEARFUL THIS AM IN RELATION TO ABD PAIN DESPITE MEDICATING THE PT FOR GI UPSET, PAIN AND N/V. UNABLE TO OBTAIN A ACCURATE B/P THIS AM DUE TO THE PT BAREING DOWN AND FLEXING CONTINUALLY DURING VITALS. EDUCATED THE PT ON RELAXATION TECHNIQUES. WILL RELAY TO DAYSHIFT RN TO OBTAIN ACCURATE VITALS ONCE PT IS SETTLED.
[2022-09-17 07:44] VITALS: BP 139/96
[2022-09-17] MEDS ORDERED: ONDA4ODT MM ×2 (11:21)
--- NOTE | 2022-09-17 12:10 | NUR ---
DISCHARGE MEDICATION VERBAL ORDER THIS RN DISCUSSED WITH DR. VANG THAT PT'S MEDICATION LIST WAS NOT UPDATED CORRECTLY. THIS RN LISTED MEDICATIONS THAT WERE MISSING FROM DISCHARGE MEDICATION LIST. DR. VANG VERBALLY ORDERED TO DC LISINOPRIL AND CONTINUE TAKING PHENERGAN AND PROTONIX WITH HOME DOSING THAT IS ON MEDICATION LIST. ZOFRAN WAS CHANGED TO NEW ORDERS GIVEN ON DISCHARGE MEDICATION LIST.
[2022-09-17] MEDS ORDERED: AMLO5 PO ×2 (12:16)
[2022-09-17] MEDS ORDERED: LISI5 PO ×2 (12:18)
--- NOTE | 2022-09-17 14:39 | NUR ---
PT DISCHARGED FROM THE UNIT. IV REMOVED. DISCHARGE INSTRUCTIONS REVIEWED. MEDICATION FAXED TO PHARMACY. PT LEFT UNIT VIA WHEEL CHAIR. TAXI TO DRIVE HOME.
== END 2022-09-17 13:00 | disposition home or self-care (01) | DRG 683 ==
LOC: ER 15:23 → MEDS 20:17 → ENPENDDIS 09-17 10:47 → MEDS 09-17 13:00
PROVIDERS: Internal Medicine; Nurse Practitioner Acute Care; Student in an Organized Health Care Education/Training Program; ADMIT Family Medicine
DX: N17.9 Acute kidney failure, unspecified (principal); E87.20 Acidosis, unspecified; I10 Essential (primary) hypertension; K21.9 Gastro-esophageal reflux disease without esophagitis; E86.9 Volume depletion, unspecified; D72.828 Other elevated white blood cell count; E86.0 Dehydration; R10.9 Unspecified abdominal pain; R11.2 Nausea with vomiting, unspecified; F41.9 Anxiety disorder, unspecified; Z87.11 Personal history of peptic ulcer disease; Z87.19 Personal history of other diseases of the digestive system; Z98.890 Other specified postprocedural states; Z79.899 Other long term (current) drug therapy; Z88.5 Allergy status to narcotic agent; Z88.0 Allergy status to penicillin; Z79.811 Long term (current) use of aromatase inhibitors; Z86.718 Personal history of other venous thrombosis and embolism; Z87.891 Personal history of nicotine dependence
CPT/HCPCS: 36415; 51798; 74176; 80048; 80053; 81001; 82550; 82803; 82947; 83605; 83690; 83735; 84484; 85025; 85027; 86038; 93005; 93010; 94760; 96361; 96365; 96366; 96375; 99285-25; A9270; C9113; J1170; J1200; J1644; J2405; J2765; J3010; J3480; J7030

== ENCOUNTER → 2022-10-31 | Outpatient (CLI) | payer OTHER ==
[~2022-10-31] MED LIST changes: +AMLO5 PO; +Bentyl10 MG PO; +FAMO20 PO; +LISI5 PO; +LOSARTAN POTASS25 M2 PO; +TRAZ50 PO
== END | disposition home or self-care (01) ==
LOC: LAB SHORT 10:28 → LAB 10:28
DX: R93.3 Abnormal findings on diagnostic imaging of other parts of digestive tract (principal)
CPT/HCPCS: 83993

== ENCOUNTER 2022-11-08 11:27 | Emergency (ER) | payer OTHER ==
[~2022-11-08] VITALS: Ht 170.2 cm; Wt 63.0 kg
[~2022-11-08 11:27] MED LIST changes: -Bentyl10 MG PO; -FAMO20 PO; -TRAZ50 PO
[2022-11-08 12:15] LABS: BASOPHILS ABSOLUTE AUTO 0.05 K/mm3 (0.00-0.23); BASOPHILS PERCENT AUTO 1 % (0-2); EOSINOPHILS ABSOLUTE AUTO 0.04 K/mm3 (0.00-0.68); EOSINOPHILS PERCENT AUTO 0 % (0-6); Hematocrit 47.1 % (37.0-53.0); Hemoglobin 16.8 g/dL (13.5-17.5); IMMATURE GRAN ABSOLUTE AUTO 0.03 K/mm3 (0.00-0.10); IMMATURE GRAN PERCENT AUTO 0 % (0-1); LYMPHOCYTES ABSOLUTE AUTO 2.81 K/mm3 (0.84-5.20); LYMPHOCYTES PERCENT AUTO 27 % (21-46); MONOCYTES ABSOLUTE AUTO 0.91 K/mm3 (0.16-1.47); MONOCYTES PERCENT AUTO 9 % (4-13); Mean Corpuscular HGB 30.7 pg (26.0-34.0); Mean Corpuscular HGB Conc 35.7 g/dL (31.5-36.5); Mean Corpuscular Volume 86 fL (80-100); Mean Platelet Volume 10.9 fL (9.1-12.4); NEUTROPHILS ABSOLUTE AUTO 6.42 K/mm3 (1.96-9.15); NEUTROPHILS PERCENT AUTO 63 % (41-73); Platelet Count 281 K/mm3 (150-400); RDW Coefficient Variation 12.8 % (11.7-14.2); Red Blood Cell Count 5.48 M/mm3 (4.30-5.90); White Blood Cell Count 10.26 K/mm3 (4.00-11.30)
[2022-11-08 12:38] LABS: Albumin, Blood 4.7 g/dL (3.4-5.0); Albumin/Globulin Ratio 1.3 (0.8-1.8); Bilirubin, Direct 0.2 mg/dL (0.0-0.3); Bilirubin, Indirect 0.7 mg/dL (0.1-0.7); Bilirubin, Total 0.9 mg/dL (0.1-1.0); Bun/Creatinine Ratio 11.5 (12.0-20.0); Creatinine, Blood 1.31 mg/dL (0.60-1.20); Globulin, Blood 3.6 g/dL (2.2-4.0); Potassium, Blood 3.5 mmol/L (3.5-5.5); Total Protein, Blood 8.3 g/dL (6.4-8.2)
[2022-11-08 15:32] LABS: Source, Urine Clean Catch
[2022-11-08 15:35] LABS: Bilirubin, Urine Neg (Neg); Blood, Urine 3+ (Neg); Color, Urine Yellow (P-Yellow); Glucose Qualitative, Urine 2+ (Neg); Ketones, Urine 4+ (Neg); Leukocyte Esterase, Urine Neg (Neg); Nitrite, Urine Neg (Neg); Protein, Urine Neg (Neg); Specific Gravity, Urine 1.015 (1.003-1.022); Urobilinogen, Urine NORM (Normal)
[2022-11-08 15:46] LABS: Appearance, Urine Hazy (Clear)
[2022-11-08 15:47] LABS: Mucus Mod (0-Heavy); Squamous Epithelial Cells Rare /hpf (Few); White Blood Cells, Urine 0-2 /hpf (0-5)
[2022-11-08 15:48] LABS: Amorphous Light (0-Heavy); Bacteria Many /hpf; Hyaline Casts 0-2 /lpf (0-2)
[2022-11-08] MEDS ORDERED: METO10 PO (16:15)
[2022-11-08] MEDS ORDERED: ONDA4ODT MM (16:15)
[2022-11-08] MEDS ORDERED: PROM12.5S PR (16:15)
[2022-11-08 16:30] VITALS: BP 170/118
== END 2022-11-08 16:42 | disposition home or self-care (01) ==
LOC: ER 11:27
PROVIDERS: Student in an Organized Health Care Education/Training Program
DX: R11.2 Nausea with vomiting, unspecified (principal); F12.90 Cannabis use, unspecified, uncomplicated; R10.84 Generalized abdominal pain; N17.9 Acute kidney failure, unspecified; Z88.0 Allergy status to penicillin; Z88.5 Allergy status to narcotic agent; Z79.899 Other long term (current) drug therapy; I10 Essential (primary) hypertension; K21.9 Gastro-esophageal reflux disease without esophagitis; Z87.891 Personal history of nicotine dependence
CPT/HCPCS: 80048; 80076; 81001; 83690; 83735; 85025; 87086; 93005; 93010; 96361; 96374; 96375; 96376; 99285-25; A9270; J1790; J1885; J7030

== ENCOUNTER 2022-11-09 20:51 | Inpatient (IN) | payer OTHER ==
[~2022-11-09] VITALS: Ht 170.2 cm; Wt 56.0 kg
[2022-11-09 21:39] LABS: Albumin, Blood 5.3 g/dL (3.4-5.0); Albumin/Globulin Ratio 1.6 (0.8-1.8); Bilirubin, Total 1.6 mg/dL (0.1-1.0); Bun/Creatinine Ratio 8.4 (12.0-20.0); Calcium, Blood 10.8 mg/dL (8.5-10.1); Creatinine, Blood 4.27 mg/dL (0.60-1.20); Globulin, Blood 3.3 g/dL (2.2-4.0); Potassium, Blood 3.9 mmol/L (3.5-5.5); Total Protein, Blood 8.6 g/dL (6.4-8.2)
[2022-11-09 23:51] LABS: BASOPHILS ABSOLUTE AUTO 0.04 K/mm3 (0.00-0.23); BASOPHILS PERCENT AUTO 0 % (0-2); EOSINOPHILS PERCENT AUTO 0 % (0-6); Hematocrit 46.8 % (37.0-53.0); Hemoglobin 17.3 g/dL (13.5-17.5); IMMATURE GRAN ABSOLUTE AUTO 0.14 K/mm3 (0.00-0.10); IMMATURE GRAN PERCENT AUTO 1 % (0-1); LYMPHOCYTES ABSOLUTE AUTO 2.02 K/mm3 (0.84-5.20); LYMPHOCYTES PERCENT AUTO 11 % (21-46); MONOCYTES ABSOLUTE AUTO 1.57 K/mm3 (0.16-1.47); MONOCYTES PERCENT AUTO 8 % (4-13); Mean Corpuscular HGB 30.1 pg (26.0-34.0); Mean Corpuscular Volume 82 fL (80-100); Mean Platelet Volume 10.9 fL (9.1-12.4); NEUTROPHILS ABSOLUTE AUTO 15.21 K/mm3 (1.96-9.15); NEUTROPHILS PERCENT AUTO 80 % (41-73); Platelet Count 309 K/mm3 (150-400); RDW Coefficient Variation 12.9 % (11.7-14.2); Red Blood Cell Count 5.74 M/mm3 (4.30-5.90); White Blood Cell Count 18.98 K/mm3 (4.00-11.30)
[2022-11-10 01:13] VITALS: BP 124/77
--- NOTE | 2022-11-10 05:30 | NUR ---
SHIFT SUMMARY PT ARRIVED TO UNIT ROUGHLY 0130 FROM ED, PT IS A&O4 INDEPENDENT WITH ADLS, NO EPISODE OF VOMITING SINCE ARRIVAL, NO COMPLAINTS OF PAIN, RA, VSS, CONTINUE POC
[2022-11-10 06:30] LABS: Albumin, Blood 4.1 g/dL (3.4-5.0); Albumin/Globulin Ratio 1.5 (0.8-1.8); Bilirubin, Total 0.8 mg/dL (0.1-1.0); Bun/Creatinine Ratio 13.6 (12.0-20.0); Calcium, Blood 8.9 mg/dL (8.5-10.1); Creatinine, Blood 3.01 mg/dL (0.60-1.20); Globulin, Blood 2.7 g/dL (2.2-4.0); Potassium, Blood 3.3 mmol/L (3.5-5.5); Total Protein, Blood 6.8 g/dL (6.4-8.2)
[2022-11-10 07:27] VITALS: BP 149/107
[2022-11-10 08:04] LABS: Source, Urine Voided
[2022-11-10 08:10] LABS: Appearance, Urine Hazy (Clear); Bilirubin, Urine Neg (Neg); Blood, Urine 2+ (Neg); Color, Urine Yellow (P-Yellow); Glucose Qualitative, Urine Neg (Neg); Ketones, Urine 2+ (Neg); Leukocyte Esterase, Urine Neg (Neg); Nitrite, Urine Neg (Neg); Protein, Urine 2+ (Neg); Urobilinogen, Urine NORM (Normal)
[2022-11-10 08:23] LABS: U Amphetamine Screen Not Detected; U Barbituate Screen Not Detected; U Benzodiazapine Screen Not Detected; U Buprenorphine Screen Not Detected; U Cannabinoids Screen DETECTED; U Cocaine Screen Not Detected; U Methadone Screen Not Detected; U Methamphetamine Screen Not Detected; U Opiates Screen Not Detected; U Oxycodone Screen Not Detected; U Phencyclidine Screen Not Detected; U Propoxyphene Screen Not Detected
[2022-11-10 08:37] LABS: Hyaline Casts 50-100 /lpf (0-2)
[2022-11-10 08:39] LABS: Calcium Oxalate Crystals Few /hpf
[2022-11-10 08:42] LABS: Bacteria Many /hpf
[2022-11-10 08:43] LABS: Mucus Heavy (0-Heavy); Squamous Epithelial Cells Rare /hpf (Few)
--- NOTE | 2022-11-10 16:25 | NUR ---
SHIFT SUMMARY PT HAS BEEN SLEEPING BUT WAKING WITH MEDICAITONS AND PT CARE. N/V CONTINUES. PT YELLING AND CRYING OUT IN DISCOMFORT. TREATED PER EMAR. DENIES PAIN. POOR PO INTAKE, TEA COLORED URINE. INDEPENDENT IN THE ROOM. SPIKED FEVER. DR. VANG NOTIFIED. START TYLENOL AND ORDER BLOOD CULTURES
[2022-11-10 16:39] VITALS: BP 153/101
--- NOTE | 2022-11-10 16:59 | NUR ---
PT REPORTS BOWEL SCHEDULE IS NOT REGULAR FOR HIM. HE IS UNSURE OF THE LAST BM DATE. DR VANG NOTIFIED. XR OF ABDOMEN ORDERED.
[2022-11-10 19:24] VITALS: BP 100/66
[2022-11-11 03:24] VITALS: BP 113/67
--- NOTE | 2022-11-11 04:31 | NUR ---
PATIENT A/OX4, UP INDEPENDENTLY IN ROOM. SLEPT WELL THROUGH THE NIGHT. VSS, AFEBRILE THIS SHIFT. NO EMESIS, DENIES ANY NAUSEA. RECEIVING REGLAN Q6. NS CONTINUES AT 100ML/HR. PATIENT USING URINAL TO VOID. SKIN INTACT. NO NEW CONCERNS OVERNIGHT.
[2022-11-11 05:58] LABS: BASOPHILS ABSOLUTE AUTO 0.04 K/mm3 (0.00-0.23); BASOPHILS PERCENT AUTO 0 % (0-2); EOSINOPHILS ABSOLUTE AUTO 0.02 K/mm3 (0.00-0.68); EOSINOPHILS PERCENT AUTO 0 % (0-6); Hematocrit 37.3 % (37.0-53.0); Hemoglobin 13.1 g/dL (13.5-17.5); IMMATURE GRAN ABSOLUTE AUTO 0.03 K/mm3 (0.00-0.10); IMMATURE GRAN PERCENT AUTO 0 % (0-1); LYMPHOCYTES ABSOLUTE AUTO 3.31 K/mm3 (0.84-5.20); LYMPHOCYTES PERCENT AUTO 35 % (21-46); MONOCYTES ABSOLUTE AUTO 0.85 K/mm3 (0.16-1.47); MONOCYTES PERCENT AUTO 9 % (4-13); Mean Corpuscular HGB 30.5 pg (26.0-34.0); Mean Corpuscular HGB Conc 35.1 g/dL (31.5-36.5); Mean Platelet Volume 11.1 fL (9.1-12.4); NEUTROPHILS PERCENT AUTO 55 % (41-73); Platelet Count 178 K/mm3 (150-400); RDW Coefficient Variation 13.1 % (11.7-14.2); RDW Standard Deviation 41.4 fL (35.1-46.3); White Blood Cell Count 9.45 K/mm3 (4.00-11.30)
[2022-11-11 05:59] LABS: Mean Corpuscular Volume 87 fL (80-100)
[2022-11-11 06:06] LABS: Bun/Creatinine Ratio 23.3 (12.0-20.0); Calcium, Blood 8.4 mg/dL (8.5-10.1); Creatinine, Blood 1.16 mg/dL (0.60-1.20); Potassium, Blood 3.8 mmol/L (3.5-5.5)
[2022-11-11 07:39] VITALS: BP 172/131
[2022-11-11] MEDS ORDERED: Bentyl10 MG PO (12:04)
[2022-11-11] MEDS ORDERED: ACET325 PO (12:08)
[2022-11-11] MEDS ORDERED: FAMO20 PO (12:09)
[2022-11-11] MEDS ORDERED: TRAZ50 PO (12:10)
--- NOTE | 2022-11-11 15:02 | NUR ---
DISCHARGE PT DISCHARGED HOME. DISCHARGE INSTRUCTIONS DISCUSSED WITH PT. EMPHASIZED THE IMPORTANCE OF TAKING PRESCRIBED MEDICIATONS TO HELP WITH NAUSEA. PT ALERT AND ORIENTED X4. NO QUESTIONS OR CONCERNS AT THIS TIME.
== END 2022-11-11 14:56 | disposition home or self-care (01) | DRG 683 ==
LOC: ER 20:51 → MEDS 20:52
PROVIDERS: Emergency Medicine; Internal Medicine; Student in an Organized Health Care Education/Training Program; ADMIT Internal Medicine
DX: N17.9 Acute kidney failure, unspecified (principal); E87.20 Acidosis, unspecified; R11.2 Nausea with vomiting, unspecified; F12.10 Cannabis abuse, uncomplicated; D72.829 Elevated white blood cell count, unspecified; E86.0 Dehydration; G47.00 Insomnia, unspecified; G89.29 Other chronic pain; N18.2 Chronic kidney disease, stage 2 (mild); K21.9 Gastro-esophageal reflux disease without esophagitis; I12.9 Hypertensive chronic kidney disease with stage 1 through stage 4 chronic kidney disease, or unspecified chronic kidney disease; Z88.0 Allergy status to penicillin; Z88.5 Allergy status to narcotic agent; Z71.51 Drug abuse counseling and surveillance of drug abuser; Z79.899 Other long term (current) drug therapy; Z87.19 Personal history of other diseases of the digestive system; Z87.11 Personal history of peptic ulcer disease; Z98.890 Other specified postprocedural states; Z87.891 Personal history of nicotine dependence
CPT/HCPCS: 36415; 74018; 80048; 80053; 81001; 83690; 85025; 87086; 96372; 96374; 96375; 96376; 99285-25; A9270; G0378; J1200; J1630; J1644; J2765; J3480; J7030

== ENCOUNTER 2022-11-12 11:51 | Emergency (ER) | payer OTHER ==
[~2022-11-12] VITALS: Ht 170.2 cm; Wt 63.0 kg
[~2022-11-12 11:51] MED LIST changes: +Bentyl10 MG PO; +FAMO20 PO; +TRAZ50 PO
[2022-11-12 12:40] LABS: BASOPHILS ABSOLUTE AUTO 0.02 K/mm3 (0.00-0.23); BASOPHILS PERCENT AUTO 0 % (0-2); EOSINOPHILS ABSOLUTE AUTO 0.01 K/mm3 (0.00-0.68); EOSINOPHILS PERCENT AUTO 0 % (0-6); Hematocrit 39.2 % (37.0-53.0); Hemoglobin 14.1 g/dL (13.5-17.5); IMMATURE GRAN ABSOLUTE AUTO 0.04 K/mm3 (0.00-0.10); IMMATURE GRAN PERCENT AUTO 1 % (0-1); LYMPHOCYTES ABSOLUTE AUTO 2.25 K/mm3 (0.84-5.20); LYMPHOCYTES PERCENT AUTO 27 % (21-46); MONOCYTES ABSOLUTE AUTO 0.91 K/mm3 (0.16-1.47); MONOCYTES PERCENT AUTO 11 % (4-13); Mean Corpuscular HGB 30.3 pg (26.0-34.0); Mean Corpuscular Volume 84 fL (80-100); Mean Platelet Volume 10.7 fL (9.1-12.4); NEUTROPHILS PERCENT AUTO 61 % (41-73); Platelet Count 204 K/mm3 (150-400); RDW Coefficient Variation 12.7 % (11.7-14.2); RDW Standard Deviation 38.4 fL (35.1-46.3); Red Blood Cell Count 4.66 M/mm3 (4.30-5.90); White Blood Cell Count 8.33 K/mm3 (4.00-11.30)
[2022-11-12 13:00] LABS: Albumin, Blood 4.3 g/dL (3.4-5.0); Albumin/Globulin Ratio 1.6 (0.8-1.8); Bilirubin, Total 1.4 mg/dL (0.1-1.0); Bun/Creatinine Ratio 15.1 (12.0-20.0); Calcium, Blood 9.4 mg/dL (8.5-10.1); Creatinine, Blood 1.19 mg/dL (0.60-1.20); Globulin, Blood 2.7 g/dL (2.2-4.0); Potassium, Blood 3.3 mmol/L (3.5-5.5)
[2022-11-12 14:00] VITALS: BP 150/103
== END 2022-11-12 14:12 | disposition home or self-care (01) ==
LOC: ER 11:51
PROVIDERS: Emergency Medicine
DX: R11.15 Cyclical vomiting syndrome unrelated to migraine (principal); F12.90 Cannabis use, unspecified, uncomplicated; Z88.0 Allergy status to penicillin; Z88.5 Allergy status to narcotic agent; Z79.899 Other long term (current) drug therapy; I10 Essential (primary) hypertension; K21.9 Gastro-esophageal reflux disease without esophagitis; Z87.891 Personal history of nicotine dependence
CPT/HCPCS: 80053; 83690; 85025; 96361; 96374; 96375; 99284-25; J1200; J1630; J2405; J7030

== ENCOUNTER 2023-01-26 08:55 | Inpatient (IN) | payer OTHER ==
[2023-01-26] VITALS (26 sets, daily range): BP systolic 150–184; BP diastolic 104–135
[~2023-01-26] VITALS: Ht 170.2 cm; Wt 57.0 kg
[2023-01-26 09:13] LABS: BASOPHILS ABSOLUTE AUTO 0.13 K/mm3 (0.00-0.23); BASOPHILS PERCENT AUTO 1 % (0-2); EOSINOPHILS ABSOLUTE AUTO 0.01 K/mm3 (0.00-0.68); EOSINOPHILS PERCENT AUTO 0 % (0-6); Hemoglobin 19.4 g/dL (13.5-17.5); IMMATURE GRAN ABSOLUTE AUTO 0.68 K/mm3 (0.00-0.10); IMMATURE GRAN PERCENT AUTO 3 % (0-1); LYMPHOCYTES ABSOLUTE AUTO 1.76 K/mm3 (0.84-5.20); LYMPHOCYTES PERCENT AUTO 7 % (21-46); MONOCYTES ABSOLUTE AUTO 1.31 K/mm3 (0.16-1.47); MONOCYTES PERCENT AUTO 5 % (4-13); Mean Corpuscular HGB 30.1 pg (26.0-34.0); Mean Corpuscular HGB Conc 34.3 g/dL (31.5-36.5); Mean Corpuscular Volume 88 fL (80-100); Mean Platelet Volume 11.2 fL (9.1-12.4); NEUTROPHILS ABSOLUTE AUTO 21.34 K/mm3 (1.96-9.15); NEUTROPHILS PERCENT AUTO 85 % (41-73); Platelet Count 375 K/mm3 (150-400); RDW Coefficient Variation 13.9 % (11.7-14.2); RDW Standard Deviation 42.9 fL (35.1-46.3); Red Blood Cell Count 6.44 M/mm3 (4.30-5.90); White Blood Cell Count 25.23 K/mm3 (4.00-11.30)
[2023-01-26 09:15] LABS: Hematocrit 56.6 % (37.0-53.0)
[2023-01-26 09:50] LABS: Albumin, Blood 5.6 g/dL (3.4-5.0); Albumin/Globulin Ratio 1.1 (0.8-1.8); Bilirubin, Direct 0.2 mg/dL (0.0-0.3); Bilirubin, Indirect 0.8 mg/dL (0.1-0.7); Bun/Creatinine Ratio 7.6 (12.0-20.0); Calcium, Blood 10.3 mg/dL (8.5-10.1); Creatinine, Blood 5.68 mg/dL (0.60-1.20); Globulin, Blood 5.1 g/dL (2.2-4.0); Magnesium, Blood 2.6 mg/dL (1.6-2.4); Potassium, Blood 3.9 mmol/L (3.5-5.5); Total Protein, Blood 10.7 g/dL (6.4-8.2)
[2023-01-26 12:13] LABS: Base Excess Venous -9.2 mmol/L; Bicarbonate Venous 17.9 mmol/L (24.0-30.0); PCO2 Venous 35.6 mmHg (38-42)
[2023-01-26 15:01] LABS: Bun/Creatinine Ratio 10.4 (12.0-20.0); Calcium, Blood 8.1 mg/dL (8.5-10.1); Creatinine, Blood 4.14 mg/dL (0.60-1.20); Potassium, Blood 4.2 mmol/L (3.5-5.5)
[2023-01-26 15:47] LABS: Adenovirus Not Detected (NOT DETECT); Bordetella pertussis Not Detected (NOT DETECT); Chlamydophila pneumoniae Not Detected (NOT DETECT); Coronavirus 229E Not Detected (NOT DETECT); Coronavirus HKU1 Not Detected (NOT DETECT); Coronavirus NL63 Not Detected (NOT DETECT); Coronavirus OC43 Not Detected (NOT DETECT); Human Metapneumovirus Not Detected (NOT DETECT); Human Rhinovirus/Enterovirus Not Detected (NOT DETECT); Influenza A/2009-H1 Not Detected (NOT DETECT); Influenza A/H1 Not Detected (NOT DETECT); Influenza A/H3 Not Detected (NOT DETECT); Influenza B Not Detected (NOT DETECT); Mycoplasma pneumoniae Not Detected (NOT DETECT); Parainfluenza Virus 1 Not Detected (NOT DETECT); Parainfluenza Virus 2 Not Detected (NOT DETECT); Parainfluenza Virus 3 Not Detected (NOT DETECT); Parainfluenza Virus 4 Not Detected (NOT DETECT); Respiratory Syncytial Virus Not Detected (NOT DETECT); SARS-Cov-2 (COVID-19), BioFire Not Detected (NOT DETECT)
[2023-01-26 18:31] LABS: Bun/Creatinine Ratio 14.3 (12.0-20.0); Calcium, Blood 8.3 mg/dL (8.5-10.1); Creatinine, Blood 3.07 mg/dL (0.60-1.20); Potassium, Blood 4.1 mmol/L (3.5-5.5)
[2023-01-26 18:38] LABS: Source, Urine Clean Catch
--- NOTE | 2023-01-26 18:46 | NUR ---
Summary. Pt arrive to ICU at 1410 via bed. Report received from TROUBLE OPERATOR. Pt sleepy and nauseous but arousable and oriented. Medicated with PRN anti-emetics, fluids started. Pt in bed for remainder of shift. NS infusing at 150 ml/hr. No acute events during shift. See chart for further details. Will report off to nightshift RN.
[2023-01-26 18:55] LABS: Appearance, Urine Clear (Clear); Bilirubin, Urine Neg (Neg); Blood, Urine 4+ (Neg); Color, Urine Yellow (P-Yellow); Glucose Qualitative, Urine 3+ (Neg); Ketones, Urine 1+ (Neg); Leukocyte Esterase, Urine Neg (Neg); Nitrite, Urine Neg (Neg); Protein, Urine 2+ (Neg); Specific Gravity, Urine 1.025 (1.003-1.022); Urobilinogen, Urine NORM (Normal)
[2023-01-26 18:59] LABS: BASOPHILS ABSOLUTE AUTO 0.02 K/mm3 (0.00-0.23); BASOPHILS PERCENT AUTO 0 % (0-2); EOSINOPHILS ABSOLUTE AUTO 0.01 K/mm3 (0.00-0.68); EOSINOPHILS PERCENT AUTO 0 % (0-6); Hematocrit 42.4 % (37.0-53.0); Hemoglobin 15.4 g/dL (13.5-17.5); IMMATURE GRAN ABSOLUTE AUTO 0.09 K/mm3 (0.00-0.10); IMMATURE GRAN PERCENT AUTO 1 % (0-1); LYMPHOCYTES ABSOLUTE AUTO 1.03 K/mm3 (0.84-5.20); LYMPHOCYTES PERCENT AUTO 6 % (21-46); MONOCYTES ABSOLUTE AUTO 1.03 K/mm3 (0.16-1.47); MONOCYTES PERCENT AUTO 6 % (4-13); Mean Corpuscular HGB 30.2 pg (26.0-34.0); Mean Corpuscular HGB Conc 36.3 g/dL (31.5-36.5); Mean Platelet Volume 10.8 fL (9.1-12.4); NEUTROPHILS ABSOLUTE AUTO 14.76 K/mm3 (1.96-9.15); NEUTROPHILS PERCENT AUTO 87 % (41-73); Platelet Count 238 K/mm3 (150-400); RDW Coefficient Variation 13.2 % (11.7-14.2); RDW Standard Deviation 40.1 fL (35.1-46.3); White Blood Cell Count 16.94 K/mm3 (4.00-11.30)
[2023-01-26 18:59] LABS: Bacteria Many /hpf; Hyaline Casts 25-50 /lpf (0-2); Squamous Epithelial Cells Rare /hpf (Few)
[2023-01-26 19:00] LABS: Mucus Mod (0-Heavy)
[2023-01-26 19:02] LABS: Mean Corpuscular Volume 83 fL (80-100)
--- NOTE | 2023-01-26 21:04 | NUR ---
TRANSFER NOTE/ASSUMPTION OF CARE THIS RN RECEIVED REPORT FROM SERGIO ECHEVERRIA IN THE ICU. PT TRANSFERRED TO PCU 14 AT 1915. PT LETHARGIC AND ORIENTED X4. PALE AND DIAPHORETIC. TEMP OF 100.0 UPON ARRIVAL. HTN NOTED; SBP 160'S. SR/ST ON MONITOR WITH HR 90-110'S. MANAGER [facility] ([facility]) CALLED THIS RN NOTING ST ELEVATION ALARM ON TELE AROUND 1999. EKG RECEIVED. THIS RN CALLED MD FINE. MD FINE TO UNIT TO LOOK AT EKG. MD FINE WITH ORDERS TO ADD TROPONIN ONTO LAB WORK SCHEDULED FOR 2199 AND THEN REPEAT AFTER 3HRS. ORDERS PLACED. PT DENIES CHEST PAIN/PRESSURE. HICCUPS NOTED OCCASIONALLY. DENIES NAUSEA AT THIS TIME. ON RA WITH SPO2 >92%. BED IN LOWEST POSITION AND CALL LIGHT WITHIN REACH.
[2023-01-26 22:08] LABS: Bun/Creatinine Ratio 16.1 (12.0-20.0); Creatinine, Blood 2.54 mg/dL (0.60-1.20); Magnesium, Blood 1.9 mg/dL (1.6-2.4); Phosphorus, Blood 3.2 mg/dL (2.5-4.9); Potassium, Blood 4.1 mmol/L (3.5-5.5)
[2023-01-26 23:45] LABS: Anti-Xa UFH, PHA Monitoring <0.10 IU/mL; International Normalized Ratio 1.09; Prothrombin Time Results 11.4 Sec (9.7-11.5)
[2023-01-27] VITALS (13 sets, daily range): BP systolic 106–175; BP diastolic 80–132
[2023-01-27] LABS: U Amphetamine Screen Not Detected; U Barbituate Screen Not Detected; U Benzodiazapine Screen Not Detected; U Buprenorphine Screen Not Detected; U Cannabinoids Screen DETECTED; U Cocaine Screen Not Detected; U Methadone Screen Not Detected; U Methamphetamine Screen Not Detected; U Opiates Screen Not Detected; U Oxycodone Screen Not Detected; U Phencyclidine Screen Not Detected
--- NOTE | 2023-01-27 00:24 | NUR ---
PATIENT UPDATE MD FINE NOTIFIED OF TROPONIN OF 1446. ORDER TO REPEAT EKG. EKG REPEATED AND MD FINE NOTIFIED. MD FINE UNABLE TO SEE EKG AT THIS TIME, MD TYLER NOTIFIED AND SAW NEW EKG. MD TYLER WITH NEW ORDERS, SEE CHART AND EMAR. PT CONTINUES TO DENY CHEST PAIN/PRESSURE. PT WAS MEDICATED PER EMAR FOR NAUSEA PRIOR TO PLAVIX/ASPIRIN/LIPITOR; PT VOMITED PILLS. NOTIFIED; MD WITH ORDERS TO ONLY START HEP GTT. MONITORING VIA TELEMETRY FOR WORSENING ST ELEVATION. MD TYLER NOTIFIED FOR HTN WITH SBP 170'S; ORDER FOR IV HYDRALAZINE. ST ON MONITOR WITH HR 100-110'S. SBP NOW 120'S APPROX 20 MINUTES AFTER HYDRALAZINE. WILL CONTINUE TO CYCLE BP AND MONITOR. PT CONTINUES TO BE LETHARGIC, BUT IS AROUSED EASILY AND ANSWERS ALL QUESTIONS APPROPRIATELY. BED IN LOWEST POSITION AND CALL LIGHT WITHIN REACH.
[2023-01-27 02:29] LABS: Bun/Creatinine Ratio 18.8 (12.0-20.0); Calcium, Blood 8.2 mg/dL (8.5-10.1); Creatinine, Blood 2.07 mg/dL (0.60-1.20)
--- NOTE | 2023-01-27 04:50 | NUR ---
SHIFT SUMMARY SEE PREVIOUS NOTES REGARDING ACUTE CHANGES OVERNIGHT. MD AWARE OF ST ELEVATION. CONTINUES TO DENY CHEST PAIN/PRESSURE AND SOB. INTERMITTENT NAUSEA AND HICCUPS NOTED; MEDICATING PER EMAR WITH ANTIEMETICS. VITALS REMAIN UNCHANGED SINCE PREVIOUS NOTE. PT REPOSITIONING SELF IN BED. USING URINAL INDEPENDENTLY. HEP GTT AND NS INFUSING PER EMAR. PT CONTINUES TO BE NPO. THIS RN CALLED IN CARDIOLOGY CONSULT TO ANSWERING SERVICE. BED IN LOWEST POSITION AND CALL LIGHT WITHIN REACH. THIS RN WILL REPORT TO ONCOMING DAYSHIFT RN.
[2023-01-27 06:39] LABS: Calcium, Blood 8.2 mg/dL (8.5-10.1); Creatinine, Blood 1.65 mg/dL (0.60-1.20); Magnesium, Blood 2.1 mg/dL (1.6-2.4); Phosphorus, Blood 2.6 mg/dL (2.5-4.9); Potassium, Blood 3.7 mmol/L (3.5-5.5)
--- NOTE | 2023-01-27 07:32 | NUR ---
ASSUMED CARE PATIENT IS LYING IN BED WITH EYES CLOSED. NO FAMILY OR VISITORS AT BEDSIDE. ROOM AIR WITH SPO2 MID TO HIGH 90'S. MONITOR SHOWS SINUS RHYTHM WITH RATE 80'S. BP STABLE. DENIES PAIN BUT C/O NAUSEA. HICCUPS PRESENT. URINAL AT BEDSIDE. HEPARIN INF @ 15 UNITS/KG/HR AND NS @ 150ML/HR. BEDSIDE REPORT COMPLETED WITH JACKI HUGHES.
--- NOTE | 2023-01-27 07:33 | NUR ---
TROPONIN 654 CRITICAL TROPONIN RECEIVED OF 654. IMPROVED FROM 1446. CHARGE NURSE NOTIFIED. NO CALL TO MD D/T EXPECTED TREND. PATIENT DENIES CP AT THIS TIME.
--- NOTE | 2023-01-27 07:55 | NUR ---
HTN PATIENT BP 172/110 MAP 130. PATIENT DENIES PAIN, BUT C/O NAUSEA. NO VOMITING THIS AM. CALL MADE TO DR. VANG AND AWAITING ORDERS FOR BP.
--- NOTE | 2023-01-27 09:45 | NUR ---
SAUMYA VANG AT BEDSIDE TO RE-EVALUATE PATIENT. BP REMAINS HIGH WITH SBP GREATER THAN 160. VERBAL ORDER RECEIVED FROM DR. VANG TO RESTART PATIENT'S HOME AMLODIPINE 5MG PO BID STARTING NOW.
--- NOTE | 2023-01-27 11:15 | NUR ---
AMELIELAZINE/DR. GUADALUPE ROUNDING DR. GUADALUPE AT BEDSIDE TO EVALUATE PATIENT. ORDERS RECEIVED TO STOP HEPARIN GTT PATIENT WILL NOT BE REQUIRING RETAIL PRESENTATION SPECIALIST. PATIENT BP REMAINS HIGH AT 157/119. CALL MADE TO DR. VANG TO UPDATE ON THE ABOVE AND BLOOD PRESSURE. VERBAL ORDER RECEIVED FOR HYDRALAZINE 10MG PO Q6P, ADA DIET, AND STATUS CHANGE TO MEDICAL STATUS WITHOUT TELEMETRY.
[2023-01-27 12:24] LABS: Bun/Creatinine Ratio 18.9 (12.0-20.0); Creatinine, Blood 1.32 mg/dL (0.60-1.20); Potassium, Blood 3.6 mmol/L (3.5-5.5)
--- NOTE | 2023-01-27 13:46 | NUR ---
HANDOFF BEDSIDE REPORT GIVEN TO JACKI SAUCEDO. PATIENT STILL HAS NS @ 150ML/HR INF. CURRENTLY C/O NAUSEA. NO VOMITING THIS SHIFT. NO FAMILY AT BEDSIDE. MINIMAL PO INTAKE. ONE BM THIS SHIFT.
--- NOTE | 2023-01-27 14:51 | NUR ---
ASSUMED CARE OF THIS PT AT 1400, REPORT RECEIVED FROM GWEN ECHEVERRIA. PT STILL FEELING NAUSEATED, COMPANZINE IV GIVEN, NO EMESIS. PT HICCUPS STILL PRESENT. PT DENEIS PAIN/DISCOMFORT, NO OTHER ISSUES REPORTED AT THIS TIME. WILL CONTINUE TO MONITOR
--- NOTE | 2023-01-27 17:48 | NUR ---
PT SUMMARY: NO ACUTE CHANGE SINCE TRANSFER OF CARE. PT STARTED ON COREG 12.5MG SBP REMAINS >140 MAP >100. NO NAUSEA AT AT THIS TIME, REFUSED DINNER. STILL HAS HICCUPS. PT HAS BEEN USING THE URINAL TO VOID, REQUESTING A SHOWER TONIGHT. NO OTHER ISSUES ENCOUNTERED, CALLS APPROPRIATELY, WILL REPORT TO ONCOMING SHIFT
[2023-01-28 04:29] LABS: Bun/Creatinine Ratio 18.6 (12.0-20.0); Calcium, Blood 8.6 mg/dL (8.5-10.1); Creatinine, Blood 0.97 mg/dL (0.60-1.20); Potassium, Blood 3.6 mmol/L (3.5-5.5)
[2023-01-28 05:07] VITALS: BP 168/101
--- NOTE | 2023-01-28 05:22 | NUR ---
SHIFT SUMMARY. SHIFT HAS BEEN MOSTLY UNREMARKABLE. PT AOX4, COOPERATIVE WITH CAR.E SOMEWHAT FLAT DEMEANOR. USES CALL LIGHT APPROPRIATELY. FLUIDS RUNNING THROUGHOUT SHIFT. SBA TO BATHROOM. SOME SPORADIC N/V THAT HAS THUS FAR BEEN WELL MANAGED VIA COMPAZINE AND REGLAN. MILDLY ELEVATED BP THIS MORNING, PO HYDRALAZINE ADMINISTERED FOR MANAGEMENT. NO PAIN REPORTED THIS SHIFT. PT HAS BEEN SATTING WELL THROUGHOUT SHIFT ON ROOM AIR. NO TELE. BED LOCKED IN LOWEST POSITION. CALL LIGHT LEFT WITHIN REACH.
[2023-01-28 07:34] VITALS: BP 168/116
[2023-01-28] MEDS ORDERED: Carvedilol12.5 MG PO (09:36)
[2023-01-28] MEDS ORDERED: ASPI81CH PO (09:36)
[2023-01-28] MEDS ORDERED: LOSA25 PO (09:36)
[2023-01-28 10:01] VITALS: BP 153/119
[2023-01-28 10:03] VITALS: BP 155/117
--- NOTE | 2023-01-28 10:25 | NUR ---
PT DISCHARGE TO HOME TODAY WITH DISCHARGE ORDERS. PT HAD NUASEA WITH EMESIS X1 THIS MORNING MEDICATED WITH COMPAZINE, TOLERATED SOME OF BREAKFAST, ALL MEDS GIVEN PT ABLE TO KEEP IT DOWN. VITALS STABLE PT SBP STILL ELEVATED AT 150'S PT STARTED ON LOSARTAN 25MG THIS MORNING, PT INSTRUCTED TO MONITOR BP AT HOME BEFORE TAKING BLOOD PRESSURE MEDS, DISCLOSED ALL DISCHARGE INFORMATION AND INSRUCTIONS, PT VERBALIZED UNDERSTANDING. MOM CALLED AND MADE AWARE OF PT'S DISCHARGE PLAN, PT ACCOMPANIED VIA WHEELCHAIR FOR DISCHARGE, MOM OF THE PT PROVIDED TRANSPORTATION, MIKE BELONGINGS SENT WITH THE PT
== END 2023-01-28 10:18 | disposition home or self-care (01) | DRG 682 ==
LOC: ER 08:55 → ICUE 12:54 → PCU 12:54 → ICUE 14:18 → PCU 19:33
PROVIDERS: Internal Medicine; Student in an Organized Health Care Education/Training Program; ADMIT Internal Medicine
DX: N17.9 Acute kidney failure, unspecified (principal); I21.A1 Myocardial infarction type 2; E87.20 Acidosis, unspecified; N18.2 Chronic kidney disease, stage 2 (mild); E11.65 Type 2 diabetes mellitus with hyperglycemia; I12.9 Hypertensive chronic kidney disease with stage 1 through stage 4 chronic kidney disease, or unspecified chronic kidney disease; E86.0 Dehydration; K21.9 Gastro-esophageal reflux disease without esophagitis; D75.1 Secondary polycythemia; F12.90 Cannabis use, unspecified, uncomplicated; E11.22 Type 2 diabetes mellitus with diabetic chronic kidney disease; R06.6 Hiccough; Z88.0 Allergy status to penicillin; Z88.5 Allergy status to narcotic agent; Z79.899 Other long term (current) drug therapy; Z87.19 Personal history of other diseases of the digestive system; Z87.11 Personal history of peptic ulcer disease; Z98.890 Other specified postprocedural states; Z87.891 Personal history of nicotine dependence
CPT/HCPCS: 0202U; 36415; 76770; 80048; 80076; 81001; 82010; 82803; 82947; 83036; 83690; 83735; 83880; 84100; 84484; 85025; 85520; 85610; 85730; 87086; 93005; 93010; 93306; 94760; 96361; 96365; 96366; 96375; 99285-25; A9270; C9113; J0360; J0780; J1644; J1790; J1885; J2765; J3480; J7030; J7120

== ENCOUNTER 2023-02-19 16:41 | Emergency (ER) | payer OTHER ==
[~2023-02-19] VITALS: Ht 170.2 cm; Wt 62.6 kg
[~2023-02-19 16:41] MED LIST changes: +ASPI81CH PO; +Carvedilol12.5 MG PO; +LOSA25 PO
[2023-02-19 17:42] LABS: BASOPHILS ABSOLUTE AUTO 0.05 K/mm3 (0.00-0.23); BASOPHILS PERCENT AUTO 0 % (0-2); EOSINOPHILS PERCENT AUTO 0 % (0-6); Hematocrit 52.5 % (37.0-53.0); Hemoglobin 18.1 g/dL (13.5-17.5); IMMATURE GRAN ABSOLUTE AUTO 0.12 K/mm3 (0.00-0.10); IMMATURE GRAN PERCENT AUTO 1 % (0-1); LYMPHOCYTES ABSOLUTE AUTO 1.63 K/mm3 (0.84-5.20); LYMPHOCYTES PERCENT AUTO 12 % (21-46); MONOCYTES PERCENT AUTO 6 % (4-13); Mean Corpuscular HGB 29.6 pg (26.0-34.0); Mean Corpuscular HGB Conc 34.5 g/dL (31.5-36.5); Mean Corpuscular Volume 86 fL (80-100); Mean Platelet Volume 10.8 fL (9.1-12.4); NEUTROPHILS ABSOLUTE AUTO 11.29 K/mm3 (1.96-9.15); NEUTROPHILS PERCENT AUTO 81 % (41-73); Platelet Count 332 K/mm3 (150-400); RDW Coefficient Variation 13.6 % (11.7-14.2); RDW Standard Deviation 42.5 fL (35.1-46.3); Red Blood Cell Count 6.11 M/mm3 (4.30-5.90); White Blood Cell Count 13.99 K/mm3 (4.00-11.30)
[2023-02-19 18:04] LABS: Albumin, Blood 5.4 g/dL (3.4-5.0); Albumin/Globulin Ratio 1.4 (0.8-1.8); Bilirubin, Total 1.1 mg/dL (0.1-1.0); Bun/Creatinine Ratio 13.6 (12.0-20.0); Calcium, Blood 11.4 mg/dL (8.5-10.1); Creatinine, Blood 2.2 mg/dL (0.60-1.20); Potassium, Blood 4.4 mmol/L (3.5-5.5); Total Protein, Blood 9.4 g/dL (6.4-8.2)
[2023-02-19] MEDS ORDERED: PROM12.5S PR (22:26)
[2023-02-19 22:30] VITALS: BP 174/113
== END 2023-02-19 23:00 | disposition home or self-care (01) ==
LOC: ER 16:41
PROVIDERS: Physician Assistant
DX: K52.9 Noninfective gastroenteritis and colitis, unspecified (principal); N17.9 Acute kidney failure, unspecified; R00.0 Tachycardia, unspecified; I10 Essential (primary) hypertension; Z88.0 Allergy status to penicillin; Z88.5 Allergy status to narcotic agent; Z79.82 Long term (current) use of aspirin; Z79.899 Other long term (current) drug therapy; Z87.891 Personal history of nicotine dependence
CPT/HCPCS: 74176; 80053; 83690; 85025; 93005; 93010; 96361; 96374; 96375; 99285-25; J1790; J1885; J2405; J7030

== ENCOUNTER 2023-02-23 14:57 | Observation (INO) | payer OTHER ==
[~2023-02-23] VITALS: Ht 167.6 cm; Wt 57.2 kg
[2023-02-23 16:16] LABS: BASOPHILS ABSOLUTE AUTO 0.04 K/mm3 (0.00-0.23); BASOPHILS PERCENT AUTO 0 % (0-2); EOSINOPHILS ABSOLUTE AUTO 0.01 K/mm3 (0.00-0.68); EOSINOPHILS PERCENT AUTO 0 % (0-6); Hematocrit 45.7 % (37.0-53.0); Hemoglobin 16.7 g/dL (13.5-17.5); IMMATURE GRAN ABSOLUTE AUTO 0.12 K/mm3 (0.00-0.10); IMMATURE GRAN PERCENT AUTO 1 % (0-1); LYMPHOCYTES ABSOLUTE AUTO 2.75 K/mm3 (0.84-5.20); LYMPHOCYTES PERCENT AUTO 18 % (21-46); MONOCYTES ABSOLUTE AUTO 1.97 K/mm3 (0.16-1.47); MONOCYTES PERCENT AUTO 13 % (4-13); Mean Corpuscular HGB 30.2 pg (26.0-34.0); Mean Corpuscular HGB Conc 36.5 g/dL (31.5-36.5); Mean Corpuscular Volume 83 fL (80-100); Mean Platelet Volume 11.6 fL (9.1-12.4); NEUTROPHILS ABSOLUTE AUTO 10.65 K/mm3 (1.96-9.15); NEUTROPHILS PERCENT AUTO 68 % (41-73); Platelet Count 265 K/mm3 (150-400); RDW Coefficient Variation 13.1 % (11.7-14.2); RDW Standard Deviation 38.9 fL (35.1-46.3); Red Blood Cell Count 5.53 M/mm3 (4.30-5.90); White Blood Cell Count 15.54 K/mm3 (4.00-11.30)
[2023-02-23 16:26] LABS: Albumin, Blood 4.5 g/dL (3.4-5.0); Albumin/Globulin Ratio 1.2 (0.8-1.8); Bilirubin, Total 1.5 mg/dL (0.1-1.0); Bun/Creatinine Ratio 18.1 (12.0-20.0); Calcium, Blood 9.4 mg/dL (8.5-10.1); Creatinine, Blood 2.71 mg/dL (0.60-1.20); Globulin, Blood 3.6 g/dL (2.2-4.0); Potassium, Blood 3.2 mmol/L (3.5-5.5); Total Protein, Blood 8.1 g/dL (6.4-8.2)
[2023-02-23 16:41] LABS: Base Excess Venous 2.7 mmol/L; Bicarbonate Venous 28.9 mmol/L (24.0-30.0); PCO2 Venous 21.7 mmHg (38-42); pH Blood Venous 7.65 (7.34-7.37)
[2023-02-23 20:00] VITALS: BP 154/108
--- NOTE | 2023-02-23 20:24 | NUR ---
HOSPITALIST CONTACTED. CONTACETED FOR PATIENTS B/P OF 154/108- ORDERED FOR A ONE TIME DOES OF HYDRALAZINE 10MG IV-SEE ORDER. NOTIFIED OF PATIENTS DARK COLORED URINE W/PAIN UPON URINATION- ORDERED FOR A UA W/CULTURE IF INDICATED.
--- NOTE | 2023-02-23 22:47 | NUR ---
NEW ADMIT. PATIENT ARRIVED TO ROOM 304 FROM THE ER VIA GURNEY AND 1P ASSIST. PATIENT ABLE TO SELF TRANSFER FROM RCAPTIVA TO BED. PATIENT CAME UP TO FLOOR WITH FLUIDS NOT RUNNING. PATIENT ON RA AT TIME OF ARRIVAL. PATIENTS GAIT STEADY UPON TRANSFER.
[2023-02-23 23:13] VITALS: BP 115/98
--- NOTE | 2023-02-23 23:26 | NUR ---
PATIENT IN SINUS TACH-PULSE RUNNING IN THE ONE TEENS W/JUMPS INTO THE 130'S/140'S FOR APPROX 20'S BEFORE RETURNING BACK INTO THE ONE TEENS.
[2023-02-24 00:58] VITALS: BP 139/90
--- NOTE | 2023-02-24 01:02 | NUR ---
HOSPITALIST CONTACTED. HOSPITALIST NOTIFIED OF PATIENTS PULSE-PULSE IS SUSTAINING IN THE 130'S MOST RECENT PULSE READING 135 AT 0058. STATED HE WILL PUT IN ORDER.
[2023-02-24 01:33] VITALS: BP 150/90
[2023-02-24 03:54] VITALS: BP 128/92
[2023-02-24 04:17] LABS: Source, Urine Clean Catch
[2023-02-24 04:23] LABS: Bilirubin, Urine Neg (Neg); Blood, Urine 1+ (Neg); Glucose Qualitative, Urine Neg (Neg); Ketones, Urine 1+ (Neg); Leukocyte Esterase, Urine Neg (Neg); Nitrite, Urine Neg (Neg); Protein, Urine 2+ (Neg); Specific Gravity, Urine 1.025 (1.003-1.022); Urobilinogen, Urine NORM (Normal)
[2023-02-24 04:34] LABS: Appearance, Urine Clear (Clear); Color, Urine Yellow (P-Yellow); Red Blood Cells, Urine 0-2 /hpf (0-2); Squamous Epithelial Cells Not Seen /hpf (Few); White Blood Cells, Urine Not Seen /hpf (0-5)
[2023-02-24 04:35] LABS: Amorphous Mod (0-Heavy); Bacteria Rare /hpf
[2023-02-24 04:36] LABS: Mucus Light (0-Heavy)
[2023-02-24 05:05] LABS: BASOPHILS ABSOLUTE AUTO 0.03 K/mm3 (0.00-0.23); BASOPHILS PERCENT AUTO 0 % (0-2); EOSINOPHILS ABSOLUTE AUTO 0.02 K/mm3 (0.00-0.68); EOSINOPHILS PERCENT AUTO 0 % (0-6); Hematocrit 39.2 % (37.0-53.0); IMMATURE GRAN ABSOLUTE AUTO 0.09 K/mm3 (0.00-0.10); IMMATURE GRAN PERCENT AUTO 1 % (0-1); LYMPHOCYTES ABSOLUTE AUTO 2.33 K/mm3 (0.84-5.20); LYMPHOCYTES PERCENT AUTO 17 % (21-46); MONOCYTES ABSOLUTE AUTO 1.36 K/mm3 (0.16-1.47); MONOCYTES PERCENT AUTO 10 % (4-13); Mean Corpuscular HGB Conc 35.7 g/dL (31.5-36.5); Mean Corpuscular Volume 84 fL (80-100); Mean Platelet Volume 11.8 fL (9.1-12.4); NEUTROPHILS ABSOLUTE AUTO 9.57 K/mm3 (1.96-9.15); NEUTROPHILS PERCENT AUTO 72 % (41-73); Platelet Count 226 K/mm3 (150-400); RDW Coefficient Variation 13.2 % (11.7-14.2); RDW Standard Deviation 40.4 fL (35.1-46.3); Red Blood Cell Count 4.67 M/mm3 (4.30-5.90)
[2023-02-24 05:50] LABS: Albumin, Blood 3.5 g/dL (3.4-5.0); Albumin/Globulin Ratio 1.2 (0.8-1.8); Bilirubin, Total 1.4 mg/dL (0.1-1.0); Bun/Creatinine Ratio 22.9 (12.0-20.0); Calcium, Blood 8.6 mg/dL (8.5-10.1); Creatinine, Blood 1.66 mg/dL (0.60-1.20); Globulin, Blood 2.9 g/dL (2.2-4.0); Potassium, Blood 3.4 mmol/L (3.5-5.5); Total Protein, Blood 6.4 g/dL (6.4-8.2)
--- NOTE | 2023-02-24 07:12 | NUR ---
SHIFT SUMMARY. PATIENT IS A/OX4, ABLE TO MAKE HIS NEEDS KNOWN, INDEPENDENT WITH URINAL. PATIENT HAS HAD HYPERTENSION EPISODES WITH TACHYCARDIA-SEE PREVIOUS NOTES-ASYMPTOMAIC. PATIENT DRY-AFTER IV FLUIDS PATIENTS BLADDER SCAN SHOWED ML OF FLUID IN BLADDER-HOSPITALIST NOTIFIED. PATIENT IS NPO-HOSPITALIST CHANGED ORDER TO ICE CHIPS OK W/NPO. PATIENT IS PLEASANT AND COOPERATIVE WITH CARE. BED IS LOCKED IN THE LOWEST POSITION WITH CALL LIGHT IN REACH.
[2023-02-24 07:21] VITALS: BP 145/107
--- NOTE | 2023-02-24 07:35 | NUR ---
CALL BLOOD PRESSURE 145/107. DR MARY CALLED AND NOTIFIED. TELEPHONE ORDER FOR 12.5MG COREG PO X 1 NOW READ BACK AND ENTERED INTO [employer].
[2023-02-24 09:54] VITALS: BP 131/101
--- NOTE | 2023-02-24 12:15 | NUR ---
DISCHARGE NOTE MR ROLLINS DENIED NAUSEA OR VOMITING THIS MORNING. HE SAID HE HAD SMALL AMOUNT OF DIARRHEA. GIVEN PO FLUIDS AND LIQUID DIET LUNCH ORDER ENTERED. DISCHARGE ORDER IN AND PT DID NOT WANT TO WAIT TO SEE IF HE TOLERATED HIS LUNCH BUT WAS EAGER TO GO HOME. HE ATE TWO YOGHURTS WITHOUT ANY N/V AND SAID HE FELT FINE. HE VERBALISED UNDERSTANDING OF WRITTEN AND VERBAL DISCHARGE INSTRUCTIONS. PIV X 2 AND TELEMETRY REMOVED PRIOR TO DISCHARGE. WHEELED OUT VIA WC WITH [facility]STER TO TRANSPORT HOME AT 1215. HE DENIED CONCERNS AT TIME OF DISCHARGE.
== END 2023-02-24 12:14 | disposition home or self-care (01) ==
LOC: ER 14:57 → MEDS 14:58 → ER 18:25 → MEDS 19:57
PROVIDERS: Emergency Medicine; ADMIT Internal Medicine
DX: N17.9 Acute kidney failure, unspecified (principal); R11.10 Vomiting, unspecified; E87.6 Hypokalemia; I10 Essential (primary) hypertension; K56.609 Unspecified intestinal obstruction, unspecified as to partial versus complete obstruction; K21.9 Gastro-esophageal reflux disease without esophagitis; F12.99 Cannabis use, unspecified with unspecified cannabis-induced disorder; I12.9 Hypertensive chronic kidney disease with stage 1 through stage 4 chronic kidney disease, or unspecified chronic kidney disease; N18.2 Chronic kidney disease, stage 2 (mild); Z88.5 Allergy status to narcotic agent; Z79.899 Other long term (current) drug therapy; Z87.891 Personal history of nicotine dependence
CPT/HCPCS: 36415; 76770; 80053; 81001; 82803; 83690; 83880; 85025; 93005; 93010; 96374; 96375; 96376; 99285-25; A9270; C9113; G0378; J0360; J1200; J1630; J1644; J2405; J3010; J3480; J7030; J7040; J7050

== ENCOUNTER 2023-02-25 10:21 | Emergency (ER) | payer OTHER ==
[~2023-02-25] VITALS: Ht 167.6 cm; Wt 72.6 kg
[2023-02-25 11:02] LABS: BASOPHILS ABSOLUTE AUTO 0.04 K/mm3 (0.00-0.23); BASOPHILS PERCENT AUTO 0 % (0-2); EOSINOPHILS ABSOLUTE AUTO 0.06 K/mm3 (0.00-0.68); EOSINOPHILS PERCENT AUTO 1 % (0-6); Hematocrit 40.7 % (37.0-53.0); Hemoglobin 14.2 g/dL (13.5-17.5); IMMATURE GRAN ABSOLUTE AUTO 0.08 K/mm3 (0.00-0.10); IMMATURE GRAN PERCENT AUTO 1 % (0-1); LYMPHOCYTES ABSOLUTE AUTO 2.28 K/mm3 (0.84-5.20); LYMPHOCYTES PERCENT AUTO 20 % (21-46); MONOCYTES ABSOLUTE AUTO 1.09 K/mm3 (0.16-1.47); MONOCYTES PERCENT AUTO 9 % (4-13); Mean Corpuscular HGB 30.1 pg (26.0-34.0); Mean Corpuscular HGB Conc 34.9 g/dL (31.5-36.5); Mean Corpuscular Volume 86 fL (80-100); Mean Platelet Volume 11.2 fL (9.1-12.4); NEUTROPHILS ABSOLUTE AUTO 8.03 K/mm3 (1.96-9.15); NEUTROPHILS PERCENT AUTO 69 % (41-73); Platelet Count 186 K/mm3 (150-400); RDW Coefficient Variation 13.1 % (11.7-14.2); RDW Standard Deviation 41.1 fL (35.1-46.3); Red Blood Cell Count 4.71 M/mm3 (4.30-5.90); White Blood Cell Count 11.58 K/mm3 (4.00-11.30)
[2023-02-25 11:21] LABS: Albumin, Blood 3.7 g/dL (3.4-5.0); Albumin/Globulin Ratio 1.2 (0.8-1.8); Bilirubin, Total 0.8 mg/dL (0.1-1.0); Bun/Creatinine Ratio 18.4 (12.0-20.0); Calcium, Blood 8.5 mg/dL (8.5-10.1); Creatinine, Blood 1.03 mg/dL (0.60-1.20); Globulin, Blood 3.2 g/dL (2.2-4.0); Total Protein, Blood 6.9 g/dL (6.4-8.2)
[2023-02-25 14:51] LABS: Source, Urine Clean Catch
[2023-02-25 15:14] LABS: Bilirubin, Urine Neg (Neg); Blood, Urine 2+ (Neg); Color, Urine Yellow (P-Yellow); Glucose Qualitative, Urine 2+ (Neg); Ketones, Urine 2+ (Neg); Leukocyte Esterase, Urine Neg (Neg); Nitrite, Urine Neg (Neg); Protein, Urine 1+ (Neg); Urobilinogen, Urine NORM (Normal)
[2023-02-25 15:31] LABS: Appearance, Urine Hazy (Clear)
[2023-02-25 15:32] LABS: White Blood Cells, Urine 0-2 /hpf (0-5)
[2023-02-25 15:33] LABS: Bacteria Few /hpf; Mucus Mod (0-Heavy); Squamous Epithelial Cells Rare /hpf (Few)
[2023-02-25 16:00] VITALS: BP 175/118
== END 2023-02-25 16:00 | disposition home or self-care (01) ==
LOC: ER 10:21
PROVIDERS: Physician Assistant
DX: N50.811 Right testicular pain (principal); I10 Essential (primary) hypertension; Z88.0 Allergy status to penicillin; Z88.5 Allergy status to narcotic agent; Z87.891 Personal history of nicotine dependence
CPT/HCPCS: 76870; 80053; 81001; 85025; 96374; 96375; 99284-25; A9270; J1885; J2405

== ENCOUNTER 2023-03-19 09:23 | Day surgery (SDC) | payer OTHER ==
[~2023-03-19] VITALS: Ht 170.2 cm; Wt 60.9 kg
[2023-03-19] MEDS ORDERED: PANT40 (09:50)
[2023-03-19 12:37] VITALS: BP 132/98
== END 2023-03-19 12:37 | disposition home or self-care (01) ==
LOC: ORSCSDS 09:23
PROVIDERS: Specialist
PROC: 0DBL8ZX Excision of Transverse Colon, Via Natural or Artificial Opening Endoscopic, Diagnostic (ICD-10-PCS; principal; 2023-03-19 11:15)
DX: R93.3 Abnormal findings on diagnostic imaging of other parts of digestive tract (principal); D12.3 Benign neoplasm of transverse colon; K63.5 Polyp of colon; K64.8 Other hemorrhoids; N18.2 Chronic kidney disease, stage 2 (mild); Z87.891 Personal history of nicotine dependence; Z79.899 Other long term (current) drug therapy
CPT/HCPCS: 88305; J2704; J7120

== ENCOUNTER 2023-08-24 13:27 | Emergency (ER) | payer OTHER ==
[~2023-08-24] VITALS: Ht 170.2 cm; Wt 61.2 kg
[~2023-08-24 13:27] MED LIST changes: +AMLO10 PO; +LOSA50 PO; +PANT40 PO
[2023-08-24 14:11] LABS: BASOPHILS ABSOLUTE AUTO 0.03 K/mm3 (0.00-0.23); BASOPHILS PERCENT AUTO 0 % (0-2); EOSINOPHILS ABSOLUTE AUTO 0.01 K/mm3 (0.00-0.68); EOSINOPHILS PERCENT AUTO 0 % (0-6); Hematocrit 46.3 % (37.0-53.0); Hemoglobin 16.3 g/dL (13.5-17.5); IMMATURE GRAN ABSOLUTE AUTO 0.06 K/mm3 (0.00-0.10); IMMATURE GRAN PERCENT AUTO 1 % (0-1); LYMPHOCYTES ABSOLUTE AUTO 1.69 K/mm3 (0.84-5.20); LYMPHOCYTES PERCENT AUTO 19 % (21-46); MONOCYTES ABSOLUTE AUTO 1.01 K/mm3 (0.16-1.47); MONOCYTES PERCENT AUTO 12 % (4-13); Mean Corpuscular HGB Conc 35.2 g/dL (31.5-36.5); Mean Corpuscular Volume 85 fL (80-100); Mean Platelet Volume 10.7 fL (9.1-12.4); NEUTROPHILS ABSOLUTE AUTO 6.02 K/mm3 (1.96-9.15); NEUTROPHILS PERCENT AUTO 68 % (41-73); Platelet Count 244 K/mm3 (150-400); RDW Coefficient Variation 13.3 % (11.7-14.2); RDW Standard Deviation 41.1 fL (35.1-46.3); Red Blood Cell Count 5.44 M/mm3 (4.30-5.90); White Blood Cell Count 8.82 K/mm3 (4.00-11.30)
[2023-08-24 14:31] LABS: Albumin, Blood 4.8 g/dL (3.4-5.0); Albumin/Globulin Ratio 1.4 (0.8-1.8); Bilirubin, Total 1.5 mg/dL (0.1-1.0); Bun/Creatinine Ratio 8.3 (12.0-20.0); Calcium, Blood 10.8 mg/dL (8.5-10.1); Creatinine, Blood 1.8 mg/dL (0.60-1.20); Globulin, Blood 3.5 g/dL (2.2-4.0); Potassium, Blood 3.4 mmol/L (3.5-5.5); Total Protein, Blood 8.3 g/dL (6.4-8.2)
[2023-08-24] MEDS ORDERED: NS 1,000 ML IV SCH ×2 (16:30→18:00)
[2023-08-24] MEDS ORDERED: Droperidol 5 mg/2 ml Vial IV ONE (16:30)
[2023-08-24] MEDS ORDERED: Potassium Chl 20MEQ/Water100ML 100 ML IV ONE (16:35)
[2023-08-24] MEDS ORDERED: Ondansetron HCl 2 MG / ML 2ML Vial IV ONE (18:00)
[2023-08-24] MEDS ORDERED: DiphenhydrAMINE HCl 50 MG/ML 1ML Vial IV ONE (18:40)
[2023-08-24] MEDS ORDERED: Metoclopramide HCl 5MG / ML 2ML Vial IV ONE (18:40)
[2023-08-24 20:00] VITALS: BP 150/98
== END 2023-08-24 20:10 | disposition home or self-care (01) ==
LOC: ER 13:27
PROVIDERS: Nurse Practitioner
DX: R11.2 Nausea with vomiting, unspecified (principal); E87.6 Hypokalemia; Z87.891 Personal history of nicotine dependence; I10 Essential (primary) hypertension; K21.9 Gastro-esophageal reflux disease without esophagitis; Z79.899 Other long term (current) drug therapy; Z88.0 Allergy status to penicillin; Z88.5 Allergy status to narcotic agent
CPT/HCPCS: 80053; 83690; 83735; 85025; 93005; 93010; 96365; 96366; 96375; 99284-25; J1200; J1790; J2405; J2765; J3480; J7030

== ENCOUNTER 2023-08-25 16:56 | Inpatient (IN) | payer OTHER ==
[~2023-08-25] VITALS: Ht 170.2 cm; Wt 61.2 kg
[2023-08-25 17:46] LABS: BASOPHILS ABSOLUTE AUTO 0.02 K/mm3 (0.00-0.23); BASOPHILS PERCENT AUTO 0 % (0-2); EOSINOPHILS ABSOLUTE AUTO 0.01 K/mm3 (0.00-0.68); EOSINOPHILS PERCENT AUTO 0 % (0-6); Hematocrit 41.4 % (37.0-53.0); Hemoglobin 14.9 g/dL (13.5-17.5); IMMATURE GRAN ABSOLUTE AUTO 0.04 K/mm3 (0.00-0.10); IMMATURE GRAN PERCENT AUTO 0 % (0-1); LYMPHOCYTES ABSOLUTE AUTO 2.41 K/mm3 (0.84-5.20); LYMPHOCYTES PERCENT AUTO 23 % (21-46); MONOCYTES ABSOLUTE AUTO 1.18 K/mm3 (0.16-1.47); MONOCYTES PERCENT AUTO 11 % (4-13); Mean Corpuscular HGB 30.7 pg (26.0-34.0); Mean Corpuscular Volume 85 fL (80-100); Mean Platelet Volume 10.9 fL (9.1-12.4); NEUTROPHILS ABSOLUTE AUTO 7.06 K/mm3 (1.96-9.15); NEUTROPHILS PERCENT AUTO 66 % (41-73); Platelet Count 249 K/mm3 (150-400); RDW Coefficient Variation 13.5 % (11.7-14.2); RDW Standard Deviation 41.9 fL (35.1-46.3); Red Blood Cell Count 4.86 M/mm3 (4.30-5.90); White Blood Cell Count 10.72 K/mm3 (4.00-11.30)
[2023-08-25] MEDS ORDERED: Droperidol 5 mg/2 ml Vial IV ONE ×3 (17:50→23:25)
[2023-08-25] MEDS ORDERED: D5W-NS 1,000 ML IV SCH (17:50)
[2023-08-25] MEDS ORDERED: Famotidine 10 MG/ML 2ML Vial IV ONE ×2 (17:50→21:05)
[2023-08-25 18:17] LABS: Albumin, Blood 4.5 g/dL (3.4-5.0); Albumin/Globulin Ratio 1.5 (0.8-1.8); Bilirubin, Total 1.9 mg/dL (0.1-1.0); Bun/Creatinine Ratio 9.9 (12.0-20.0); Calcium, Blood 9.7 mg/dL (8.5-10.1); Creatinine, Blood 1.52 mg/dL (0.60-1.20); Globulin, Blood 3.1 g/dL (2.2-4.0); Potassium, Blood 3.6 mmol/L (3.5-5.5); Total Protein, Blood 7.6 g/dL (6.4-8.2)
[2023-08-25] MEDS ORDERED: Lactated Ringer's 1,000 ML IV ONE ×2 (19:00→23:10)
[2023-08-25 20:59] LABS: Source, Urine Clean Catch
[2023-08-25] MEDS ORDERED: Mag Hydrox/AL Hydrox/Simeth 30 ML UDC PO ONE ×2 (21:05→22:00)
[2023-08-25 21:06] LABS: Appearance, Urine Clear (Clear); Bilirubin, Urine Neg (Neg); Blood, Urine 2+ (Neg); Color, Urine Yellow (P-Yellow); Glucose Qualitative, Urine 4+ (Neg); Ketones, Urine Neg (Neg); Leukocyte Esterase, Urine Neg (Neg); Nitrite, Urine Neg (Neg); Protein, Urine 1+ (Neg); Urobilinogen, Urine NORM (Normal)
[2023-08-25 21:12] LABS: Bacteria Rare /hpf; Hyaline Casts 0-2 /lpf (0-2); Mucus Light (0-Heavy); Squamous Epithelial Cells Rare /hpf (Few); White Blood Cells, Urine 0-2 /hpf (0-5)
[2023-08-25] MEDS ORDERED: Metoclopramide HCl 5MG / ML 2ML Vial IV ONE (22:00)
[2023-08-26] MEDS ORDERED: Metoclopramide HCl 5MG / ML 2ML Vial IV PRN (00:15)
[2023-08-26] MEDS ORDERED: Acetaminophen 325 MG TABLET PO PRN (00:15)
[2023-08-26] MEDS ORDERED: Ondansetron HCl 2 MG / ML 2ML Vial IV PRN (00:15)
[2023-08-26] MEDS ORDERED: LOSA50 PO (00:27)
[2023-08-26 01:00] VITALS: BP 185/120
[2023-08-26] MEDS ORDERED: D5W-LR 1,000 ML IV SCH (01:00)
--- NOTE | 2023-08-26 01:04 | NUR ---
PT ARRIVED TO UNIT AT APPROXIMATELY 0055 FROM ER. TOLERATED STANDING AND WALKING TO BED FROM WHEELCHAIR WELL. PT SAID HE FEELS NAUSEOUS BUT HAS NOT ACTIVELY VOMITTED IN AWHILE. PT SAID HE DOES NOT FEEL LIKE HE NEEDS NAUSEA MEDICATION RIGHT NOW, THIS RN ASKED PT TO VERBALIZE WHEN HE FEELS THAT HE NEEDS MORE NAUSEA MEDICATION. PT STATED UNDERSTANDING. PT SAID HE FEELS THAT ZOFRAN WORKS BETTER TO CONTROL HIS NAUSEA THAN REGLAN DOES. PER REPORT FROM ER NURSE, PT HAS APT WITH [facility] IN [facility] ON SATURDAY 08/26 TO BE ASSESSED FOR HIS CONTINUOUS N/V AND ABD PAIN. LR RUNNING WIDE OPEN THAT WAS STARTED IN THE ER. PER ER NURSE, BP HAS BEEN TRENDING UP SINCE PT ARRIVED TO ER AND IS AWARE. NO ORDERS PLACED FOR ELEVATED BP PER ER NURSE. THIS RN GOT PT SETTLED WHILE PRIMARY NURSE AT BREAK. CALL LIGHT WITHIN REACH.
[2023-08-26 03:56] VITALS: BP 179/131
[2023-08-26 04:10] VITALS: BP 175/125
--- NOTE | 2023-08-26 04:17 | NUR ---
ASSUMED CARE OF PT WHILE PRIMARY RN ON BREAK. MEDICATED PT PER EMAR FOR NAUSEA. BP STILL ELEVATED. MANUAL BP TAKEN 160/122. CHARGE NURSE NOTIFIED AND WILL PASS ON TO PRIMARY NURSE TO CONSULT WITH MD. PT DENIES CHEST PAIN/PRESSURE, SOB, DIZZINESS, AND SANTANA. PT RESTING IN BED AND CALL LIGHT WITHIN REACH.
[2023-08-26 04:45] LABS: BASOPHILS ABSOLUTE AUTO 0.02 K/mm3 (0.00-0.23); BASOPHILS PERCENT AUTO 0 % (0-2); EOSINOPHILS PERCENT AUTO 0 % (0-6); Hematocrit 38.9 % (37.0-53.0); Hemoglobin 13.6 g/dL (13.5-17.5); IMMATURE GRAN ABSOLUTE AUTO 0.04 K/mm3 (0.00-0.10); IMMATURE GRAN PERCENT AUTO 0 % (0-1); LYMPHOCYTES ABSOLUTE AUTO 1.99 K/mm3 (0.84-5.20); LYMPHOCYTES PERCENT AUTO 21 % (21-46); MONOCYTES ABSOLUTE AUTO 1.06 K/mm3 (0.16-1.47); MONOCYTES PERCENT AUTO 11 % (4-13); Mean Corpuscular HGB 30.4 pg (26.0-34.0); Mean Corpuscular Volume 87 fL (80-100); Mean Platelet Volume 11.2 fL (9.1-12.4); NEUTROPHILS ABSOLUTE AUTO 6.53 K/mm3 (1.96-9.15); NEUTROPHILS PERCENT AUTO 68 % (41-73); Platelet Count 193 K/mm3 (150-400); RDW Coefficient Variation 13.5 % (11.7-14.2); RDW Standard Deviation 42.2 fL (35.1-46.3); Red Blood Cell Count 4.48 M/mm3 (4.30-5.90); White Blood Cell Count 9.64 K/mm3 (4.00-11.30)
[2023-08-26 05:08] LABS: Albumin, Blood 3.8 g/dL (3.4-5.0); Albumin/Globulin Ratio 1.3 (0.8-1.8); Bilirubin, Total 1.2 mg/dL (0.1-1.0); Bun/Creatinine Ratio 6.5 (12.0-20.0); Calcium, Blood 8.8 mg/dL (8.5-10.1); Creatinine, Blood 1.07 mg/dL (0.60-1.20); Globulin, Blood 2.9 g/dL (2.2-4.0); Potassium, Blood 2.9 mmol/L (3.5-5.5); Total Protein, Blood 6.7 g/dL (6.4-8.2)
[2023-08-26] MEDS ORDERED: Potassium Chloride 40 MEQ in NS 250 ML IV ONE ×2 (06:20→11:45)
[2023-08-26] MEDS ORDERED: Pantoprazole Sodium 40 MG Tab PO SCH (07:00)
[2023-08-26] MEDS ORDERED: Losartan Potassium 25 MG Tab PO SCH (07:00)
[2023-08-26] MEDS ORDERED: AmLODIPine Besylate 5 MG Tab PO SCH (07:00)
--- NOTE | 2023-08-26 07:41 | NUR ---
SHIFT SUMMARY PT ARRIVED TO ROOM 358 FROM ER VIA WHEELCHAIR. TRANSFERED HIMSELF TO HOSPITAL BED. CURRENTLY DENIES PAIN. HYPERTENSIVE 185/120, HR 92, AFEBRILE, ON RA. C/O NAUSEA, MEDICATED PER EMAR. ON A FULL LIQUID DIET. VOIDING ADEQUATE AMOUNTS OF CLEAR, LIGHT YELLOW URINE. ONE BM THIS SHIFT. SBA TO BR FOR LINE MANAGEMENT. REPOSITIONS SELF INDEPENDENTLY IN BED. BED IN LOWEST POSITION, CALL LIGHT WITHIN REACH.
[2023-08-26] MEDS ORDERED: Losartan Potassium 50 MG Tab PO SCH (08:00)
[2023-08-26 08:13] VITALS: BP 161/102
[2023-08-26] MEDS ORDERED: Enoxaparin 40 MG/0.4 ML SYR SC SCH (09:00)
[2023-08-26] MEDS ORDERED: NS 250 ML IV PRN (15:20)
--- NOTE | 2023-08-26 15:27 | NUR ---
SHIFT SUMMARY PT RESTING QUIETLY AT START OF SHIFT. WOKE EASILY FOR REPORT. PT ADMITTED FOR N/V, WHICH COMES AND GOES ALL DAY LONG. MEDICATED PER EMAR, BUT DOESN'T SEEM TO HAVE MUCH EFFECT. VOMITING EPISODES COME AND GO. PT TOLERATING SOME FOODS, OTHERS HE IS NOT. DECORATOR LIGHTING FIXTURES IN TO SEE PT AND DISCUSS PO INTAKE. NEW ORDERS PLACED. USING URINAL AT BS AND UP TO BTHRM FOR BM THIS AFTERNOON. PT HAS SLEPT MOST OF THE DAY. WAKES EASILY FOR CARE NEEDED. IV KCL INFUSED PER EMAR. ADDITIONAL BAG ORDERED AND INFUSING AT THIS TIME. LAB CK ADJUSTED FOR 2000 TONIGHT. NO C/O PAIN. DENIES FURTHER NEEDS AT THIS TIME. CALL LT IN REACH.
[2023-08-26 17:01] VITALS: BP 139/106
[2023-08-26 19:30] VITALS: BP 141/102
[2023-08-26 22:04] LABS: Bun/Creatinine Ratio 7.5 (12.0-20.0); Calcium, Blood 9.4 mg/dL (8.5-10.1); Creatinine, Blood 1.07 mg/dL (0.60-1.20); Potassium, Blood 4.1 mmol/L (3.5-5.5)
[2023-08-27 03:47] VITALS: BP 166/107
[2023-08-27 06:03] LABS: BASOPHILS ABSOLUTE AUTO 0.04 K/mm3 (0.00-0.23); BASOPHILS PERCENT AUTO 0 % (0-2); EOSINOPHILS ABSOLUTE AUTO 0.01 K/mm3 (0.00-0.68); EOSINOPHILS PERCENT AUTO 0 % (0-6); Hematocrit 40.7 % (37.0-53.0); Hemoglobin 14.3 g/dL (13.5-17.5); IMMATURE GRAN ABSOLUTE AUTO 0.05 K/mm3 (0.00-0.10); IMMATURE GRAN PERCENT AUTO 1 % (0-1); LYMPHOCYTES ABSOLUTE AUTO 1.81 K/mm3 (0.84-5.20); LYMPHOCYTES PERCENT AUTO 18 % (21-46); MONOCYTES ABSOLUTE AUTO 0.94 K/mm3 (0.16-1.47); MONOCYTES PERCENT AUTO 10 % (4-13); Mean Corpuscular HGB 29.9 pg (26.0-34.0); Mean Corpuscular HGB Conc 35.1 g/dL (31.5-36.5); Mean Corpuscular Volume 85 fL (80-100); NEUTROPHILS ABSOLUTE AUTO 6.98 K/mm3 (1.96-9.15); NEUTROPHILS PERCENT AUTO 71 % (41-73); Platelet Count 207 K/mm3 (150-400); RDW Coefficient Variation 13.2 % (11.7-14.2); RDW Standard Deviation 40.8 fL (35.1-46.3); Red Blood Cell Count 4.78 M/mm3 (4.30-5.90); White Blood Cell Count 9.83 K/mm3 (4.00-11.30)
[2023-08-27 06:25] LABS: Anion Gap 11 mmol/L (3-11); Blood Urea Nitrogen 10 mg/dL (8-24); Bun/Creatinine Ratio 9.4 (12.0-20.0); CO2, Blood 25 mmol/L (21-32); Calcium, Blood 9.5 mg/dL (8.5-10.1); Chloride, Blood 106 mmol/L (98-108); Creatinine, Blood 1.06 mg/dL (0.60-1.20); Glomerular Filtration Rate 91 (60-); Glucose, Blood 109 mg/dL (70-99); Phosphorus, Blood 2.1 mg/dL (2.5-4.9); Potassium, Blood 3.6 mmol/L (3.5-5.5); Sodium, Blood 138 mmol/L (136-145)
[2023-08-27] MEDS ORDERED: Labetalol HCL 5 MG/ML 4ML Injection (Single Dose) IV PRN (07:00)
[2023-08-27 07:12] VITALS: BP 146/106
--- NOTE | 2023-08-27 07:13 | NUR ---
SHIFT SUMMARY PT IS A&OX4, COOPERATIVE WITH CARES. DENIES PAIN. HYPERTENSIVE 141/102, HR 81, TMAX 99.8, ON RA. MAXIME IS STILL HAVING SEVERE N/V, MEDICATED PER EMAR. ANTINAUSEA MEDICATIONS WITH MINIMAL EFFECTIVENESS. ON A FULL LIQUID DIET. UP AD JERMAIN IN ROOM/BR INDEPENDENTLY. VOIDING ADEQUATE AMOUNTS OF CLEAR, LIGHT YELLOW URINE. NO BM THIS SHIFT. REPOSITIONS SELF INDEPENDENTLY IN BED. BED IN LOWEST POSITION, CALL LIGHT WITHIN REACH.
[2023-08-27] MEDS ORDERED: Potassium Phosphate Dibasic 15 MM in Dextrose 5% 250 ML IV STA (08:55)
[2023-08-27] MEDS ORDERED: Losartan Potassium 50 MG Tab PO SCH (09:00)
[2023-08-27 10:45] VITALS: BP 154/111
[2023-08-27] MEDS ORDERED: Capsaicin 0.025% Cream TOP PRN (10:55)
--- NOTE | 2023-08-27 15:09 | NUR ---
SHIFT SUMMARY PT RESTING QUIETLY AT START OF SHIFT. WOKE EASILY FOR REPORT. DENIED NAUSEA AT THAT TIME. REQUESTED SHOWER. NEEDLE LOOM OPERATOR ASSISTED WITH SET UP. PT IS INDEPENDENT IN AND TO HR. PT NOT EATING MUCH FOR BREAKFAST, BUT WAS ABLE TO KEEP DOWN WHAT HE DID TAKE IN. PT CONTINUED TO DENY N/V TODAY. ABLE TO EAT A LITTLE MORE FOR LUNCH. PT HOPING TO GO HOME TODAY. IV K-PHOS GIVEN PER EMAR THIS AM. DR POSADAS IN RECENTLY TO SEE PT AND DISCUSS PLAN OF CARE. PT REPORTING THAT HE MAY GO HOME. DENIES FURTHER NEEDS AT THIS TIME. CALL LT IN REACH.
[2023-08-27] MEDS ORDERED: ONDA4ODT MM (16:01)
[2023-08-29 12:43] LABS: 11-NOR-9-CARBOXY-THC,URN,QUANT 484 ng/mL
== END 2023-08-27 16:05 | disposition home or self-care (01) | DRG 392 ==
LOC: ER 16:56 → MEDS 17:17
PROVIDERS: Family Medicine; Nurse Practitioner; Student in an Organized Health Care Education/Training Program; ADMIT Student in an Organized Health Care Education/Training Program
DX: R11.2 Nausea with vomiting, unspecified (principal); N17.9 Acute kidney failure, unspecified; I10 Essential (primary) hypertension; K21.9 Gastro-esophageal reflux disease without esophagitis; E87.6 Hypokalemia; F12.188 Cannabis abuse with other cannabis-induced disorder; E83.39 Other disorders of phosphorus metabolism; E86.0 Dehydration; E86.9 Volume depletion, unspecified; Z87.891 Personal history of nicotine dependence; Z88.0 Allergy status to penicillin; Z87.19 Personal history of other diseases of the digestive system; Z98.890 Other specified postprocedural states; Z88.5 Allergy status to narcotic agent; Z79.899 Other long term (current) drug therapy; Z87.11 Personal history of peptic ulcer disease
CPT/HCPCS: 36415; 74177; 80048; 80053; 80069; 81001; 82248; 83690; 83735; 85025; 93005; 93010; 96361; 96365; 96366; 96372; 96374-59; 96375; 96375-59; 96376; 99285-25; A9270; G0378; J1200; J1650; J1790; J2405; J2765; J3480; J7030; J7042; J7050; J7060; J7120; J7121; Q9967

== ENCOUNTER 2023-10-08 12:52 | Day surgery (SDC) | payer OTHER ==
[~2023-10-08] VITALS: Ht 170.2 cm; Wt 63.4 kg
[~2023-10-08 12:52] MED LIST changes: +Lactated Ringer's 1,000 ML IV ONE; +propofoL 50 ML IV ONE
[2023-10-08] MEDS ORDERED: PROM25 (13:30)
[2023-10-08] MEDS ORDERED: Lactated Ringer's 1,000 ML IV ONE ×2 (14:17→14:55)
[2023-10-08 16:00] VITALS: BP 100/74
--- NOTE | 2023-10-08 16:01 | NUR ---
10/08/23 1601 LENIN COOPER IV REMOVED AT 1538 IN SDU/ 650 LTC
== END 2023-10-08 15:55 | disposition home or self-care (01) ==
LOC: ORSCSDS 12:52
PROVIDERS: Internal Medicine Gastroenterology
PROC: 0DJ08ZZ Inspection of Upper Intestinal Tract, Via Natural or Artificial Opening Endoscopic (ICD-10-PCS; principal; 2023-10-08 14:30)
DX: R10.13 Epigastric pain (principal); R11.2 Nausea with vomiting, unspecified; Z95.1 Presence of aortocoronary bypass graft; Z87.11 Personal history of peptic ulcer disease; K44.9 Diaphragmatic hernia without obstruction or gangrene; I12.9 Hypertensive chronic kidney disease with stage 1 through stage 4 chronic kidney disease, or unspecified chronic kidney disease; N18.2 Chronic kidney disease, stage 2 (mild); D63.1 Anemia in chronic kidney disease; Z79.899 Other long term (current) drug therapy
CPT/HCPCS: J2704; J7120

== ENCOUNTER 2023-10-26 15:37 | Inpatient (IN) | payer OTHER ==
[~2023-10-26] VITALS: Ht 170.2 cm; Wt 57.5 kg
[~2023-10-26 15:37] MED LIST changes: -Lactated Ringer's 1,000 ML IV ONE; +PROM25; -propofoL 50 ML IV ONE
[2023-10-26] MEDS ORDERED: Droperidol 5 mg/2 ml Vial IV ONE ×2 (15:55→17:10)
[2023-10-26] MEDS ORDERED: Lactated Ringer's 1,000 ML IV ONE ×2 (16:00→23:21)
[2023-10-26] MEDS ORDERED: DiphenhydrAMINE HCl 50 MG/ML 1ML Vial IV ONE (16:00)
[2023-10-26 16:11] LABS: BASOPHILS ABSOLUTE AUTO 0.04 K/mm3 (0.00-0.23); BASOPHILS PERCENT AUTO 0 % (0-2); EOSINOPHILS ABSOLUTE AUTO 0.01 K/mm3 (0.00-0.68); EOSINOPHILS PERCENT AUTO 0 % (0-6); Hematocrit 37.7 % (37.0-53.0); IMMATURE GRAN ABSOLUTE AUTO 0.04 K/mm3 (0.00-0.10); IMMATURE GRAN PERCENT AUTO 0 % (0-1); LYMPHOCYTES ABSOLUTE AUTO 2.74 K/mm3 (0.84-5.20); LYMPHOCYTES PERCENT AUTO 29 % (21-46); MONOCYTES PERCENT AUTO 11 % (4-13); Mean Corpuscular HGB 30.4 pg (26.0-34.0); Mean Corpuscular HGB Conc 34.5 g/dL (31.5-36.5); Mean Corpuscular Volume 88 fL (80-100); Mean Platelet Volume 10.8 fL (9.1-12.4); NEUTROPHILS PERCENT AUTO 59 % (41-73); Platelet Count 222 K/mm3 (150-400); RDW Coefficient Variation 12.8 % (11.7-14.2); RDW Standard Deviation 41.1 fL (35.1-46.3); Red Blood Cell Count 4.28 M/mm3 (4.30-5.90); White Blood Cell Count 9.43 K/mm3 (4.00-11.30)
[2023-10-26 17:46] LABS: Albumin/Globulin Ratio 1.4 (0.8-1.8); Bilirubin, Total 1.3 mg/dL (0.1-1.0); Bun/Creatinine Ratio 14.1 (12.0-20.0); Creatinine, Blood 0.99 mg/dL (0.60-1.20); Globulin, Blood 2.2 g/dL (2.2-4.0); Potassium, Blood 2.6 mmol/L (3.5-5.5)
[2023-10-26 17:50] LABS: Calcium, Blood 6.6 mg/dL (8.5-10.1); Total Protein, Blood 5.2 g/dL (6.4-8.2)
[2023-10-26] MEDS ORDERED: Ondansetron HCl 2 MG / ML 2ML Vial IV ONE (18:05)
[2023-10-26] MEDS ORDERED: NS KCL 40 mEq 1,000 ML IV SCH (18:05)
[2023-10-26] MEDS ORDERED: Potassium Chloride 20 MEQ/15 ML UDC PO ONE (18:05)
[2023-10-26 18:50] LABS: Magnesium, Blood 1.4 mg/dL (1.6-2.4)
[2023-10-26] MEDS ORDERED: Pantoprazole Sodium 40 MG Injection IV ONE (19:15)
[2023-10-26 19:40] LABS: Base Excess Venous 0.3 mmol/L; Bicarbonate Venous 25.2 mmol/L (24.0-30.0); PCO2 Venous 34 mmHg (38-42); pH Blood Venous 7.46 (7.34-7.37)
[2023-10-26] MEDS ORDERED: Mag Sulfate 1 GM/D5% 100ML 100 ML IV ONE (20:00)
[2023-10-26] MEDS ORDERED: Metoclopramide HCl 5MG / ML 2ML Vial IV PRN (20:55)
[2023-10-26] MEDS ORDERED: Lactated Ringer's 1,000 ML IV SCH (20:55)
[2023-10-26] MEDS ORDERED: Ondansetron HCl 2 MG / ML 2ML Vial IV PRN (20:55)
[2023-10-26 20:57] LABS: Source, Urine Clean Catch
[2023-10-26 21:01] LABS: Bilirubin, Urine Neg (Neg); Blood, Urine 2+ (Neg); Glucose Qualitative, Urine Neg (Neg); Ketones, Urine 3+ (Neg); Leukocyte Esterase, Urine Neg (Neg); Nitrite, Urine Neg (Neg); Protein, Urine Neg (Neg); Urobilinogen, Urine NORM (Normal)
[2023-10-26] MEDS ORDERED: Mag Sulfate 1 GM/D5% 100ML 100 ML IV STA (21:03)
[2023-10-26 21:05] LABS: Appearance, Urine Clear (Clear); Color, Urine Yellow (P-Yellow)
[2023-10-26] MEDS ORDERED: HydrALAZINE HCl 20 MG / ML 1ML Vial IV PRN (21:05)
[2023-10-26 21:06] LABS: Amorphous Light (0-Heavy); Bacteria Not Seen /hpf; Mucus Light (0-Heavy); Squamous Epithelial Cells Not Seen /hpf (Few); White Blood Cells, Urine Not Seen /hpf (0-5)
[2023-10-26 21:16] LABS: Beta-hydroxybutyrate 6.5 mg/dL (0.2-2.8)
[2023-10-26 21:28] LABS: U Amphetamine Screen Not Detected; U Barbituate Screen Not Detected; U Benzodiazapine Screen Not Detected; U Buprenorphine Screen Not Detected; U Cannabinoids Screen DETECTED; U Cocaine Screen Not Detected; U Methadone Screen Not Detected; U Methamphetamine Screen Not Detected; U Opiates Screen Not Detected; U Oxycodone Screen Not Detected; U Phencyclidine Screen Not Detected
[2023-10-27 05:21] LABS: Hemoglobin 14.2 g/dL (13.5-17.5); Mean Corpuscular HGB 30.1 pg (26.0-34.0); Mean Corpuscular HGB Conc 35.5 g/dL (31.5-36.5); Mean Corpuscular Volume 85 fL (80-100); Mean Platelet Volume 10.5 fL (9.1-12.4); Platelet Count 234 K/mm3 (150-400); RDW Coefficient Variation 12.6 % (11.7-14.2); RDW Standard Deviation 38.8 fL (35.1-46.3); Red Blood Cell Count 4.71 M/mm3 (4.30-5.90); White Blood Cell Count 10.25 K/mm3 (4.00-11.30)
[2023-10-27 05:45] LABS: Magnesium, Blood 2.2 mg/dL (1.6-2.4)
[2023-10-27 05:52] LABS: Bun/Creatinine Ratio 9.4 (12.0-20.0); Calcium, Blood 8.6 mg/dL (8.5-10.1); Creatinine, Blood 0.95 mg/dL (0.60-1.20); Potassium, Blood 3.5 mmol/L (3.5-5.5)
[2023-10-27] MEDS ORDERED: Pantoprazole Sodium 40 MG Injection IV SCH (06:00)
[2023-10-27] MEDS ORDERED: Droperidol 5 mg/2 ml Vial IV ONE (07:35)
[2023-10-27] MEDS ORDERED: Droperidol 5 mg/2 ml Vial IV PRN (07:40)
[2023-10-27] MEDS ORDERED: Enoxaparin 40 MG/0.4 ML SYR SC SCH (09:00)
[2023-10-27] MEDS ORDERED: Lactated Ringer's 1,000 ML IV ONE (10:32)
[2023-10-27] MEDS ORDERED: LORazepam 2 MG/ML 1ML Injection IV PRN (11:10)
[2023-10-27] MEDS ORDERED: Potassium Chloride 20 MEQ TabCR PO ONE (12:00)
[2023-10-27] MEDS ORDERED: AmLODIPine Besylate 5 MG Tab PO SCH (13:00)
[2023-10-27] MEDS ORDERED: Dicyclomine HCl 20 MG Tab PO SCH (13:00)
[2023-10-27 15:32] VITALS: BP 156/102
[2023-10-27] MEDS ORDERED: Losartan Potassium 50 MG Tab PO SCH (18:00)
--- NOTE | 2023-10-27 18:18 | NUR ---
ADMIT NOTE PATIENT ARRIVED TO MEDICAL FLOOR FROM ER THIS SHIFT. WRETCHING AND TENSING ON ARRIVAL, HTN MAY NOT BE ACCURATELY REFLECTED DUE TO THIS, MEDICATIONS ADMINISTERED FOR NAUSEA, PATIENT DECLINED TO HAVE BLOOD PRESSURE TAKEN AGAIN AT THIS TIME. SKIN INTACT, CLOTHING SMELLS OF MARIJUANA. A/OX4. IV TO L AC INFUSING, NO COMPLICATIONS. ABLE TO MAKE NEEDS KNOWN. CALL LIGHT IN REACH, CARES ONGOING.
--- NOTE | 2023-10-27 18:47 | NUR ---
REQUESTED SURAJ FROM PHARMACY
[2023-10-27 20:19] VITALS: BP 152/122
[2023-10-28 01:58] VITALS: BP 137/106
--- NOTE | 2023-10-28 05:03 | NUR ---
Pt medicated 2129 for c/o nausea with dry heaves. good relief noted. Pt OOB ad marco up to br. tolerated well. pt resting quietly in bed with eys closed at this time.
[2023-10-28 05:18] LABS: BASOPHILS ABSOLUTE AUTO 0.03 K/mm3 (0.00-0.23); BASOPHILS PERCENT AUTO 0 % (0-2); EOSINOPHILS ABSOLUTE AUTO 0.04 K/mm3 (0.00-0.68); EOSINOPHILS PERCENT AUTO 1 % (0-6); Hematocrit 40.9 % (37.0-53.0); Hemoglobin 14.5 g/dL (13.5-17.5); IMMATURE GRAN ABSOLUTE AUTO 0.06 K/mm3 (0.00-0.10); IMMATURE GRAN PERCENT AUTO 1 % (0-1); LYMPHOCYTES ABSOLUTE AUTO 2.41 K/mm3 (0.84-5.20); LYMPHOCYTES PERCENT AUTO 29 % (21-46); MONOCYTES ABSOLUTE AUTO 0.85 K/mm3 (0.16-1.47); MONOCYTES PERCENT AUTO 10 % (4-13); Mean Corpuscular HGB 30.2 pg (26.0-34.0); Mean Corpuscular HGB Conc 35.5 g/dL (31.5-36.5); Mean Corpuscular Volume 85 fL (80-100); Mean Platelet Volume 10.6 fL (9.1-12.4); NEUTROPHILS ABSOLUTE AUTO 4.88 K/mm3 (1.96-9.15); NEUTROPHILS PERCENT AUTO 59 % (41-73); Platelet Count 213 K/mm3 (150-400); RDW Coefficient Variation 12.6 % (11.7-14.2); RDW Standard Deviation 39.3 fL (35.1-46.3); White Blood Cell Count 8.27 K/mm3 (4.00-11.30)
[2023-10-28 05:37] LABS: Bun/Creatinine Ratio 9.3 (12.0-20.0); Calcium, Blood 8.5 mg/dL (8.5-10.1); Creatinine, Blood 1.07 mg/dL (0.60-1.20); Potassium, Blood 3.3 mmol/L (3.5-5.5)
[2023-10-28 07:19] VITALS: BP 131/94
[2023-10-28] MEDS ORDERED: Potassium Chloride 20 MEQ TabCR PO ONE (09:00)
[2023-10-28] MEDS ORDERED: Bentyl20 MG PO (11:38)
--- NOTE | 2023-10-28 15:21 | NUR ---
DC-1445- PT BROUGHT DOWN IN IN STABLE CONDITION FOR [employer] [facility]. PT LEFT WITH ALL BELONGINGS.
== END 2023-10-28 14:36 | disposition home or self-care (01) | DRG 394 ==
LOC: ER 15:37 → ERHOLD 15:38 → MEDS 10-27 15:24
PROVIDERS: Emergency Medicine; Internal Medicine; Nurse Practitioner Acute Care; ADMIT Family Medicine
DX: R11.15 Cyclical vomiting syndrome unrelated to migraine (principal); E87.21 Acute metabolic acidosis; F12.20 Cannabis dependence, uncomplicated; K21.9 Gastro-esophageal reflux disease without esophagitis; E87.6 Hypokalemia; I10 Essential (primary) hypertension; E83.42 Hypomagnesemia; E87.8 Other disorders of electrolyte and fluid balance, not elsewhere classified; Z88.0 Allergy status to penicillin; Z88.5 Allergy status to narcotic agent; Z79.899 Other long term (current) drug therapy; Z87.19 Personal history of other diseases of the digestive system; Z87.11 Personal history of peptic ulcer disease; Z98.890 Other specified postprocedural states; Z87.891 Personal history of nicotine dependence; R11.2 Nausea with vomiting, unspecified; R10.10 Upper abdominal pain, unspecified
CPT/HCPCS: 36415; 80048; 80053; 81001; 82010; 82803; 83605; 83690; 83735; 85025; 85027; 93005; 93010; 96361; 96365; 96366; 96372; 96372-59; 96374; 96375; 96376; 99284-25; 99285-25; A9270; G0378; J0360; J0500; J1200; J1650; J1790; J2060; J2405; J2470; J2765; J3475; J3480; J7030; J7120